=== PATIENT | female | born 1995 | race Caucasian/White ===

== ENCOUNTER 2018-04-13 22:07 | Emergency (ER) | payer BC, SELFPAY ==
[2018-04-13 22:55] LABS: Absolute Monocytes 0.6 K/uL (0.1-1.3); Absolute Neutrophil 7.5 K/uL (1.8-8.0); Basophils % 0.4 % (0-1.3); Eosinophils % 1.2 % (0-4.4); Hematocrit 43.4 % (36.0-45.0); Lymphocytes % 19.2 % (15.3-44.8); MCH 27.1 pg (27.0-35.0); MCV 80.9 fL (80-100); MPV 8.6 fL (7.6-11.3); Monocytes % 6.2 % (3.3-12.3); RBC Red Blood Cell Count 5.36 M/uL (3.86-4.86)
[2018-04-13 23:01] LABS: Urine Blood NEGATIVE (NEG); Urine Glucose NEGATIVE (NEG); Urine Protein TRACE (NEG); Urine Specific Gravity >1.030 (1.005-1.030); Urine pH 5.5 (5.0-7.0)
[2018-04-13 23:02] LABS: Urine Bacteria <20 /HPF (<20); Urine Culture Reflex Order NOT NEEDED; Urine Mucus 1+ /HPF (NONE SEEN); Urine RBC <5 /HPF (NONE SEEN)
[2018-04-13 23:08] LABS: Bicarbonate 26 mEq/L (21-31); Glucose Level 95 mg/dL (65-120); Lipase 20 U/L (22-51); Potassium 3.7 mEq/L (3.6-5.0); Sodium Level 139 mEq/L (135-145)
[2018-04-13 23:15] LABS: ALT/SGPT 19 IU/L (10-60); AST/SGOT 17 IU/L (10-42); Albumin 4.7 g/dL (3.2-5.5); Alkaline Phosphatase 64 IU/L (42-121); Amylase Level 27 U/L (28-100); BUN Blood Urea Nitrogen 16 mg/dL (6-20); Bilirubin Direct < 0.1 mg/dL (0-0.2); Bilirubin Total 0.5 mg/dL (0.3-1.2); Protein, Total 8.2 g/dL (6.0-8.3)
--- NOTE | 2018-04-13 23:59 | EDPHYS ---
Physician Documentation [facility] Name: Sis Arroyo Age: 23 yrs Sex: Female : 1995 Arrival Date: 04/13/2018 Time: 22:11 Bed 30 Private MD: ED Physician David Cummings HPI: 04/14 00:02 This 23 yrs old Female presents to ER via Ambulatory with complaints of tw4 Abdominal Pain, Nausea/Vomiting/Diarrhea. 00:02 The patient presents to the emergency department with nausea, vomiting, diarrhea. tw4 Onset: The symptoms/episode began/occurred 3 day(s) ago. Possible causes: unknown. The symptoms are aggravated by nothing. The symptoms are alleviated by nothing. Associated signs and symptoms: The patient has no apparent associated signs or symptoms. Severity of symptoms: At their worst the symptoms were moderate in the emergency department the symptoms are unchanged. The patient has not experienced similar symptoms in the past. 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 - Social history:: Smoking status: Patient/guardian denies using tobacco, never smoked. ROS: 04/14 00:02 Constitutional: Negative for fever, chills, and weight loss, Cardiovascular: Negative tw4 for chest pain, palpitations, and edema, Respiratory: Negative for shortness of breath, cough, wheezing, and pleuritic chest pain. MS/Extremity: Negative for injury and deformity, Skin: Negative for injury, rash, and discoloration, Neuro: Negative for headache, weakness, numbness, tingling, and seizure. Abdomen/GI: Positive for abdominal pain, nausea, vomiting, diarrhea. Exam: 00:02 Constitutional: This is a well developed, well nourished patient who is awake, alert, tw4 and in no acute distress. Head/Face: Normocephalic, atraumatic. Chest/axilla: Normal chest wall appearance and motion. Nontender with no deformity. No lesions are appreciated. Cardiovascular: Regular rate and rhythm with a normal S1 and S2. No gallops, murmurs, or rubs. Normal PMI, no JVD. No pulse deficits. Respiratory: Lungs have equal breath sounds bilaterally, clear to auscultation and percussion. No rales, rhonchi or wheezes noted. No increased work of breathing, no retractions or nasal flaring. Abdomen/GI: Soft, non-tender, with normal bowel sounds. No distension or tympany. No guarding or rebound. No evidence of tenderness throughout. MS/ Extremity: Pulses equal, no cyanosis. Neurovascular intact. Full, normal range of motion. Neuro: Awake and alert, GCS 15, oriented to person, place, time, and situation. Cranial nerves II-XII grossly intact. Motor strength 5/5 in all extremities. Sensory grossly intact. Cerebellar exam normal. Normal gait. Vital Signs: 04/13 22:26 BP 106 / 57; Pulse 98; Resp 17; Temp 98.7; Pulse Ox 99% ; rk2 22:33 Weight 104.33 kg; rk2 23:00 BP 122 / 82; Pulse 102; Resp 17; Pulse Ox 99% ; rk2 04/14 00:13 BP 144 / 96; Pulse 99; Resp 17; Pulse Ox 99% on R/A; rk2 MDM: 04/13 22:33 Patient medically screened. tw4 04/14 00:02 Differential diagnosis: Nonspecific abd pain, gastritis, cholecystitis, pancreatitis. tw4 Data reviewed: vital signs, nurses notes. Counseling: I had a detailed discussion with the patient and/or guardian regarding: the historical points, exam findings, and any diagnostic results supporting the discharge/admit diagnosis, lab results. Medication response: Medication response: GI Cocktail relieved the patient's pain. The symptoms have resolved. Response to treatment: the patient's symptoms have markedly improved after treatment. Admission orders: after a detailed discussion of the patient's condition and case, the admit orders are written by me. Special discussion: Based on the patient's Hx, exam, and Dx evaluation, there is no indication for emergent surgery or inpatient Tx. It is understood by the patient/guardian that if the Sx's persist or worsen they need to return immediately for re-evaluation. I discussed with the patient/guardian in detail that at this point there is no indication for admission to the hospital. It is understood, however, that if the symptoms persist or worsen the patient needs to return immediately for re-evaluation. 04/13 22:38 Order name: Amylase, Serum; Complete Time: 23:58 04/13 22:38 Order name: Basic Metabolic Panel; Complete Time: 23:58 04/13 22:38 Order name: CBC with Diff; Complete Time: 23:58 04/13 22:38 Order name: Creatinine for Radiology; Complete Time: 23:58 04/13 22:38 Order name: Hepatic Function; Complete Time: 23:58 04/13 22:38 Order name: Lipase; Complete Time: 23:58 04/13 22:38 Order name: Urine Test (obtain specimen); Complete Time: 22:53 04/13 22:38 Order name: Urine Microscopic Only; Complete Time: 23:58 04/13 22:38 Order name: IV Saline Lock; Complete Time: 22:44 04/13 22:38 Order name: Labs collected and sent; Complete Time: 22:44 04/13 22:38 Order name: Urine Dipstick-Ancillary (obtain specimen); Complete Time: 22:52 04/13 22:58 Order name: Urine Dipstick--Ancillary (enter results); Complete Time: 23:58 mt 04/13 22:58 Order name: Urine --Ancillary (enter results); Complete Time: 23:58 mt Administered Medications: 00:10 Drug: GI Cocktail with - (Phenobarbital-Belladonna 10 ml, Maalox Suspension 30 rk2 ml, Lidocaine Liquid 2 % 20 ml) Route: PO; 00:10 Follow up: given \T\ DC rk2 Disposition: 04/13/18 23:58 Discharged to Home. Impression: Gastritis, unspecified, without bleeding. - Condition is Stable. - Discharge Instructions: Gastritis, Adult. - Prescriptions for Protonix 40 mg Oral Tablet - take 1 tablet by ORAL route once daily; 30 tablet. Zofran 4 mg Oral Tablet - take 1 tablet by ORAL route every 12 hours As needed; 6 tablet. - Medication Reconciliation Form, Thank You Letter, Antibiotic Education, Prescription Opioid Use form. - Follow up: Private Physician; When: Upon discharge from the Emergency Department; Reason: Recheck today's complaints, Continuance of care, Re-evaluation by your physician. - Problem is an ongoing problem. - Symptoms have improved. Signatures: Dispatcher [employer] EDMS David Cummings MD MD tw4 Valeria Barrios RN RN rk2 Corrections: (The following items were deleted from the chart) 00:16 04/13 23:58 04/13/2018 23:58 Discharged to Home. Impression: Gastritis, unspecified, rk2 without bleeding. Condition is Stable. Forms are Medication Reconciliation Form, Thank You Letter, Antibiotic Education, Prescription Opioid Use. Follow up: Private Physician; When: Upon discharge from the Emergency Department; Reason: Recheck today's complaints, Continuance of care, Re-evaluation by your physician. Problem is an ongoing problem. Symptoms have improved. tw4
--- NOTE | 2018-04-13 23:59 | ER ---
Nurse's Notes [facility] Name: Sis Arroyo Age: 23 yrs Sex: Female : 1995 Arrival Date: 04/13/2018 Time: 22:11 Bed 30 Private MD: Diagnosis: Gastritis, unspecified, without bleeding Presentation: 04/13 22:21 Presenting complaint: Patient states: Pt. c/o ABD pain, with N/V/D x 2-3 days. Pt. was rk2 seen \T\ GI doctor today, no blood work. Transition of care: patient was not received from another setting of care. Onset of symptoms was April 13, 2018. Initial Sepsis Screen: Does the patient meet any 2 criteria? No. Patient's initial sepsis screen is negative. Does the patient have a suspected source of infection? No. Patient's initial sepsis screen is negative. Care prior to arrival: None. 22:21 Method Of Arrival: Ambulatory [facility] 22:21 Acuity: FABRICIO 3 rk2 Triage Assessment: 22:24 General: Appears in no apparent distress. obese, well developed, well nourished, rk2 Behavior is calm, cooperative. Pain: Complains of pain in abdomen. Neuro: Level of Consciousness is alert, obeys commands, Oriented to person, place, time, situation. Respiratory: Airway is patent Respiratory effort is even, unlabored, Respiratory pattern is regular, symmetrical. GI:. Derm: Skin is pink, warm \T\ dry. 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 - Social history:: Smoking status: Patient/guardian denies using tobacco, never smoked. Screenin:35 Abuse screen: Denies threats or abuse. rk2 22:35 Nutritional screening: No deficits noted. Tuberculosis screening: No symptoms or risk rk2 factors identified. Fall Risk None identified. Assessment: 22:35 GI: Abd is soft X 4 quads Abdomen is tender to palpation X 4 quads. rk2 Vital Signs: 22:26 BP 106 / 57; Pulse 98; Resp 17; Temp 98.7; Pulse Ox 99% ; rk2 22:33 Weight 104.33 kg; rk2 23:00 BP 122 / 82; Pulse 102; Resp 17; Pulse Ox 99% ; rk2 04/14 00:13 BP 144 / 96; Pulse 99; Resp 17; Pulse Ox 99% on R/A; rk2 ED Course: 04/13 22:11 Patient arrived in ED. es 22:13 Valeria Barrios, RN is Primary Nurse. rk2 22:24 Triage completed. rk2 22:33 David Cummings MD is Attending Physician. tw4 22:35 Patient has correct armband on for positive identification. Bed in low position. Call rk2 light in reach. Pulse ox on. 22:35 Arm band placed on. rk2 04/14 00:15 No provider procedures requiring assistance completed. IV discontinued. rk2 Administered Medications: 00:10 Drug: GI Cocktail with - (Phenobarbital-Belladonna 10 ml, Maalox Suspension 30 rk2 ml, Lidocaine Liquid 2 % 20 ml) Route: PO; 00:10 Follow up: given \T\ DC rk2 Intake: Outcome: 04/13 23:58 Discharge ordered by . tw4 04/14 00:15 Discharged to home ambulatory. rk2 Condition: good Discharge instructions given to patient, Prescriptions given X 2. 00:16 Patient left the ED. rk2 Signatures: Carola Duran Terrence, MD MD tw4 Valeria Barrios, RN RN rk2 Corrections: (The following items were deleted from the chart) 00:13 04/13 23:00 BP 144 / 96; Pulse 99bpm; Resp 17bpm; Pulse Ox 99% RA; rk2 rk2
[2018-04-14] MEDS ORDERED: LIDOCAINE VISCOUS 2% SOLN 15 ML UDC ONE (00:04)
[2018-04-14] MEDS ORDERED: MAGNE/ALUM HYDROXD 30 ML UCUP ONE (00:04)
[2018-04-14 00:39] VITALS: TEMP 98.7; O2SAT 99
[2018-04-14 00:42] VITALS: BP 144/96
== END 2018-04-14 00:16 | disposition home or self-care (01) ==
LOC: ER 22:07
DX: K29.70 Gastritis, unspecified, without bleeding (principal)
CPT/HCPCS: 36415; 80048; 80076; 81003; 81015; 81025; 82150; 83690; 85025; 99283

== ENCOUNTER 2018-05-18 01:50 | Emergency (ER) | payer BC ==
--- NOTE | 2018-05-18 02:23 | ER ---
Nurse's Notes [facility] Name: Sis Arroyo Age: 23 yrs Sex: Female : 1995 Arrival Date: 05/18/2018 Time: 01:58 Bed 14 Private MD: Diagnosis: Otitis media, unspecified, left ear;Acute sinusitis, unspecified;Cough Presentation: 05/18 02:08 Presenting complaint: Patient states: "My face is swollen, my left side of my mouth and bs1 teeth hurt, my throat is sore, I cant breathe out of my nose and if I lay down I feel short of breath and my chest feels congested.". Transition of care: patient was not received from another setting of care. Onset of symptoms was May 17, 2018. Risk Assessment: Do you want to hurt yourself or someone else? Patient reports no desire to harm self or others. Initial Sepsis Screen: Does the patient meet any 2 criteria? HR > 90 bpm. Does the patient have a suspected source of infection? No. Patient's initial sepsis screen is negative. Care prior to arrival: None. 02:08 Method Of Arrival: Ambulatory bs1 02:08 Acuity: FABRICIO 4 bs1 Triage Assessment: 02:32 General: Behavior is cooperative, appropriate for age. 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 - Social history:: Smoking status: Patient/guardian denies using tobacco. - Ebola Screening: : Patient negative for fever greater than or equal to 101.5 degrees Fahrenheit, and additional compatible Ebola Virus Disease symptoms Patient denies exposure to infectious person. Screenin:14 Abuse screen: Denies threats or abuse. Denies injuries from another. Nutritional bs1 screening: No deficits noted. Tuberculosis screening: No symptoms or risk factors identified. Fall Risk None identified. Assessment: 02:15 General: Appears in no apparent distress. uncomfortable, obese. Pain: Complains of pain bs1 in throat, face, left ear/teeth. Neuro: Level of Consciousness is awake, alert, obeys commands, Oriented to person, place, time, situation, Appropriate for age. Cardiovascular: Heart tones S1 S2 present Capillary refill < 3 seconds Patient's skin is warm and dry. Respiratory: Reports shortness of breath at rest on exertion cough that is productive, Airway is patent Trachea midline Respiratory effort is even, unlabored, Respiratory pattern is regular, symmetrical, GI: Abdomen is round Bowel sounds present X 4 quads. Reports nausea. : No signs and/or symptoms were reported regarding the genitourinary system. EENT: Throat is reddened Reports nasal congestion patient reports face swelling, left side of teeth hurting, sore throat, and chest congestion. Derm: Skin is intact, Skin is pink, warm \\T\\ dry. normal. Musculoskeletal: Circulation, motion, and sensation intact. Capillary refill < 3 seconds, Range of motion: intact in all extremities. Vital Signs: 02:12 BP 141 / 122; Pulse 105; Resp 17; Temp 98.8(O); Pulse Ox 100% on R/A; Weight 117.93 kg; bs1 Height 5 ft. 3 in. (160.02 cm); Pain 5/10; 02:18 BP 136 / 99; Pulse 98; Resp 16 S; Pulse Ox 100% on R/A; bs1 02:12 Body Mass Index 46.06 (117.93 kg, 160.02 cm) bs1 ED Course: 01:58 Patient arrived in ED. es 02:02 Onelia Harris, MARIMAR is Primary Nurse. bs1 02:03 Mariano Shelton PA is PHCP. cp 02:03 Samuel Field MD is Attending Physician. cp 02:11 Triage completed. bs1 02:19 Patient has correct armband on for positive identification. Bed in low position. Call bs1 light in reach. Side rails up X 1. Pulse ox on. NIBP on. 02:19 Arm band placed on left wrist. bs1 02:31 No provider procedures requiring assistance completed. Patient did not have IV access bs1 during this emergency room visit. Administered Medications: No medications were administered Outcome: 02:23 Discharge ordered by . cp 02:32 Discharged to home ambulatory. bs1 02:32 Condition: stable 02:32 Discharge instructions given to patient, Instructed on discharge instructions, follow up and referral plans. medication usage, Demonstrated understanding of instructions, follow-up care, medications, Prescriptions given X 3. 02:33 Patient left the ED. bs1 Signatures: Carola Duran Corey, PA PA cp Salazar, Brittany, RN RN bs1 Corrections: (The following items were deleted from the chart) :33 02:18 BP 136 / 99; bs1 bs1
--- NOTE | 2018-05-18 02:23 | EDPHYS ---
Physician Documentation [facility] Name: Sis Arroyo Age: 23 yrs Sex: Female : 1995 Arrival Date: 05/18/2018 Time: 01:58 Bed 14 Private MD: ED Physician Samuel Field HPI: 05/18 02:14 This 23 yrs old Female presents to ER via Ambulatory with complaints of cp Cough, Sore Throat. 02:14 The patient or guardian reports cough, that is intermittent, with productive sputum, cp that is yellow. Onset: The symptoms/episode began/occurred 2 day(s) ago. Severity of symptoms: in the emergency department the symptoms are unchanged, despite home interventions. Associated signs and symptoms: Pertinent positives: earache, sore throat, left maxillary sinus pain, Pertinent negatives: chest pain, diarrhea, fever, vomiting. 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 - Social history:: Smoking status: Patient/guardian denies using tobacco. - Ebola Screening: : Patient negative for fever greater than or equal to 101.5 degrees Fahrenheit, and additional compatible Ebola Virus Disease symptoms Patient denies exposure to infectious person. ROS: 02:16 Eyes: Negative for injury, pain, redness, and discharge. cp 02:16 Constitutional: Negative for body aches, chills, fever, poor PO intake. 02:16 ENT: Positive for ear pain, sinus congestion, sinus pain, sore throat, Teeth pain 02:16 Neck: Negative for pain with movement, pain at rest, stiffness, tenderness, bony tenderness. 02:16 Cardiovascular: Negative for chest pain, edema, palpitations. 02:16 Respiratory: Positive for cough, with yellow sputum, Negative for shortness of breath, wheezing. 02:16 Abdomen/GI: Negative for abdominal pain, nausea, vomiting, diarrhea, constipation. 02:16 Back: Negative for pain at rest, pain with movement, radiated pain. 02:16 Skin: Negative for cellulitis, rash. 02:16 Neuro: Positive for headache, Negative for altered mental status, weakness. 02:16 All other systems are negative. Exam: 02:18 Constitutional: The patient appears in no acute distress, alert, awake, non-toxic, well cp developed, well nourished. 02:18 Head/face: Sinus tenderness, that is moderate, is located over the left maxillary sinus. 02:18 Eyes: Periorbital structures: appear normal, Pupils: equal, round, and reactive to light and accomodation, Extraocular movements: intact throughout, Conjunctiva: normal, no exudate, no injection, Sclera: no appreciated abnormality, Lids and lashes: appear normal, bilaterally. 02:18 ENT: External ear(s): are unremarkable, Ear canal(s): are normal, clear, TM's: bulging, is not appreciated, bilaterally, erythema, that is mild, on the left, Examination of the other ear shows no obvious abnormality, Nose: Nasal mucosa: edematous, Turbinates: are swollen bilaterally, nasal drainage, that is minimal, Mouth: Lips: moist, Oral mucosa: pink and intact, moist, Posterior pharynx: is normal, airway is patent, no erythema, no exudate. 02:18 Neck: ROM/movement: is normal, is supple, without pain, no range of motions limitations, no meningismus, no nuchal rigidity, Lymph nodes: no appreciated lymphadenopathy. 02:18 Chest/axilla: Inspection: normal, Palpation: is normal, no crepitus, no tenderness. 02:18 Cardiovascular: Rate: tachycardic, Rhythm: regular. 02:18 Respiratory: the patient does not display signs of respiratory distress, Respirations: normal, no use of accessory muscles, no retractions, no splinting, no tachypnea, labored breathing, is not present, Breath sounds: are clear throughout, no decreased breath sounds, no stridor, no wheezing. 02:18 Abdomen/GI: Exam negative for discomfort, distension, guarding, Inspection: obese 02:18 Back: pain, is absent, ROM is normal. 02:18 Skin: cellulitis, is not appreciated, no rash present. Vital Signs: 02:12 BP 141 / 122; Pulse 105; Resp 17; Temp 98.8(O); Pulse Ox 100% on R/A; Weight 117.93 kg; bs1 Height 5 ft. 3 in. (160.02 cm); Pain 5/10; 02:18 BP 136 / 99; Pulse 98; Resp 16 S; Pulse Ox 100% on R/A; bs1 02:12 Body Mass Index 46.06 (117.93 kg, 160.02 cm) bs1 MDM: 02:04 Patient medically screened. cp 02:21 Differential Diagnosis: Bronchitis Sinusitis Pharyngitis Otitis Media Viral Syndrome cp Pneumonia. Data reviewed: vital signs, nurses notes, and as a result, I will discharge patient. Counseling: I had a detailed discussion with the patient and/or guardian regarding: the presence of at least one elevated blood pressure reading (>120/80) during this emergency department visit, to return to the emergency department if symptoms worsen or persist or if there are any questions or concerns that arise at home. Administered Medications: No medications were administered Disposition: 02:34 Chart complete. cp 02:35 Co-signature as Attending Physician, Samuel Field MD. pkl Disposition: 05/18/18 02:23 Discharged to Home. Impression: Otitis media, unspecified, left ear, Acute sinusitis, unspecified, Cough. - Condition is Stable. - Discharge Instructions: Otitis Media, Adult, Sinusitis, Adult, Cool Mist Vaporizers, Cough, Adult. - Prescriptions for Flonase Allergy Relief 50 mcg/actuation Nasal spray,suspension - inhale 1 spray by INTRANASAL route once daily; 1 unit. Tessalon Perles 100 mg Oral Capsule - take 1 capsule by ORAL route every 8 hours As needed; 15 capsule. Zithromax Z- Klaus 250 mg Oral Tablet - take 1 tablet by ORAL route as directed for 5 days Day 1 - take two (2) tablets one time. Day 2, 3, 4 , 5 take one (1) tablet once daily.; 6 tablet. - Medication Reconciliation Form, Thank You Letter, Antibiotic Education, Prescription Opioid Use form. - Follow up: Private Physician; When: 1 - 2 days; Reason: Recheck today's complaints. - Problem is new. - Symptoms are unchanged. Signatures: Samuel Field MD MD pkl Mariano Shelton PA PA cp Salazar, Brittany, RN RN bs1 Corrections: (The following items were deleted from the chart) 02:33 02:23 05/18/2018 02:23 Discharged to Home. Impression: Otitis media, unspecified, left bs1 ear; Acute sinusitis, unspecified; Cough. Condition is Stable. Forms are Medication Reconciliation Form, Thank You Letter, Antibiotic Education, Prescription Opioid Use. Follow up: Private Physician; When: 1 - 2 days; Reason: Recheck today's complaints. Problem is new. Symptoms are unchanged. cp
[2018-05-18 04:01] VITALS: TEMP 98.8; O2SAT 100
[2018-05-18 04:02] VITALS: BP 136/99
== END 2018-05-18 02:33 | disposition home or self-care (01) ==
LOC: ER 01:50
DX: H66.92 Otitis media, unspecified, left ear (principal); J01.90 Acute sinusitis, unspecified; R05 Cough; Z88.0 Allergy status to penicillin
CPT/HCPCS: 99283

== ENCOUNTER 2019-10-04 09:32 | Emergency (ER) | payer BC, SELFPAY ==
--- NOTE | 2019-10-04 11:31 | ER ---
Nurse's Notes [facility] Name: Sis Arroyo Age: 24 yrs Sex: Female : 1995 Arrival Date: 10/04/2019 Time: 09:36 Bed 12 Private MD: None, None Diagnosis: Bronchitis, not specified as acute or chronic;Acute pharyngitis Presentation: 10/04 09:39 Presenting complaint: Patient states: hoarse voice, sore throat, nasal drainage and ss bilateral ear pain x 2 days. Transition of care: patient was not received from another setting of care. Onset of symptoms was October 02, 2019. Risk Assessment: Do you want to hurt yourself or someone else? Patient reports no desire to harm self or others. Initial Sepsis Screen: Does the patient meet any 2 criteria? No. Patient's initial sepsis screen is negative. Does the patient have a suspected source of infection? No. Patient's initial sepsis screen is negative. Care prior to arrival: None. 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 - Social history:: Smoking status: Patient/guardian denies using tobacco. - Ebola Screening: : Patient denies exposure to infectious person Patient denies travel to an Ebola-affected area in the 21 days before illness onset. - Family history:: not pertinent. Screenin:26 Abuse screen: Denies threats or abuse. Denies injuries from another. Nutritional ss screening: No deficits noted. Tuberculosis screening: Never had TB. Fall Risk None identified. Assessment: 10:26 General: Appears in no apparent distress. Behavior is calm, cooperative, Reports ss feeling ill for 2-3 days. Pain: Complains of pain in sore throat, painful cough Pain currently is 8 out of 10 on a pain scale. Quality of pain is described as aching, Pain began 2-3 days ago. Is continuous. Neuro: Level of Consciousness is awake, alert, obeys commands, Oriented to person, place, time, situation. Cardiovascular: Pulses are palpable in right radial artery and left radial artery. Respiratory: Airway is patent Respiratory effort is even, unlabored, Respiratory pattern is regular, symmetrical, Breath sounds are clear bilaterally. GI: Patient currently denies diarrhea, vomiting. : No signs and/or symptoms were reported regarding the genitourinary system. Denies burning with urination, urinary frequency. EENT: Throat is reddened hoarse voice. EENT: Reports nasal congestion nasal discharge. Derm: Skin is. Musculoskeletal: Range of motion: intact in all extremities. Vital Signs: 09:40 BP 128 / 82; Pulse 80; Resp 16; Temp 97.9(TE); Pulse Ox 96% on R/A; Weight 99.79 kg; ss Height 5 ft. 1 in. (154.94 cm); Pain 8/10; 09:40 Body Mass Index 41.57 (99.79 kg, 154.94 cm) ED Course: 09:36 Patient arrived in ED. mr 09:36 None, None is Private Physician. mr 09:40 Triage completed. ss 09:40 Arm band placed on right wrist. 10:21 Mariano Keane MD is Attending Physician. [facility] 10:26 Patient has correct armband on for positive identification. Bed in low position. Call ss light in reach. 11:50 Eulalia Toure, MARIMAR is Primary Nurse. 11:50 No provider procedures requiring assistance completed. Patient did not have IV access ss during this emergency room visit. Administered Medications: 11:46 Drug: Zithromax 500 mg Route: PO; 11:51 Follow up: Response: Medication administered at discharge. Outcome: 11:30 Discharge ordered by . [facility] 11:50 Discharged to home ambulatory. 11:50 Condition: good 11:50 Discharge instructions given to patient, Instructed on discharge instructions, follow up and referral plans. medication usage, Demonstrated understanding of instructions, follow-up care, medications, Prescriptions given X 3. 11:51 Patient left the ED. Signatures: Mariano Keane MD MD cha Rivera, Mary mr Eulalia Toure, RN RN ss
--- NOTE | 2019-10-04 11:32 | EDPHYS ---
Physician Documentation [facility] Name: Sis Arroyo Age: 24 yrs Sex: Female : 1995 Arrival Date: 10/04/2019 Time: 09:36 Bed 12 Private MD: None, None ED Physician Mariano Keane HPI: 10/04 11:27 This 24 yrs old Female presents to ER via Ambulatory with complaints of kalani Cough, Sore Throat, Congestion. 11:27 The patient or guardian reports cough, that is constant, flu symptoms, arthralgias. kalani Onset: The symptoms/episode began/occurred 3 day(s) ago. Severity of symptoms: At their worst the symptoms were mild, moderate, in the emergency department the symptoms have improved, mildly. Modifying factors: The symptoms are alleviated by nothing, the symptoms are aggravated by nothing. Associated signs and symptoms: The patient has no apparent associated signs or symptoms. The patient has experienced a previous episode, many years ago. 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 - Social history:: Smoking status: Patient/guardian denies using tobacco. - Ebola Screening: : Patient denies exposure to infectious person Patient denies travel to an Ebola-affected area in the 21 days before illness onset. - Family history:: not pertinent. ROS: 11:27 Constitutional: Negative for fever, chills, and weight loss, Eyes: Negative for injury, kalani pain, redness, and discharge, ENT: Negative for injury, pain, and discharge, Neck: Negative for injury, pain, and swelling, Cardiovascular: Negative for chest pain, palpitations, and edema, Abdomen/GI: Negative for abdominal pain, nausea, vomiting, diarrhea, and constipation, Back: Negative for injury and pain, : Negative for injury, bleeding, discharge, and swelling, MS/Extremity: Negative for injury and deformity, Skin: Negative for injury, rash, and discoloration, Neuro: Negative for headache, weakness, numbness, tingling, and seizure, Psych: Negative for depression, anxiety, suicide ideation, homicidal ideation, and hallucinations, Allergy/Immunology: Negative for hives, rash, and allergies, Endocrine: Negative for neck swelling, polydipsia, polyuria, polyphagia, and marked weight changes, Hematologic/Lymphatic: Negative for swollen nodes, abnormal bleeding, and unusual bruising. 11:27 Respiratory: Positive for cough, with green sputum. Exam: 11:27 Constitutional: This is a well developed, well nourished patient who is awake, alert, kalani and in no acute distress. Head/Face: Normocephalic, atraumatic. Eyes: Pupils equal round and reactive to light, extra-ocular motions intact. Lids and lashes normal. Conjunctiva and sclera are non-icteric and not injected. Cornea within normal limits. Periorbital areas with no swelling, redness, or edema. ENT: Nares patent. No nasal discharge, no septal abnormalities noted. Tympanic membranes are normal and external auditory canals are clear. Oropharynx with no redness, swelling, or masses, exudates, or evidence of obstruction, uvula midline. Mucous membranes moist. Neck: Trachea midline, no thyromegaly or masses palpated, and no cervical lymphadenopathy. Supple, full range of motion without nuchal rigidity, or vertebral point tenderness. No Meningismus. Chest/axilla: Normal chest wall appearance and motion. Nontender with no deformity. No lesions are appreciated. Cardiovascular: Regular rate and rhythm with a normal S1 and S2. No gallops, murmurs, or rubs. Normal PMI, no JVD. No pulse deficits. Respiratory: Lungs have equal breath sounds bilaterally, clear to auscultation and percussion. No rales, rhonchi or wheezes noted. No increased work of breathing, no retractions or nasal flaring. Abdomen/GI: Soft, non-tender, with normal bowel sounds. No distension or tympany. No guarding or rebound. No evidence of tenderness throughout. Back: No spinal tenderness. No costovertebral tenderness. Full range of motion. Skin: Warm, dry with normal turgor. Normal color with no rashes, no lesions, and no evidence of cellulitis. MS/ Extremity: Pulses equal, no cyanosis. Neurovascular intact. Full, normal range of motion. Neuro: Awake and alert, GCS 15, oriented to person, place, time, and situation. Cranial nerves II-XII grossly intact. Motor strength 5/5 in all extremities. Sensory grossly intact. Cerebellar exam normal. Normal gait. Psych: Awake, alert, with orientation to person, place and time. Behavior, mood, and affect are within normal limits. 11:27 Musculoskeletal/extremity: DVT Exam: No signs of deep vein thrombosis. no pain, no swelling, no tenderness, negative Homans' sign noted on exam, no appreciated bluish discoloration, no erythema, no increased warmth. Vital Signs: 09:40 BP 128 / 82; Pulse 80; Resp 16; Temp 97.9(TE); Pulse Ox 96% on R/A; Weight 99.79 kg; ss Height 5 ft. 1 in. (154.94 cm); Pain 8/10; 09:40 Body Mass Index 41.57 (99.79 kg, 154.94 cm) MDM: 10:21 Patient medically screened. [facility] 11:29 Data reviewed: vital signs, nurses notes, lab test result(s), Flu: negative. [facility] 10/04 10:41 Order name: Strep 10/04 10:41 Order name: Flu 10/04 11:23 Order name: Throat Culture EDMS Administered Medications: 11:46 Drug: Zithromax 500 mg Route: PO; 11:51 Follow up: Response: Medication administered at discharge. Disposition: 10/04/19 11:30 Discharged to Home. Impression: Bronchitis, not specified as acute or chronic, Acute pharyngitis. - Condition is Stable. - Discharge Instructions: Acute Bronchitis, Adult, Pharyngitis, Upper Respiratory Infection, Adult, Mhlz-em-Efhr, Pharyngitis, Rubc-uk-Ltcl. - Prescriptions for Bromfed DM 2- 30-10 mg/5 mL Oral syrup - take 10 milliliter by ORAL route every 4 hours; 150 milliliter. Mandi- D 12 Hour 60-120 mg Oral Tablet Sustained Release 12 hr - take 1 tablet by ORAL route every 12 hours As needed; 20 tablet. Zithromax Z- Klaus 250 mg Oral Tablet - take 1 tablet by ORAL route as directed for 5 days Day 1 - take two (2) tablets one time. Day 2, 3, 4 , 5 take one (1) tablet once daily.; 6 tablet. - Medication Reconciliation Form, Thank You Letter, Antibiotic Education, Prescription Opioid Use, Work release form form. - Follow up: Private Physician; When: 2 - 3 days; Reason: Recheck today's complaints, Continuance of care, Re-evaluation by your physician. - Problem is new. - Symptoms have improved. Signatures: Dispatcher [employer] EDMariano Germain MD MD cha Smirch, Shelby, RN RN ss Corrections: (The following items were deleted from the chart) 11:51 11:30 10/04/2019 11:30 Discharged to Home. Impression: Bronchitis, not specified as ss acute or chronic; Acute pharyngitis. Condition is Stable. Forms are Medication Reconciliation Form, Thank You Letter, Antibiotic Education, Prescription Opioid Use. Follow up: Private Physician; When: 2 - 3 days; Reason: Recheck today's complaints, Continuance of care, Re-evaluation by your physician. Problem is new. Symptoms have improved. kalani
[2019-10-04] MEDS ORDERED: AZITHROMYCIN 250 MG TAB ONE (11:45)
[2019-10-04 12:08] VITALS: BP 128/82; TEMP 97.9; O2SAT 96
--- OUTSIDE RECORDS SUMMARY | 2019-10-10 20:57 | XMS REPORT ---
:1995 [facility] [address] [place] [address] Care Team Providers Name Role Phone Unavailable Unavailable Unavailable Problems This patient has no known problems. Allergies, Adverse Reactions, Alerts This patient has no known allergies or adverse reactions. Medications This patient has no known medications.
== END 2019-10-04 11:51 | disposition home or self-care (01) ==
LOC: ER 09:32
DX: J40 Bronchitis, not specified as acute or chronic (principal); J02.9 Acute pharyngitis, unspecified; Z88.0 Allergy status to penicillin
CPT/HCPCS: 87070; 87081; 87804; 99283

== ENCOUNTER 2020-03-22 21:42 | Emergency (ER) | payer SELFPAY ==
--- OUTSIDE RECORDS SUMMARY | 2020-03-22 21:44 | XMS REPORT ---
:1995 Author Organization [facility] t Address [address] [place] [address] Care Team Providers Name Role Phone Unavailable Unavailable Unavailable Problems This patient has no known problems. Allergies, Adverse Reactions, Alerts This patient has no known allergies or adverse reactions. Medications This patient has no known medications.
--- OUTSIDE RECORDS SUMMARY | 2020-03-22 21:44 | XMS REPORT | Summary of Care ---
:1995 Author Organization [facility] Address [address] [place] [id number] Care Team Providers Name Role Phone Zackery Field MD Primary Care Provider Reason for Visit Reason Comments Appointment Encounter Details Date Type Department Care Team Description 02/28/[address] [facility] [address] [place] [address] [phone] [facility] [place], [place] [address] [phone] Allergies Active Allergy Reactions Severity Noted Date Comments Adhesive Hives Medium 10/22/2016 Pertussin Am Swelling 02/15/2019 documented as of this encounter (statuses as of 02/28/2020) Medications Medication Sig Dispensed Refills Start Date End Date Status PNV no.95/ferrous Take by mouth. 0 Active fum/folic ac ( ORAL) calcium carbonate Take by mouth. 0 Active (TUMS ORAL) docusate calcium 240 Take 1 capsule by 30 capsule 1 02/19/2019 Active mg mouth once daily capsuleIndications: as needed for Previous Constipation. section, 39 weeks gestation of , BMI 45.0-49.9, adult, Rh negative state in antepartum period ferrous sulfate 325 Take 1 tablet by 60 tablet 2 02/19/2019 Active mg (65 mg iron) mouth 2 (two) tabletIndications: times daily. Previous section, 39 weeks gestation of , BMI 45.0-49.9, adult, Rh negative state in antepartum period ibuprofen 600 mg Take 1 tablet by 30 tablet 1 02/19/2019 Active tabletIndications: mouth every 6 Previous (six) hours as section, 39 weeks needed for Pain gestation of (scale 1-3) or , BMI Pain (scale 4-6) 45.0-49.9, adult, Rh (Pain). Take with negative state in food or milk. antepartum period HYDROcodone-acetamino Take 1 tablet by 25 tablet 0 02/19/2019 Active phen 5-325 mg mouth every 6 tabletIndications: (six) hours as Previous needed for Pain section, 39 weeks (scale 4-6) or gestation of Pain (scale 7-10). , BMI 45.0-49.9, adult, Rh negative state in antepartum period documented as of this encounter (statuses as of 02/28/2020) Active Problems Problem Noted Date Pre-eclampsia, 02/22/2019 care and examination immediately after deli very 02/20/2019 Previous section complicating , ante condition or 02/20/2019 complication Single liveborn, born in hospital, delivered by maryanne an delivery 02/20/2019 39 weeks gestation of 02/19/2019 Breech presentation, single or unspecified fetus 02/08 Rh negative state in antepartum period 09/02/2018 Well woman exam with routine gynecological exam 2016 Screen for STD (sexually transmitted disease) 10/31/20 17 Morbid obesity 10/31/2017 BMI 45.0-49.9, adult 10/31/2017 Need for HPV vaccination 10/31/2017 History of PCOS 06/07/2016 documented as of this encounter (statuses as of 02/28/2020) Resolved Problems Problem Noted Date Resolved Date GBS (group B Streptococcus carrier), +RV culture, currently 02/21/2019 02/21/2019 Bacterial vaginal infection 11/05/2017 02/19/2019 Encounter for contraceptive management, unspecified type 12/201602/19/2019 Family planning counseling 10/31/2017 02/19/2019 Oral contraceptive use 11/29/2016 10/31/2017 Status post repeat low transverse section 6 11/05/2016 Previous delivery affecting 10/22/2016 10/31/2017 Liveborn , of jin , born in hospital by 10/22/2016 11/05/2016 delivery 39 weeks gestation of 10/21/2016 11/05/20 16 Nausea and vomiting during 09/18/2016 Supervision of high risk in third trimester 201510/31/2017 Rh negative state in antepartum period, third trimester 05/201610/31/2017 Elevated blood pressure reading without diagnosis of 016 10/31/2017 hypertension Heartburn during in third trimester 08/07/2016 11/29/2016 Abnormal maternal glucose tolerance, antepartum 08/07/2016 10/31/2017 Rh negative state in antepartum period, second trimester, 08/07/2016 fetus 1 Rubella immune 07/28/2016 10/31/2017 Immune to varicella 07/28/2016 10/31/2017 Previous delivery affecting , antepartum 0 06/07/2016 11/29/2016 UTI in , antepartum, second trimester 06/07/2016 10/31/2017 High-risk , second trimester 06/07/2016 Hyperemesis gravidarum, antepartum 06/07/201611/29 Acute urinary tract infection 06/06/2016 11/05/2016 documented as of this encounter (statuses as of 02/28/2020) Immunizations Name Administration Dates Next Due HPV9 10/31/2017 Influenza Virus Vaccine Quad .5 mL IM 6+ 09/02/2018 MO Influenza Virus Vaccine Quad IM 3+ YRS 09/18/2016 Rho (d) Immune Globulin 02/20/2019, 12/07/2018, 10/23/2016 Tdap 12/22/2018, 08/07/2016 documented as of this encounter Social History Tobacco Use Types Packs/Day Years Used Date Never Smoker Smokeless Tobacco: Never Used Alcohol Use Drinks/Week oz/Week Comments No 0 Standard drinks or equivalent 0.0 occasionally Sex Assigned at Date Recorded Not on file Job Start Date Occupation Industry Not on file Not on file Not on file Travel History Travel Start Travel End No recent travel history available. documented as of this encounter Last Filed Vital Signs Not on filedocumented in this encounter Plan of Treatment Date Type Specialty Care Team Description 03/07/2020 Initial Visit [facility] [address], [place] [address] [phone] Health Maintenance Due Date Last Done Comments VARICELLA VACCINES (1 of 2 - 1995 2-dose childhood series) HPV VACCINES (2 - Female 11/28/2017 10/31/2017 3-dose series) INFLUENZA VACCINE (#1) 2019 09/02/2018, 09/18/2016 PAP SMEAR 10/31/2020 10/31/2017, 06/07/2016 DTaP,Tdap,and Td Vaccines (3 12/22/2028 12/22/2018, - Td) 08/07/2016 PNEUMOCOCCAL 0-64 YEARS Aged Out No longe r eligible based COMBINED SERIES on patient's age to complete this to pic documented as of this encounter Results Not on filedocumented in this encounter Insurance Payer Benefit Plan / Subscriber ID Effective Phone Address [employer] [facility] xxxxxxxxx 2018-[address] Medic aid HEALTH CHOICE - [place] [id number] 1 MANAGED MEDICAID [place], [place] [id number] documented as of this encounter
--- OUTSIDE RECORDS SUMMARY | 2020-03-22 21:44 | XMS REPORT | Summary of Care ---
:1994 Author Organization [facility] Address [address] [place] [address] Care Team Providers Name Role Phone Zackery Field MD Primary Care Provider Reason for Visit Reason Comments Initial Visit Encounter Details Date Type Department Care Team Description 03/02/2020 Telemedicine Visit [facility] Women's Georgie Field Cramping [facility]- complicating [address] , [address], HOSPITAL DRMily antepartum (Primary [address]) [place] [address] 253165 Allergies Active Allergy Reactions Severity Noted Date Comments Adhesive Hives Medium 10/22/2016 Pertussin Am Swelling 02/15/2019 documented as of this encounter (statuses as of 03/02/2020) Medications Medication Sig Dispensed Refills Start Date End Date Status acetaminophen Take by 0 Active (TYLENOL ORAL) mouth. PNV Take 1 30 capsule 8 03/02/2020 Active 586-iias-fgzfir TAB-CAP/M2 1-dss-dha (VITAFOL by mouth FE+, WITH daily. DOCUSATE,) 90 mg iron-1 mg -50 mg-200 mg CapIndications: Cramping complicating , antepartum PNV no.95/ferrous Take by 0 Di scontinued fum/folic ac mouth. 0 (Therap y ( ORAL) comp leted) calcium carbonate Take by 0 Di scontinued (TUMS ORAL) mouth. 0 (Patient Reported) docusate calcium Take 1 30 capsule 1 02/19/2019 D iscontinued 240 mg capsule by 0 (Therapy capsuleIndications mouth once completed) : Previous daily as section, needed for 39 weeks gestation Constipation of , BMI . 45.0-49.9, adult, Rh negative state in antepartum period ferrous sulfate Take 1 60 tablet 2 02/19/2019 Dis continued 325 mg (65 mg tablet by 0 (Thera py iron) mouth 2 completed) tabletIndications: (two) times Previous daily. section, 39 weeks gestation of , BMI 45.0-49.9, adult, Rh negative state in antepartum period ibuprofen 600 mg Take 1 30 tablet 1 02/19/2019 Di scontinued tabletIndications: tablet by 0 ( Therapy Previous mouth every completed) section, 39 weeks 6 (six) gestation of hours as , BMI needed for 45.0-49.9, adult, Pain (scale Rh negative state 1-3) or Pain in antepartum (scale 4-6) period (Pain). Take with food or milk. HYDROcodone-acetam Take 1 25 tablet 0 02/19/2019 Discontinued inophen 5-325 mg tablet by 0 (Th erapy tabletIndications: mouth every completed) Previous 6 (six) section, 39 weeks hours as gestation of needed for , BMI Pain (scale 45.0-49.9, adult, 4-6) or Pain Rh negative state (scale in antepartum 7-10). period documented as of this encounter (statuses as of 03/02/2020) Active Problems Problem Noted Date Previous section complicating , ante condition or 02/20/2019 complication Rh negative state in antepartum period 09/02/2018 Morbid obesity 10/31/2017 BMI 45.0-49.9, adult 10/31/2017 Need for HPV vaccination 10/31/2017 History of PCOS 06/07/2016 Comments Yes documented as of this encounter (statuses as of 03/02/2020) Resolved Problems Problem Noted Date Resolved Date Pre-eclampsia, 02/22/2019 03/02/2020 GBS (group B Streptococcus carrier), +RV culture, currently 02/21/2019 02/21/2019 care and examination immediately after delivery 0 02/20/2019 03/02/2020 Single liveborn, born in hospital, delivered by 03/02/2020 delivery 39 weeks gestation of 02/19/2019 03/02/20 20 Breech presentation, single or unspecified fetus 02/08/2019 03/02/2020 Bacterial vaginal infection 11/05/2017 02/19/2019 Well woman exam with routine gynecological exam 10/31/2017 03/02/2020 Encounter for contraceptive management, unspecified type 12/201602/19/2019 Family planning counseling 10/31/2017 02/19/2019 Screen for STD (sexually transmitted disease) 10/31/2017 03/02/2020 Oral contraceptive use 11/29/2016 10/31/2017 Status post repeat low transverse section 6 11/05/2016 Previous delivery affecting 10/22/2016 10/31/2017 Liveborn infant, of jin , born in hospital by [...] as of this encounter (statuses as of 03/02/2020) Immunizations Name Administration Dates Next Due HPV9 10/31/2017 Influenza Virus Vaccine Quad .5 mL IM 6+ 09/02/2018 MO Influenza Virus Vaccine Quad IM 3+ YRS 09/18/2016 Rho (d) Immune Globulin 02/20/2019, 12/07/2018, 10/23/2016 Tdap 12/22/2018, 08/07/2016 documented as of this encounter Social History Tobacco Use Types Packs/Day Years Used Date Never Smoker Smokeless Tobacco: Never Used Alcohol Use Drinks/Week oz/Week Comments Not Currently 0 Standard drinks or equivalent 0.0 Comments Yes Sex Assigned at Date Recorded Not on file Job Start Date Occupation Industry Not on file Not on file Not on file Travel History Travel Start Travel End No recent travel history available. documented as of this encounter Last Filed Vital Signs Vital Sign Reading Time Taken Comments Blood Pressure - - Pulse - - Temperature - - Respiratory Rate - - Oxygen Saturation - - Inhaled Oxygen Concentration - - Weight - - Height 154.9 cm (5' 1") 03/02/2020 8:57 AM CDT Body Mass Index - - documented in this encounter Progress Notes Georgie Field MD - 03/02/2020 9:00 AM CDT TELEHEALTH NOTE Verbal consent obtained from Patient: Sis Arroyo for telehealth services provided belowdue to COVID-19 crises. Communication with patient was conducted via Telephone. Location of Patient: Home Location of Provider: Office Date of Service: 03/02/2020 Chief Complaint: routine visit HPI: Sis Arroyo is a 24 year old female @ Unknown by Patient's last menstrual period was 11/09/2019 (approximate). here for NOB. Had a positive UPT about 6 days ago. + irregularperiod (skip a period every 1-2 months). Denies vaginal bleeding or spotting. + random lower abdominal cramping, 1/10 in severity. Needs PNV Rx. Will get flu vaccines at next visit. Past Medical History: Diagnosis Date Bacterial vaginal infection 11/05/2017 Esophageal reflux fairly well controlled Morbid obesity PCOS (polycystic ovarian syndrome) 2014 Pre-eclampsia, 02/22/2019 Rh negative state in antepartum period, second trimester, fetus 1 07/28/2016 STD (sexually transmitted disease) gc/ct age 17 MEDICATIONS: Outpatient Medications Marked as Taking for the 03/02/20 encounter (Telemedicine Visit) with Manish Field MD Medication Sig Dispense Refill acetaminophen (TYLENOL ORAL) Take by mouth. PNV 376-jqez-kzmeso 1-dss-dha (VITAFOL FE+, WITH DOCUSATE,) 90 mg iron-1 mg -50 mg-200 mg Cap Take 1 TAB-CAP/M2 by mouth daily. 30 capsule 8 ROS Denies fever, chills, chest pain, SOB, coughing, constipation, diarrhea, vomiting. + nausea. Pain score: 0 TELEHEALTH EXAM Alert and answering/asking questions appropriately ASSESSMENT/ PLAN Sis Arroyo is a 24 year old female with PMH as above presenting with: 1. Cramping complicating , antepartum - HCG, QUANTITATIVE, ; Standing - URINALYSIS; Future - PNV 428-zxer-ffnait 1-dss-dha (VITAFOL FE+, WITH DOCUSATE,) 90 mg iron-1 mg - 50 mg-200 mg Cap; Take 1 TAB-CAP/M2 by mouth daily. Dispense: 30 capsule; Refill: 8 - CBC WITH DIFF; Future - WORKUP, BLOOD BANK; Future - follow-up pending results Discussed about COVID-19/flu precautions. Social distancing, frequent hand washings, and to follow CDC recommendations discussed. Indications for testing discussed. After visit summary (AVS ) documentation will be available through [employer] for this encounter. Georgie Field MD 03/02/2020 9:24 AM documented in this encounter Plan of Treatment Date Type Specialty Care Team Description 03/03/2020 Tar Chaser Visit Phlebotomy 2, Adc Lab 03/07/2020 Initial Visit OB Satellites Ryan Bob, CNP [address] [place], [place] [address] [phone] Name Type Priority Associated Diagnoses Order S chedule HCG, QUANTITATIVE, LAB Routine Cramping complicating 48-72 hrs for 3 , antepartum Occurr ences starting 03/02/2020 unti l 04/01/2020 URINALYSIS LAB Routine Cramping complicating Expect ed: 03/02/2020, , antepartum s: 03/02/2021 CBC WITH DIFF LAB Routine Cramping complicating Expec shannan: 03/02/2020, , antepartum s: 03/02/2021 WORKUP, BLOOD LAB Routine Cramping complicat ing Expected: 03/02/2020, BANK , antepartum s: 03/02/2021 Health Maintenance Due Date Last Done Comments [...] Results Not on filedocumented in this encounter Visit Diagnoses Diagnosis Cramping complicating , antepar mei - Primary documented in this encounter Insurance Payer Benefit Plan / Subscriber ID Effective Dates Phone Addre ss Type Group TMHP MEDICAID OF xxxxxxxxx 2020-Present [phone] [place] [id number] [place] [phone] documented as of this encounter
--- OUTSIDE RECORDS SUMMARY | 2020-03-22 21:45 | XMS REPORT | Summary of Care ---
:1994 Author Organization [facility] Address [address] [place] [address] Care Team Providers Name Role Phone Zackery Field MD Primary Care Provider Reason for Visit Reason Comments Assessment Encounter Details Date Type Department Care Team Description 03/02/2020 Telephone [facility] Women's Georgie Field MD Assessment Healthcare- [address], [address] [place] [address] [place] [address] [phone] Allergies Active Allergy Reactions Severity Noted Date Comments Adhesive Hives Medium 10/22/2016 Pertussin Am Swelling 02/15/2019 documented as of this encounter (statuses as of 03/02/2020) Medications Medication Sig Dispensed Refills Start Date End Date Status acetaminophen (TYLENOL Take by mouth. 0 Active ORAL) PNV 759-zzzk-ivsuyd Take 1 30 capsule 8 03/02/2020 Active 1-dss-dha (VITAFOL FE+, TAB-CAP/M2 by WITH DOCUSATE,) 90 mg mouth daily. iron-1 mg -50 mg-200 mg CapIndications: Cramping complicating , antepartum documented as of this encounter (statuses as [...] Treatment Date Type Specialty Care Team Description 03/02/2020 Gas Dispenser Visit Phlebotomy Georgie Field MD [address] [place] [address] [address] [place], [place] [address] 2, Adc Lab Name Type Priority Associated Diagnoses Order S chedule URINE CULTURE LAB Routine Dysuria Expected: 01/2020, Expires: 03/02/2021 Health Maintenance Due Date Last Done [...] filedocumented in this encounter Visit Diagnoses Diagnosis Dysuria - Primary documented in this encounter Insurance Payer Benefit Plan Subscriber ID Effective Phone Address Typ e / Group Dates TMHP MEDICAID OF xxxxxxxxx 2020-Prese [phone] dicaid [place] [address] [place] [address] [facility] x[facility] 2020-Prese [phone] [address] Medicaid [place]OMEN [place] [address] [place] [address] documented as of this encounter
--- OUTSIDE RECORDS SUMMARY | 2020-03-22 21:45 | XMS REPORT | Summary of Care ---
:1994 Author Organization [facility] Address [address] [place] [address] Care Team Providers Name Role Phone Zackery Field MD Primary Care Provider Reason for Visit Reason Comments Assessment Encounter Details Date Type Department Care Team Description 03/02/2020 Telephone [facility] Women's Georgie Field MD Assessment Healthcare- [address], [address] [place] [address] [place] [address] [phone] Allergies Active Allergy Reactions Severity Noted Date Comments Adhesive Hives Medium 10/22/2016 Pertussin Am Swelling 02/15/2019 documented as of this encounter (statuses as of 03/02/2020) Medications Medication Sig Dispensed Refills Start Date End Date Status acetaminophen (TYLENOL Take by mouth. 0 Active ORAL) PNV 440-sroh-vcnvrq Take 1 30 capsule 8 03/02/2020 Active [...] Date Type Specialty Care Team Description 03/02/2020 Glazier Helper Visit Phlebotomy Georgie Field MD [address] [place] [address] [place] [address] [phone] 2, Adc Lab Health Maintenance Due Date Last Done Comments [...] on patient's age to complete this to [facility] documented as of this encounter Results Not on filedocumented in this encounter Insurance Payer Benefit Plan Subscriber ID Effective Phone Address Typ e / Group Dates TMHP MEDICAID OF xxxxxxxxx 2020-Prese [phone] [address] dicaid [place] [address] [place] [address] [facility] xxxxxxxxx 2020-Prese [phone] [address] Medicaid WOMEN [address] [place] [address] documented as of this encounter
--- OUTSIDE RECORDS SUMMARY | 2020-03-22 21:45 | XMS REPORT | Summary of Care ---
:1994 Author Organization [facility] Address [address] [place] [address] Care Team Providers Name Role Phone Zackery Field MD Primary Care Provider Reason for Visit Reason Comments Initial Visit Encounter Details Date Type Department Care Team Description 03/02/2020 Telemedicine Visit [facility] Women's Georgie Field Cramping [facility]- complicating [address] , [address], HOSPITAL DRMily antepartum (Primary [address]) [place] [phone] Allergies Active Allergy Reactions Severity Noted Date Comments Adhesive Hives Medium 10/22/2016 Pertussin Am Swelling 02/15/2019 documented as of this encounter (statuses as of 03/02/2020) Medications Medication Sig Dispensed Refills Start Date End Date Status acetaminophen Take by 0 Active (TYLENOL ORAL) mouth. PNV Take 1 30 capsule 8 03/02/2020 Active 353-miwl-agznfa TAB-CAP/M2 1-dss-dha (VITAFOL by mouth FE+, WITH [...] acetaminophen (TYLENOL ORAL) Take by mouth. PNV 567-qspo-ldcaps 1-dss-dha (VITAFOL FE+, WITH DOCUSATE,) 90 mg [...] ; Standing - URINALYSIS; Future - PNV 149-mijk-bmuxaf 1-dss-dha (VITAFOL FE+, WITH DOCUSATE,) 90 mg [...] (AVS ) documentation will be available through [employer] for this encounter. Georgie Field MD 03/02/2020 9:24 AM documented in this encounter Plan of Treatment Date Type Specialty Care Team Description 03/03/2020 Quill Layer Visit Phlebotomy 2, Adc Lab 03/07/2020 Initial Visit [facility]ell[facility] Ryan Bob, CNP [address] [place], [place] [address] [phone] Name Type Priority Associated Diagnoses Order S [...] Type Group TMHP MEDICAID OF xxxxxxxxx 2020-Present [phone] [address] Medicaid [place] [id number] [place] [address] documented as of this encounter
--- OUTSIDE RECORDS SUMMARY | 2020-03-22 21:46 | XMS REPORT | Summary of Care ---
:1994 Author Organization [facility] Address [address] [place] [address] Care Team Providers Name Role Phone Zackery Field MD Primary Care Provider Reason for Visit Reason Comments LAB Encounter Details Date Type Department Care Team Description 03/06/2020 Head Of Geography Visit [facility] Georgie Field MD [address] [place] [address] [address] [place] [address] Cramping Professional Office 2, [facility] Lab complicating Building Phlebotomy pregnanc y, Lab antepartum Professional Office Building [address] [facility] , [address] [place] [address] Allergies Active Allergy Reactions Severity Noted Date Comments Adhesive Hives Medium 10/22/2016 Pertussin Am Swelling 02/15/2019 documented as of this encounter (statuses as of 03/06/2020) Medications Medication Sig Dispensed Refills Start Date End Date Status acetaminophen (TYLENOL Take by mouth. 0 Active ORAL) PNV 983-wapw-yjlhjr Take 1 30 capsule 8 03/02/2020 Active 1-dss-dha (VITAFOL FE+, TAB-CAP/M2 by WITH DOCUSATE,) 90 mg mouth daily. iron-1 mg -50 mg-200 mg CapIndications: Cramping complicating , antepartum documented as of this encounter (statuses as of 03/06/2020) Active Problems Problem Noted Date Previous section complicating , ante condition or 02/20/2019 complication Rh negative state in antepartum period 09/02/2018 Morbid obesity 10/31/2017 BMI 45.0-49.9, adult 10/31/2017 Need for HPV vaccination 10/31/2017 History of PCOS 06/07/2016 Comments Yes documented as of this encounter (statuses as of 03/06/2020) Resolved Problems Problem Noted Date Resolved Date [...] as of this encounter (statuses as of 03/06/2020) Immunizations Name Administration Dates Next Due HPV9 [...] filedocumented in this encounter Plan of Treatment Health Maintenance Due Date Last Done Comments [...] on patient's age to complete this to [facility] documented as of this encounter Results Not on filedocumented in this encounter Visit Diagnoses Diagnosis Cramping complicating , antepar mei documented in this encounter Insurance Payer Benefit Plan / Subscriber ID Effective Dates Phone Addre ss Type Group [facility] MEDICAID OF xxxxxxxxx 2020-Present [phone] [address] Medicaid [place] [id number] [place] [phone] documented as of this encounter
--- OUTSIDE RECORDS SUMMARY | 2020-03-22 21:46 | XMS REPORT | Summary of Care ---
:1994 Author Organization [facility] Address [address] [place] [address] Care Team Providers Name Role Phone Zackery Field MD Primary Care Provider Reason for Visit Reason Comments Erroneous encounter-disregard Encounter Details Date Type Department Care Team Description 03/03/2020 Telephone [facility] Women's Georgie Field MD Erroneous Healthcare- [address] encounter-disregard [address] [place] [address], [facility] [address] [place], [place] [phone] Allergies Active Allergy Reactions Severity Noted Date Comments Adhesive Hives Medium 10/22/2016 Pertussin Am Swelling 02/15/2019 documented as of this encounter (statuses as of 03/03/2020) Medications Medication Sig Dispensed Refills Start Date End Date Status acetaminophen (TYLENOL Take by mouth. 0 Active ORAL) PNV 921-jrxy-slqzqk Take 1 30 capsule 8 03/02/2020 Active 1-dss-dha (VITAFOL FE+, TAB-CAP/M2 by WITH DOCUSATE,) 90 mg mouth daily. iron-1 mg -50 mg-200 mg CapIndications: Cramping complicating , antepartum documented as of this encounter (statuses as of 03/03/2020) Active Problems Problem Noted Date Previous section complicating , ante condition or 02/20/2019 complication Rh negative state in antepartum period 09/02/2018 Morbid obesity 10/31/2017 BMI 45.0-49.9, adult 10/31/2017 Need for HPV vaccination 10/31/2017 History of PCOS 06/07/2016 Comments Yes documented as of this encounter (statuses as of 03/03/2020) Resolved Problems Problem Noted Date Resolved Date [...] as of this encounter (statuses as of 03/03/2020) Immunizations Name Administration Dates Next Due HPV9 [...] Treatment Date Type Specialty Care Team Description 03/06/2020 Software Product Manager Visit Phlebotomy Georgie Field MD [address] [place] [address] [place] [address] [phone] 2, Adc Lab Health Maintenance Due Date [...] on patient's age to complete this to [facility] documented as of this encounter Results Not on filedocumented in this encounter Insurance Payer Benefit Plan Subscriber ID Effective Phone Address Typ e / Group Dates TMHP MEDICAID OF xxxxxxxxx 2020-Prese [phone] [address] dicaid [place] nt [address] [place] [address] [facility] HTW-RMCHP xxxxxxxxx 2020-Prese [phone] [address] Medicaid WOMEN [address] [place] [address] documented as of this encounter
--- OUTSIDE RECORDS SUMMARY | 2020-03-22 21:46 | XMS REPORT | Summary of Care ---
:1994 Author Organization [facility] Address [address] [place] [address] Care Team Providers Name Role Phone Zackery Field MD Primary Care Provider Reason for Visit Reason Comments LAB Encounter Details Date Type Department Care Team Description 03/02/2020 Human Resources Professional Visit [facility] Georgie Field MD [address] [place] [address] [address] [place] [address] Cramping complicating , antepar mei; Professional Office 2, [employer] Lab Dysuria Building Phlebotomy Lab Professional Office Building [address] [place] [address] , [address] [place] [address] Allergies Active Allergy Reactions Severity Noted Date Comments Adhesive Hives Medium 10/22/2016 Pertussin Am Swelling 02/15/2019 documented as of this encounter (statuses as of 03/02/2020) Medications Medication Sig Dispensed Refills Start Date End Date Status acetaminophen (TYLENOL Take by mouth. 0 Active ORAL) PNV 594-ztqm-whjfpf Take 1 30 capsule 8 03/02/2020 Active [...] Date Type Specialty Care Team Description 03/06/2020 Human Resources Professional Visit Phlebotomy Georgie Field MD [address] [place] [address] [place] [address] 2, Adc Lab Name Type Priority Associated Diagnoses Order S chedule CBC WITH DIFFERENTIAL LAB Routine Cramping complicati ng Ordered: 03/02/2020 , antepartum Health Maintenance Due Date Last Done Comments [...] on patient's age to complete this to [facility] documented as of this encounter Results Not on filedocumented in this encounter Visit Diagnoses Diagnosis Cramping complicating , antepar mei Dysuria documented in this encounter Insurance Payer Benefit Plan / Subscriber ID Effective Dates Phone Addre ss Type Group TMHP MEDICAID OF xxxxxxxxx 2020-Present [phone] [address] [place] [id number] [place] [phone] documented as of this encounter
--- OUTSIDE RECORDS SUMMARY | 2020-03-22 21:47 | XMS REPORT | Summary of Care ---
:1994 Author Organization [facility] Address [address] [place] [address] Care Team Providers Name Role Phone Zackery Field MD Primary Care Provider Encounter Details Date Type Department Care Team Description 03/06/2020 Orders Only [facility] Doctor Unassigned, No [address] [facility] [place] [address] [address] [place] [id number] Allergies Active Allergy Reactions Severity Noted Date Comments Adhesive Hives Medium 10/22/2016 Pertussin Am Swelling 02/15/2019 documented as of this encounter (statuses as of 03/08/2020) Medications Medication Sig Dispensed Refills Start Date End Date Status acetaminophen (TYLENOL Take by mouth. 0 Active ORAL) PNV 131-wdft-yqptee Take 1 30 capsule 8 03/02/2020 Active 1-dss-dha (VITAFOL FE+, TAB-CAP/M2 by WITH DOCUSATE,) 90 mg mouth daily. iron-1 mg -50 mg-200 mg CapIndications: Cramping complicating , antepartum documented as of this encounter (statuses as of 03/08/2020) Active Problems Problem Noted Date Previous section complicating , ante condition or 02/20/2019 complication Rh negative state in antepartum period 09/02/2018 Morbid obesity 10/31/2017 BMI 45.0-49.9, adult 10/31/2017 Need for HPV vaccination 10/31/2017 History of PCOS 06/07/2016 Comments Yes documented as of this encounter (statuses as of 03/08/2020) Resolved Problems Problem Noted Date Resolved Date [...] as of this encounter (statuses as of 03/08/2020) Immunizations Name Administration Dates Next Due HPV9 [...] Treatment Date Type Specialty Care Team Description 04/18/2020 Routine Obstetrics & Field, Georgie Vizcarra MD Visit Gynecology [address] [place] [address] [address] [place] [address] [phone] Health Maintenance Due Date Last Done Comments [...] on patient's age to complete this to [facility] documented as of this encounter Procedures Procedure Name Priority Date/Time Associated Diagnosis Comme nts AGREEMENTS AUTHORIZATIONS Routine 03/06/2020 12:01 AM AND IRREVOCABLE CDT ASSIGNMENTS (FORM 2000) documented in this encounter Results Not on filedocumented in this encounter Insurance Payer Benefit Plan Subscriber ID Effective Phone Address Typ e / Group Dates TMHP MEDICAID OF xxxxxxxxx 2020-Prese [phone] [address] Me dicaid [place] [address] [place] [address] [facility] 2020-Prese [phone] [address] Medicaid WOMEN [address] [place] [address] documented as of this encounter
--- OUTSIDE RECORDS SUMMARY | 2020-03-22 21:47 | XMS REPORT | Summary of Care ---
:[address] [facility] - [facility] Address [address] [place] [address] Care Team Providers Name Role Phone Zackery Field MD Primary Care Provider Reason for Visit Reason Comments Rx Concern/Question Encounter Details Date Type Department Care Team Description 03/14/2020 Telephone [facility] Women's Georgie Field MD Rx Concern/Question Healthcare- [address] [place] [address] [facility], [facility] [address] [place] [id number] [place] [address] [phone] Allergies Active Allergy Reactions Severity Noted Date Comments Adhesive Hives Medium 10/22/2016 Pertussin Am Swelling 02/15/2019 documented as of this encounter (statuses as of 03/14/2020) Medications Medication Sig Dispensed Refills Start Date End Date Status acetaminophen Take by mouth. 0 Active (TYLENOL ORAL) PNV 848-vags-wdsbag Take 1 30 capsule 8 03/02/2020 Active 1-dss-dha (VITAFOL TAB-CAP/M2 by FE+, WITH DOCUSATE,) mouth daily. 90 mg iron-1 mg -50 mg-200 mg CapIndications: Cramping complicating , antepartum promethazine 6.25 Take 20 mL by 2400 mL 0 03/14/2020 020 Active mg/5 mL solution mouth every 6 (six) hours as needed for Nausea and Vomiting (N/V) for up to 30 days. documented as of this encounter (statuses as of 03/14/2020) Active Problems Problem Noted Date Previous section complicating , ante condition or 02/20/2019 complication Rh negative state in antepartum period 09/02/2018 Morbid obesity 10/31/2017 BMI 45.0-49.9, adult 10/31/2017 Need for HPV vaccination 10/31/2017 History of PCOS 06/07/2016 Comments Yes documented as of this encounter (statuses as of 03/14/2020) Resolved Problems Problem Noted Date Resolved Date [...] as of this encounter (statuses as of 03/14/2020) Immunizations Name Administration Dates Next Due HPV9 [...] & Field, Georgie Vizcarra MD Visit Gynecology [address] [place] [address] [address]. [address] [place], [place] [address] [phone] Health Maintenance Due Date Last Done Comments [...] OF xxxxxxxxx 2020-Prese [phone] [address] dicaid [place] [address] [place] [address] [facility] 2020-Prese [phone] [address] Medicaid WOMEN [address] [place] [address] documented as of this encounter
--- OUTSIDE RECORDS SUMMARY | 2020-03-22 21:47 | XMS REPORT | Summary of Care ---
:1995 Author Organization [facility] Address [address] [place] [address] Care Team Providers Name Role Phone Zackery Field MD Primary Care Provider Reason for Visit Reason Comments Results Encounter Details Date Type Department Care Team Description 03/06/[address] [facility] Women's Georgie Field MD Results Healthcare- [address], [address] [place] [address] [place] [address] [phone] Allergies Active Allergy Reactions Severity Noted Date Comments Adhesive Hives Medium 10/22/2016 Pertussin Am Swelling 02/15/2019 documented as of this encounter (statuses as of 03/06/2020) Medications Medication Sig Dispensed Refills Start Date End Date Status acetaminophen (TYLENOL Take by mouth. 0 Active ORAL) PNV 729-xccg-efjjid Take 1 30 capsule 8 03/02/2020 Active [...] on patient's age to complete this to [facility] documented as of this encounter Results Not on filedocumented in this encounter Insurance Payer Benefit Plan Subscriber ID Effective Phone Address Typ e / Group Dates [facility] MEDICAID OF xxxxxxxxx 2020-Prese [phone] [address] [facility] [address] [place] [address] PENDING SALE TO [facility] xxxxxxxxx 2020-Prese [phone] [address] Medicaid WOMEN [place] [address] [place] [address] documented as of this encounter
--- OUTSIDE RECORDS SUMMARY | 2020-03-22 21:47 | XMS REPORT | Summary of Care ---
:1995 Author Organization [facility] Address [address] [place] [address] Care Team Providers Name Role Phone Zackery Field MD Primary Care Provider Reason for Visit Reason Comments Results Appointment Encounter Details Date Type Department Care Team Description 03/06/2020 Telephone [facility] Women's Georgie Field MD Results; Appointment Healthcare- [address] [place] [address] [place] [address] [phone] Allergies Active Allergy Reactions Severity Noted Date Comments Adhesive Hives Medium 10/22/2016 Pertussin Am Swelling 02/15/2019 documented as of this encounter (statuses as of 03/07/2020) Medications Medication Sig Dispensed Refills Start Date End Date Status acetaminophen (TYLENOL Take by mouth. 0 Active ORAL) PNV 145-hogl-aryydo Take 1 30 capsule 8 03/02/2020 Active 1-dss-dha (VITAFOL FE+, TAB-CAP/M2 by WITH DOCUSATE,) 90 mg mouth daily. iron-1 mg -50 mg-200 mg CapIndications: Cramping complicating , antepartum documented as of this encounter (statuses as of 03/07/2020) Active Problems Problem Noted Date Previous section complicating , ante condition or 02/20/2019 complication Rh negative state in antepartum period 09/02/2018 Morbid obesity 10/31/2017 BMI 45.0-49.9, adult 10/31/2017 Need for HPV vaccination 10/31/2017 History of PCOS 06/07/2016 Comments Yes documented as of this encounter (statuses as of 03/07/2020) Resolved Problems Problem Noted Date Resolved Date [...] as of this encounter (statuses as of 03/07/2020) Immunizations Name Administration Dates Next Due HPV9 [...] & Field, Georgie Vizcarra MD Visit Gynecology [address] [place] [address] [address] [place], [place] [address] [phone] Health Maintenance Due Date Last Done Comments [...] 2020-Prese [phone] [address] [place] dicaid [place] [address] [place] [address] [facility] xxxxxxxxx 2020-Prese [phone] [address] Medicaid WOMEN [address] [place] [address] documented as of this encounter
--- OUTSIDE RECORDS SUMMARY | 2020-03-22 21:48 | XMS REPORT | Summary of Care ---
:1995 Author Organization [facility] Address [address] [place] [address] Care Team Providers Name Role Phone Zackery Field MD Primary Care Provider Reason for Visit Reason Comments Assessment Encounter Details Date Type Department Care Team Description 03/21/2020 Telephone [facility] Women's Georgie Field MD Assessment Healthcare- [address], [address] [place] [address] [place] [address] [phone] Allergies Active Allergy Reactions Severity Noted Date Comments Adhesive Hives Medium 10/22/2016 Pertussin Am Swelling 02/15/2019 documented as of this encounter (statuses as of 03/21/2020) Medications Medication Sig Dispensed Refills Start Date End Date Status acetaminophen Take by mouth. 0 Active (TYLENOL ORAL) PNV 362-qquo-glfwwo Take 1 30 capsule 8 03/02/2020 Active [...] as of this encounter (statuses as of 03/21/2020) Active Problems Problem Noted Date Previous section complicating , ante condition or 02/20/2019 complication Rh negative state in antepartum period 09/02/2018 Morbid obesity 10/31/2017 BMI 45.0-49.9, adult 10/31/2017 Need for HPV vaccination 10/31/2017 History of PCOS 06/07/2016 Comments Yes documented as of this encounter (statuses as of 03/21/2020) Resolved Problems Problem Noted Date Resolved Date [...] as of this encounter (statuses as of 03/21/2020) Immunizations Name Administration Dates Next Due HPV9 [...] & Field, Georgie Vizcarra MD Visit Gynecology [address] [place] [address] [address] [place] [address] [phone] Health Maintenance Due Date Last Done Comments [...] on patient's age to complete this to [facility] documented as of this encounter Results Not on filedocumented in this encounter Insurance Payer Benefit Plan Subscriber ID Effective Phone Address Typ e / Group Dates [facility] MEDICAID OF xxxxxxxxx 2020-Prese [phone] [address] Me dicaid [place] nt [address] [place] [address] [facility] 2020-Prese [phone] [address] Medicaid WOMEN [address] [place] [address] documented as of this encounter
[2020-03-23 00:08] LABS: Absolute Lymphocytes (CBC) 3.4 K/uL (0.7-4.9); Basophils % 0.5 % (0-1.3); Hematocrit 43.7 % (36.0-45.0); Lymphocytes % 31.2 % (15.3-44.8); MPV 8.8 fL (7.6-11.3); RBC Red Blood Cell Count 5.06 M/uL (3.86-4.86)
[2020-03-23 00:43] LABS: Potassium 3.5 mmol/L (3.5-5.1)
[2020-03-23 01:01] LABS: Blood Morphology Comment NOT SEEN (NOT SEEN); Platelet Estimate ADEQ; Urine White Blood Cell Casts OK
--- NOTE | 2020-03-23 02:01 | ER ---
Nurse's Notes [facility] Name: Sis Arroyo Age: 25 yrs Sex: Female : 1995 Arrival Date: 03/22/2020 Time: 21:45 Bed 6 Private MD: Diagnosis: Threatened Presentation: 03/22 22:10 Chief complaint: Patient states: I am between 6-8 weeks . I saw my OB 2 weeks bb ago and he confirmed it with a blood test. I am RH- and I need to get a Rhogam shot. Coronavirus screen: Proceed with normal triage. Ebola Screen: Patient negative for fever greater than or equal to 101.5 degrees Fahrenheit, and additional compatible Ebola Virus Disease symptoms Patient denies exposure to infectious person. Patient denies travel to an Ebola-affected area in the 21 days before illness onset. 22:10 Method Of Arrival: Ambulatory bb 22:12 Chief complaint: Patient states: I started having abdominal cramping and noticed blood bb when I went to the bathroom. It was on the toilet paper when I wiped. It is usually about this time I get the Rhogam shot since I am RH-. Initial Sepsis Screen: Does the patient meet any 2 criteria? No. Patient's initial sepsis screen is negative. Does the patient have a suspected source of infection? No. Patient's initial sepsis screen is negative. Risk Assessment: Do you want to hurt yourself or someone else? Patient reports no desire to harm self or others. Onset of symptoms was March 22, 2020. 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 - Social history:: Smoking status: Patient denies any tobacco usage or history of. Patient/guardian denies using alcohol, street drugs. Screenin/23 00:30 Abuse screen: Denies threats or abuse. Denies injuries from another. Nutritional rr5 screening: No deficits noted. Tuberculosis screening: No symptoms or risk factors identified. Fall Risk None identified. Total Starks Fall Scale indicates No Risk (0-24 pts). Assessment: 03/22 23:00 General: Appears in no apparent distress. comfortable, Behavior is calm, cooperative, rr5 appropriate for age. 23:00 Pain: Complains of pain in abdomen Pain currently is 3 out of 10 on a pain scale. rr5 Quality of pain is described as aching, Pain began gradually, Is intermittent. Neuro: Level of Consciousness is awake, alert, obeys commands, Oriented to person, place, time, situation, Appropriate for age. Cardiovascular: Capillary refill < 3 seconds Patient's skin is warm and dry. Respiratory: Airway is patent Respiratory effort is even, unlabored, Respiratory pattern is regular, symmetrical. GI: Abdomen is round non-distended, obese, Reports lower abdominal pain. : Reports vaginal bleeding that is I am and RH (-). EENT: No signs and/or symptoms were reported regarding the EENT system. Derm: Skin is intact, is healthy with good turgor, Skin temperature is warm. Musculoskeletal: Circulation, motion, and sensation intact. Capillary refill < 3 seconds. 03/23 00:20 Reassessment: Patient appears in no apparent distress at this time. No changes from rr5 previously documented assessment. Patient is alert, oriented x 3, equal unlabored respirations, skin warm/dry/pink. awaiting for results. 01:38 Reassessment: Patient appears in no apparent distress at this time. Patient is alert, rr5 oriented x 3, equal unlabored respirations, skin warm/dry/pink. OB ultrasound at bedside. 01:42 Reassessment: Ultrasound at bedside. lp1 02:20 Reassessment: Patient appears in no apparent distress at this time. Patient is alert, rr5 oriented x 3, equal unlabored respirations, skin warm/dry/pink. discharge instruction given and explained without complaints made. Vital Signs: 03/22 22:08 BP 123 / 91; Pulse 84; Resp 16; Temp 98.9(O); Pulse Ox 99% on R/A; Weight 108.86 kg; bb Height 5 ft. 1 in. (154.94 cm); Pain 3/; 03/23 00:30 BP 121 / 85; Pulse 80; Resp 17; Pulse Ox 99% ; rr5 01:30 BP 133 / 70; Pulse 85; Resp 19; Pulse Ox 100% ; rr5 02:15 BP 119 / 80; Pulse 70; Resp 16; Temp 97.8; Pulse Ox 98% ; rr5 03/22 22:08 Body Mass Index 45.35 (108.86 kg, 154.94 cm) ED Course: 03/22 21:45 Patient arrived in ED. ag3 22:10 Mariano Shelton PA is PHCP. cp 22:10 David Cummings MD is Attending Physician. cp 22:13 Triage completed. bb 22:15 Arm band placed on right wrist. bb 23:19 Víctor Hicks RN is Primary Nurse. rr5 23:40 Missed attempt(s): 24 gauge in right forearm. Bleeding controlled, band aid applied, rr5 catheter tip intact. 03/23 00:30 Patient has correct armband on for positive identification. Placed in gown. Bed in low rr5 position. Call light in reach. Pulse ox on. NIBP on. 01:50 US Transvaginal Ob In Process Unspecified. EDMS 02:20 No provider procedures requiring assistance completed. Patient did not have IV access rr5 during this emergency room visit. Administered Medications: 02:00 Drug: RhoGAM (Human) 300 mcg Route: IM; Site: right deltoid; rr5 02:22 Follow up: Response: No adverse reaction rr5 Point of Care Testing: Urine : 03/22 22:30 hCG Reading: Positive; Control Reading: Positive; rr5 Outcome: 03/23 02:01 Discharge ordered by MD. cp 02:20 Discharged to home ambulatory. rr5 02:20 Condition: stable 02:20 Discharge instructions given to patient, Instructed on discharge instructions, follow up and referral plans. medication usage, Demonstrated understanding of instructions, follow-up care, medications, Prescriptions given X 1. 02:22 Patient left the ED. rr5 Signatures: Dispatcher [employer] EDMS Amina Owen RN RN bb Deneen Wakefield RN RN lp1 Mariano Shelton PA PA Shruthi Gramajo [facility] Víctor Hicks, MARIMAR RN rr5
--- NOTE | 2020-03-23 02:01 | EDPHYS ---
Physician Documentation [facility] Name: Sis Arroyo Age: 25 yrs Sex: Female : 1995 Arrival Date: 03/22/2020 Time: 21:45 Bed 6 Private MD: ED Physician David Cummings HPI: 03/22 23:30 This 25 yrs old Female presents to ER via Ambulatory with complaints of cp Vaginal Bleeding, + Preg <12wks. 23:30 The patient presents to the emergency department with vaginal bleeding, described as cp spotting. Associated signs and symptoms: Pertinent negatives: dysuria, fever. 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 - Social history:: Smoking status: Patient denies any tobacco usage or history of. Patient/guardian denies using alcohol, street drugs. ROS: 23:45 Constitutional: Negative for body aches, chills, fever. cp 23:45 Cardiovascular: Negative for chest pain. cp 23:45 Respiratory: Negative for cough, shortness of breath. 23:45 Abdomen/GI: Positive for abdominal cramps, Negative for nausea, vomiting, and diarrhea. 23:45 Back: Negative for pain at rest, pain with movement. 23:45 : Positive for vaginal bleeding, Negative for urinary symptoms. 23:45 Neuro: Negative for headache, weakness. 23:45 All other systems are negative. Exam: 23:50 Constitutional: The patient appears in no acute distress, alert, awake, comfortable, cp non-toxic, well developed, well nourished. 23:50 Head/Face: Normocephalic, atraumatic. cp 23:50 Eyes: Periorbital structures: appear normal, Conjunctiva: normal, no exudate, no injection, Lids and lashes: appear normal, bilaterally. 23:50 ENT: External ear(s): are unremarkable, Nose: is normal, Mouth: Lips: moist, Oral mucosa: moist, Posterior pharynx: Airway: no evidence of obstruction, patent. 23:50 Chest/axilla: Inspection: normal. 23:50 Cardiovascular: Rate: normal. 23:50 Respiratory: the patient does not display signs of respiratory distress, Respirations: normal, no use of accessory muscles, labored breathing, is not present. 23:50 Abdomen/GI: Inspection: abdomen appears normal, Bowel sounds: active, all quadrants, Palpation: soft, in all quadrants, nontender, in all quadrants, voluntary guarding, is not appreciated, involuntary guarding, is not appreciated. 23:50 Back: pain, is absent. Vital Signs: 22:08 BP 123 / 91; Pulse 84; Resp 16; Temp 98.9(O); Pulse Ox 99% on R/A; Weight 108.86 kg; bb Height 5 ft. 1 in. (154.94 cm); Pain 3/10; 03/23 00:30 BP 121 / 85; Pulse 80; Resp 17; Pulse Ox 99% ; rr5 01:30 BP 133 / 70; Pulse 85; Resp 19; Pulse Ox 100% ; rr5 02:15 BP 119 / 80; Pulse 70; Resp 16; Temp 97.8; Pulse Ox 98% ; rr5 03/22 22:08 Body Mass Index 45.35 (108.86 kg, 154.94 cm) bb MDM: 03/22 23:19 Patient medically screened. cp 03/23 02:00 Data reviewed: vital signs, nurses notes, lab test result(s), radiologic studies, cp ultrasound. 02:00 Counseling: I had a detailed discussion with the patient and/or guardian regarding: the cp historical points, exam findings, and any diagnostic results supporting the discharge/admit diagnosis, lab results, radiology results, the need for outpatient follow up, an OB/Gyne specialist, to return to the emergency department if symptoms worsen or persist or if there are any questions or concerns that arise at home. ED course: phone report from tech: 7 week and 1 day IUP with heart rate of 130. Will discharge patient to home with pelvic rest instructions and to f/u with primary OB. 03/22 23:31 Order name: Quantitative Hcg; Complete Time: 00:46 cp 03/23 00:46 Interpretation: HCGQ [id number]; Reviewed. 03/22 23:31 Order name: Abo/rh Typing 03/22 23:31 Order name: Basic Metabolic Panel; Complete Time: 00:46 cp 03/22 23:31 Order name: CBC with Diff 03/23 00:43 Interpretation: Normal except: WBC 11.0; RBC 5.06; MCV 86.3. 03/22 23:59 Order name: Rh Typing [facility] 03/22 23:59 Order name: Antibody Screen [facility] 03/22 23:59 Order name: Fetalscreen [facility] 03/22 23:59 Order name: Cord Rh type [facility] 03/22 23:59 Order name: Rhogam [facility] 03/23 00:11 Order name: CBC Smear Scan [facility] 03/23 00:46 Order name: US Transvaginal Ob 03/23 02:09 Order name: Urine Dipstick--Ancillary (enter results) [facility] 03/23 02:09 Order name: Urine --Ancillary (enter results) [facility] 03/22 23:31 Order name: Urine Test (obtain specimen); Complete Time: 23:56 03/22 23:31 Order name: Labs collected and sent; Complete Time: 23:56 03/22 23:31 Order name: NPO; Complete Time: 23:56 03/22 23:31 Order name: Urine Dipstick-Ancillary (obtain specimen); Complete Time: 23:56 cp Administered Medications: 02:00 Drug: RhoGAM (Human) 300 mcg Route: IM; Site: right deltoid; rr5 02:22 Follow up: Response: No adverse reaction rr5 Point of Care Testing: Urine : 03/22 22:30 hCG Reading: Positive; Control Reading: Positive; rr5 Disposition: 03/23 02:25 Chart complete. cp 11:20 Co-signature as Attending Physician, David Cummings MD I agree with the assessment and tw4 plan of care. Disposition: 03/23/20 02:01 Discharged to Home. Impression: Threatened . - Condition is Stable. - Discharge Instructions: Threatened Miscarriage, Vaginal Bleeding During , First Trimester, Pelvic Rest. - Prescriptions for Vitamin 27- 0.8 mg Oral Tablet - take 1 tablet by ORAL route once daily; 60 tablet. - Medication Reconciliation Form, Thank You Letter, Antibiotic Education, Prescription Opioid Use form. - Follow up: Private Physician; When: 2 - 3 days; Reason: Recheck today's complaints. - Problem is new. - Symptoms have improved. Signatures: Dispatcher [employer] Amina Olivera, RN RN Mariano Andrews PA PA cp Wadley, Terrence, MD MD tw4 Víctor Hicks RN RN rr5 Corrections: (The following items were deleted from the chart) 02:16 03/22 23:31 IV Saline Lock ordered. cp rr5 03/23 02:22 02:01 03/23/2020 02:01 Discharged to Home. Impression: Threatened . Condition rr5 is Stable. Forms are Medication Reconciliation Form, Thank You Letter, Antibiotic Education, Prescription Opioid Use. Follow up: Private Physician; When: 2 - 3 days; Reason: Recheck today's complaints. Problem is new. Symptoms have improved. cp
[2020-03-23 02:37] VITALS: BP 119/80; TEMP 97.8; O2SAT 98
[2020-03-23 02:49] LABS: Urine Blood NEGATIVE (NEG); Urine Glucose NEGATIVE (NEG); Urine Protein NEGATIVE (NEG); Urine Specific Gravity >1.030 (1.005-1.030)
--- NOTE | 2020-03-23 10:57 | RAD REPORT ---
EXAM DESCRIPTION: US - Transvaginal OB - 03/23/2020 1:49 am CLINICAL HISTORY: vaginal bleeding;Abd cramping, COMPARISON: Transvaginal OB dated 03/18/2016 FINDINGS: A single gestational sac is seen within the uterus. The shape of the sac is within normal limits for gestational age. Within the sac is a single pole with crown-rump length of 10 mm, co rrelating to estimated gestational age of 7 weeks 1 day. Estimated date of delivery is 11/08/2020. Heart rate is 127 BPM. The placenta is not yet developed due to early gestational age. The maternal adnexa and left ovary are within normal limits. Normal Doppler blood flow was demonstrat ed to the left ovary. The right ovary was obscured by bowel gas. IMPRESSION: Single live early intrauterine gestation with estimated gestational age of 7 weeks 1 day , MIGUEL 11/08/2020.
== END 2020-03-23 02:22 | disposition home or self-care (01) ==
LOC: ER 21:42
DX: O20.0 Threatened abortion (principal); Z3A.01 Less than 8 weeks gestation of pregnancy; Z88.0 Allergy status to penicillin; Z88.7 Allergy status to serum and vaccine
CPT/HCPCS: 36415; 76817; 80048; 81003; 81025; 84702; 85025; 85461; 86850; 86900; 86901; 96372; 99284; J2790

== ENCOUNTER 2021-06-09 01:03 | Emergency (ER) | payer OTHER ==
--- OUTSIDE RECORDS SUMMARY | 2021-06-09 01:12 | XMS REPORT | Continuity of Care Document ---
:1995 Author Organization [facility] t Address [address] [place] [address] Care Team Providers Name Role Phone Zackery Field MD Attending Clinician Doctor Unassigned, Name Attending Clinician Unavailable Ultrasound Attending Clinician Unavailable Lisa KRUSE Attending Clinician 2, Lab Attending Clinician Unavailable Payers Payer Name Policy Type Policy Number Effective Date Expiration Date S ource Problems This patient has no known problems. Allergies, Adverse Reactions, Alerts Allergy Allergy Status Severity Reaction(s) Onset Inactive Treating Comm ents Source Name Type Date Date Clinician No Known DA Active U 2019-12 [facility] [place] No Known DA Active U 2019-12 [facility] -[facility] Medications This patient has no known medications. Procedures This patient has no known procedures. Encounters Start End Encounter Admission Attending Care Care Encounter Source Date/Time Date/Time Type Type Clinicians Facility Department ID 2020-10-11 2020-10-11 Case Emir Georgie [facility] [id number] 00:00:00 00:00:00 Management [place] 350.1.13.10 [place] 4.2.7.2.686 Professio [phone] [address] 2020-10-11 2020-10-11 Orders Doctor PJ 1.2.840.114 [id number] 00:00:00 00:00:00 Only Unassigned, YASH 350.1.13.10 [facility] 4.2.7.2.686 [id number] 009 2020-09-13 2020-09-13 Orders Doctor PJ 1.2.840.114 [id number] 00:00:00 00:00:00 Only Unassigned, YASH 350.1.13.10 [facility] 4.2.7.2.686 [id number] 009 2020-08-24 2020-08-24 Routine Emir Georgie [facility] [id number] 12:35:45 13:50:15 [place] 350.1.13.10 Visit [place] 4.2.7.2.686 Professio [phone] [address] 2020-07-14 2020-07-14 Direct Support Specialist Ultrasound, [facility] 1.2.840.114 [id number] 09:06:31 10:21:31 Visit [facility] 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 MAINTENANCE 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 350.1.13.10 [facility] 4.2.7.2.686 MATERNAL [phone] & CHILD [address] [place] [address] 2020-06-30 2020-06-30 Routine Georgie Field [facility] 1.2.095.098 [id number] 13:10:39 14:01:12 [place] 350.1.13.10 Visit [place] 4.2.7.2.686 Professio [phone] [address] 2020-06-29 2020-06-29 Telephone Georgie Field [facility] 1.2.840.114 [id number] 00:00:00 00:00:00 [place] 350.1.13.10 [place] 4.2.7.2.686 Professio [phone] [address] 2020-06-27 2020-06-27 Orders Doctor OLIVA 1.2.840.114 [id number] 00:00:00 00:00:00 Only Unassigned, YASH 350.1.13.10 [facility] 4.2.7.2.686 [id number] 009 2020-06-15 2020-06-15 Case Georgie Field [facility] 1.2.461.180 [id number] 00:00:00 00:00:00 Management [place] 350.1.13.10 [place] 4.2.7.2.686 Professio [phone] [address] 2020-06-13 2020-06-13 Orders Doctor PJ 1.2.840.114 [id number] 00:00:00 00:00:00 Only Unassigned, YASH 350.1.13.10 [facility] 4.2.7.2.686 [id number] 009 2020-05-31 2020-05-31 Case Georgie Field [facility] 1.2.938.229 [id number] 00:00:00 00:00:00 Management [place] 350.1.13.10 [place] 4.2.7.2.686 Professio [id number] [address] 2020-05-31 2020-05-31 Case Georgie Field [facility] 1.2.789.620 [id number] 00:00:00 00:00:00 Management [place] 350.1.13.10 [place] 4.2.7.2.686 Professio [id number] [address] 2020-05-31 2020-05-31 Orders Doctor PJ 1.2.840.114 [id number] 00:00:00 00:00:00 Only Unassigned, YASH 350.1.13.10 [facility] 4.2.7.2.686 [id number] 009 2020-05-25 2020-05-25 Case Lisa [facility] 1.2.038.581 [id number] 00:00:00 00:00:00 Management Angelica [place] 350.1.13.10 [place] 4.2.7.2.686 Professio [phone] [address] 2020-05-23 2020-05-23 Case Lisa [facility] 1.2.049.266 [id number] 00:00:00 00:00:00 Management Angelica Santillan 350.1.13.10 [place] 4.2.7.2.686 Professio [phone] [address] 2020-05-22 2020-05-22 Routine Lisa [facility] [id number] 10:37:27 11:13:02 Angelica Santillan 350.1.13.10 Visit [place] 4.2.7.2.686 Professio [phone] [address] 2020-05-22 2020-05-22 Orders Doctor PJ 1.2.840.114 [id number] 00:00:00 00:00:00 Only Unassigned, YASH 350.1.13.10 [facility] 4.2.7.2.686 [id number] 009 2020-05-08 2020-05-08 Telephone Georgie Field [facility] 1.2.840.114 [id number] 00:00:00 00:00:00 [place] 350.1.13.10 [place] 4.2.7.2.686 Professio [id number] [address] 2020-05-05 2020-05-05 Telephone Emir [facility] 1.2.840.114 [id number] 00:00:00 00:00:00 [place] 350.1.13.10 [place] 4.2.7.2.686 Professio [phone] [address] 2020-05-05 2020-05-05 Orders Doctor PJ 1.2.840.114 [id number] 00:00:00 00:00:00 Only Unassigned, YASH 350.1.13.10 [facility] 4.2.7.2.686 [id number] 009 2020-05-03 2020-05-03 Telephone Georgie Field [facility] 1.2.840.114 [id number] 00:00:00 00:00:00 [place] 350.1.13.10 [place] 4.2.7.2.686 Professio [phone] [address] 2020-04-27 2020-04-27 Direct Support Specialist 2, Autumn Cortez [facility] 1.2.840.114 [id number] 13:29:16 13:44:16 [place] 350.1.13.10 [place] 4.2.7.2.686 Professio [phone] [address] 2020-04-27 2020-04-27 Routine Georgie Field [facility] 1.2.268.410 [id number] 12:31:12 13:22:57 [place] 350.1.13.10 Visit [place] 4.2.7.2.686 Professio [phone] [address] 2020-04-18 2020-04-18 Telemedici Georgie Field [facility] 1.2.840.114 [id number] 08:10:01 08:25:01 ne Visit [place] 350.1.13.10 [place] 4.2.7.2.686 Professio [phone] [address] 2020-03-23 2020-03-23 Telemedici Georgie Field [facility] 1.2.840.114 [id number] 14:03:38 15:16:55 ne Visit [place] 350.1.13.10 [place] 4.2.7.2.686 Professio [phone] [address] 2020-03-21 2020-03-21 Telephone Georgie Field [facility] 1.2.840.114 [id number] 00:00:00 00:00:00 [place] 350.1.13.10 [place] 4.2.7.2.686 Professio [phone] [address] 2020-03-14 2020-03-14 Telephone Georgie Field [facility] 1.2.840.114 [id number] 00:00:00 00:00:00 [place] 350.1.13.10 [place] 4.2.7.2.686 Professio [phone] [address] 2020-03-06 2020-03-06 Direct Support Specialist 2, [facility] Diego [facility] 1.2.840.114 [id number] 11:40:07 11:55:07 [place] 350.1.13.10 [place] 4.2.7.2.686 Professio [phone] [address] 2020-03-06 2020-03-06 Telephone Georgie Field [facility] 1.2.840.114 [id number] 00:00:00 00:00:00 [place] 350.1.13.10 [place] 4.2.7.2.686 Professio [phone] [facility] [address] [facility] [address] 2020-03-06 2020-03-06 Telephone Georgie Field KYJAN[facility] 1.2.840.114 [id number] 00:00:00 00:00:00 [place] 350.1.13.10 [place] 4.2.7.2.686 Professio [phone] [address] 2020-03-06 2020-03-06 Orders Doctor PJ 1.2.840.114 [id number] 00:00:00 00:00:00 Only Unassigned, YASH 350.1.13.10 [place] [facility] 4.2.7.2.686 [id number] 009 2020-03-03 2020-03-03 Telephone Georgie Field [facility] 1.2.840.114 [id number] 00:00:00 00:00:00 [place] 350.1.13.10 [place] 4.2.7.2.686 Professio [phone] [facility] 134 [facility] [address] 2020-03-02 2020-03-02 Direct Support Specialist 2, [facility] 1.2.840.114 [id number] 15:37:16 15:52:16 [place] 350.1.13.10 [place] 4.2.7.2.686 Professio [phone] [address] 2020-03-02 2020-03-02 Telephone Georgie Field [facility] 1.2.840.114 [id number] 00:00:00 00:00:00 [place] 350.1.13.10 [place] 4.2.7.2.686 Professio [phone] [address] Results Test Description Test Time Test Comments Results Result Comments Source HGB HCT 2020-11-04 07:16:00 Test Item Value Reference Range Interpretation Comme nts HEMOGLOBIN (test code = HGB) 9.5 g/dL 10.7-13.9 L HEMATOCRIT (test code = HCT) 29.1 % 32.1-42.1 L [id number] 12:03:00 Test Item Value Reference Range Interpretation Comments GLUCOSE (test code = GLUCBG) 50 mg/dl 60-110 L COVID 19 Asymptomatic IH [id number] 15:24:00 Test Item Value Reference Range Interpretation Comments COVID 19 NEGATIVE NEGATIVE This test has b een Asymptomatic IH AG authorize d only for the (test code = detection ofpro teins from COVNONPUIAG) SARS-CoV-2, not for any other viruses orpathogens. N egative results should be treated as presumptive andconfirmed wi th a molecular assay , if necessary for patientmanageme nt. Negative result s do not rule out COVID- 19 andshould not b e used as the sole basis for treatment orpat ient management deci sions, including infec tion controldecision s. Negative result s should be considered i n thecontext of a patient's recent exposure s, history and thepresence of clinical signs and symptoms consis tent withCOVID-19. T his test has not been FD A cleared or approved; th e test hasbeen authori ketty by FDA under an Emerge ncy Use Authorization(E UA) for use by laborato sanchez certified under the CLIA thatmeet the re quirements to perform mode rate, high or waivedcomple xity tests. This jono t is authorized for use at thePoint of Car e (POC), i.e., in patien t care settingsoperati under a CLIA Certificat e of Waiver, Certifi wendy ofCompliance, o r Certificate of Accreditation. This test is only authori ketty for the duration of thedeclaration that circumstances e xist justifying theauthorizatio n of emergency use o f in vitro diagnostic test sfor detection and/o r diagnosis of CO VID-19 under Iwopevv02 4(b)(1) of the Act, 21 U.S .C. 360bbb-3(b)(1), unless theauthorizatio n is terminated or r evoked sooner. AG HEPATITIS B [id number] 14:56:00 Test Item Value Reference Range Interpretation Comments AG HEPATITIS B SURFACE (test code NONREACTIVE NONREACTIVE = HBSAG) IS CONSENT FORM SIGNED FOR HIV TESTING? NAB HEPATITIS C [id number] 14:56:00 Test Item Value Reference Range Interpretation Comments AB HEPATITIS C (test code = NONREACTIVE NONREACTIVE HCVAB) SIGNAL TO CUTOFF (test code = 0.08 <0.80 N CUTOFF) IS CONSENT FORM SIGNED FOR HIV TESTING? NAB [id number] 14:56:00 Test Item Value Reference Range Interpretation Comments AB TREPONEMA (test code = TREPAB) NONREACTIVE NONREACTIVE IS CONSENT FORM SIGNED FOR HIV TESTING? NAB HIV 1 14:56:00 Test Item Value Reference Range Interpretation Comments AB HIV 1 2 (test NONREACTIVE NONREACTIVE Done by [facility] code = FCB22XL) 4th Gen HIV Ag/Ab Combo Screen IS CONSENT FORM SIGNED FOR HIV TESTING? NAG HEPATITIS B [id number] 14:23:00 Test Item Value Reference Range Interpretation Comments AG HEPATITIS B SURFACE (test code NONREACTIVE NONREACTIVE = HBSAG) IS CONSENT FORM SIGNED FOR HIV TESTING? NAB HEPATITIS C [id number] 14:23:00 Test Item Value Reference Range Interpretation Comments AB HEPATITIS C (test code = HCVAB) NONREACTIVE SIGNAL TO CUTOFF (test code = CUTOFF) <0.80 IS CONSENT FORM SIGNED FOR HIV TESTING? NAB [id number] 14:23:00 Test Item Value Reference Range Interpretation Comments AB TREPONEMA (test code = TREPAB) NONREACTIVE NONREACTIVE IS CONSENT FORM SIGNED FOR HIV TESTING? NAB HIV 1 14:23:00 Test Item Value Reference Range Interpretation Comments AB HIV 1 2 (test code = YJP61IF) NONREACTIVE IS CONSENT FORM SIGNED FOR HIV TESTING? NPROTHROMBIN [id number] 14:17:00 Test Item Value Reference Range Interpretation Comments PROTHROMBIN TIME PATIENT (test code 10.4 secs 10.4-12.4 N = PTP) THROMBOPLASTIN TIME [id number] 14:17:00 Test Item Value Reference Range Interpretation Comments THROMBOPLASTIN TIME PARTIAL (test 26.1 secs 22-38 N code = PTT) [id number] 14:17:00 Test Item Value Reference Range Interpretation Comments FIBRINOGEN (test code = FIB) 641 mg/dL 309-518 H URINALYSIS W/O [id number] 13:49:00 Test Item Value Reference Range Interpretation Comments UA GLUCOSE DIPSTICK (test code = NEGATIVE NEGATIVE DGLUU) UA KETONE DIPSTICK (test code = 1+ NEGATIVE KETU) UA PROTEIN DIPSTICK (test code = NEGATIVE NEGATIVE PROU) IS NURSE PERFORMING TEST? NCBC W/AUTO [id number] 13:42:00 Test Item Value Reference Range Interpretation Comments WHITE BLOOD CELL (test code = WBC) 9.7 K/mm3 6.6-12.1 N RED BLOOD CELL (test code = RBC) 3.71 M/mm3 3.45-5.01 N HEMOGLOBIN (test code = HGB) 11.0 g/dL 10.7-13.9 N HEMATOCRIT (test code = HCT) 33.0 % 32.1-42.1 N MEAN CELL VOLUME (test code = MCV) 89 fL 84.1-94.8 N MEAN CELL HGB (test code = MCH) 29.6 pg 27-35 N MEAN CELL HGB CONCETRATION (test 33.3 gm/dL 32.2-34.1 N code = MCHC) RED CELL DISTRIBUTION WIDTH (test 12.7 % 12.4-16.5 N code = RDW) PLATELET COUNT (test code = PLT) 226 K/mm3 133-385 N MEAN PLATELET VOLUME (test code = 11.1 fl 9.1-12.7 N MPV) NEUTROPHIL % (test code = NT%) 66.6 % 56.5-79.4 N LYMPHOCYTE % (test code = LY%) 26.6 % 14.3-34.3 N MONOCYTE % (test code = MO%) 5.3 % 5.1-10.4 N EOSINOPHIL % (test code = EO%) 0.8 % 0.1-3.0 N BASOPHIL % (test code = BA%) 0.3 % 0.1-1.0 N NEUTROPHIL # (test code = NT#) 6.5 K/mm3 LYMPHOCYTE # (test code = LY#) 2.6 K/mm3 MONOCYTE # (test code = MO#) 0.5 K/mm3 EOSINOPHIL # (test code = EO#) 0.08 K/mm3 BASOPHIL # (test code = BA#) 0.0 K/mm3 RBC MORPHOLOGY REQUIRED (test code NORMAL NORMAL = RBCM) PLATELET MORPHOLOGY REQUIRED (test NORMAL NORMAL code = PLTMR) URINALYSIS [id number] 18:12:00 Test Item Value Reference Range Interpretation Comments UA COLOR (test code = COLU) YELLOW YELLOW UA APPEARANCE (test code = CLEAR CLEAR APPU) UA GLUCOSE DIPSTICK (test NEGATIVE NEG code = DGLUU) UA BILIRUBIN DIPSTICK (test NEGATIVE NEG code = BILU) UA KETONE DIPSTICK (test code 1+ NEG A = KETU) UA SPECIFIC GRAVITY (test 1.016 1.001-1.035 N code = SGU) UA BLOOD DIPSTICK (test code NEG NEG = BRODIE) UA PH DIPSTICK (test code = 6.0 5-9 NANDINI) UA PROTEIN DIPSTICK (test NEGATIVE NEG code = PROU) UA UROBILINIOGEN DIPSTICK NEGATIVE mg/dL NEG (test code = URO) UA NITRITE DIPSTICK (test NEG NEG code = REBEL) UA LEUKOCYTE ESTERASE NEG NEG DIPSTICK (test code = LEUU) UA WBC (test code = WBCU) 0-2 #/hpf NONE SEEN UA RBC (test code = RBCU) NONE SEEN #/hpf NONE SEEN UA EPITHELIAL CELLS (test RARE #/HPF RARE-FEW code = EPIU) UA BACTERIA (test code = NEGATIVE /HPF RARE-FEW BACU) UA MUCUS (test code = MUCU) 1+ NONE SEEN URINE SAMPLE: CLEAN CATCH- US [facility] [id number] 10:58:00 [facility] : 1995 Sex: F Patient Name: JENNA DUNLAP Unit No: [id number] EXAMS: CPT CODE: [id number] [place] [facility] [place] [address] [facility] [address] [place] [id number] OBSTETRICAL ULTRASOUND REPORT Pat. Name: JENNA DUNLAP Pat. No: [id number] Study Date: 09/15/2020 10:08am , Age: 04 1995, 25 Pregnancies: 4, Para 2 LMP: Unknown GA by US: 32w4d GA Selected: 32w2d (From Known E) MIGUEL:11/08/2020 Referring MD: ALEXANDRA RASCON Windows Systems Architect: Dorothy Mariscal RDMS CPT4: USPREGFU Admitting MD: ALEXANDRA RASCON Hist/Ind: GROWTH SCAN 1 MEASUREMENTS AGE GROWTH EVALUATION Measurement GA Range Srce %for GA Ratios ----- ---- ------- BPD 8.0 cm 32w3d (45e5u-11f8e) Hadl BPD 53% FL/BPD 0.78 (0.71- 0.87) HC 30.8 cm 33w6d (14s5u-24h5b) Hadl HC 74% FL/AC 0.22 (0.20 - 0.24) APD 8.6 cm APD HC/AC 1.07 (0.95 - 1.14) TAD 9.7 cm TAD CI 0.75 (0.70 - 0.86) AC 28.8 cm 32w6d (08t1j-88b9o) Hadl AC 59% FL 6.2 cm 31w6d (19s3t-57c5w)Hadl FL 43% HL 5.6 cm 32w4d (95d7y-40s1s) Alfredito HL 54% GA for sonogram 32w4d (30w0d- 35w0d) Weight Estimate: based on (BPD,HC,AC,FL) Hadlock Weight: 2031 gm (1303-2289) Hadlo : 4lbs, 7oz Normal: 1867 gm (0970-9750) Brenn Wt% 60% for 32.3 wks Cervical Length: 3.5 cm Heart Rate: 144 bpm Amniotic Fluid Index: 20.3cm (08.5-24.3) Q1: 4.8cm Q2: 6.9cm Q3:3.6cm Q4: 5.0cm CLINICAL SUMMARY Type of Gestation: Marion Intrauterine in vertex presentation. Fetalsize is appropriate for gestational age. growth: Consistent with normal growth motion and organs seen: heart motion seen body and limb movements observed tone noted Placental location: Anterior Placental maturity : Grade 2 There is no evidence of placenta previa. [facility] NAME: FABIJENNA Radiology Department PHYS: Alexandra Bazzi DO [address] : 1995 AGE: 25 SEX: F [place], [place] [address] LOC: [facility] PHONE #: [phone] EXAM DATE: 09/15/2020 STATUS: REG CLI FAX #: [phone] RAD NO: Page 1 Signed Report (CONTINUED) Patient Name: JENNA DUNLAP Unit No: [id number] EXAMS: CPT CODE: [id number] [place] [address] <Continued> Amniotic fluid v olume is normal. Uterus and adnexa: No significant abnormality is seen. Thank you for allowing us to participate in the care of this patient. Enzo Carlson M.D. Electronic Signature 09/15/2020 10:58am at 1058 Reported and signed by: Enzo Carlson MD CC: Alexandra Rascon DO Technologist: Dorothy Mariscal RDMS Probe: Trnscrbd D/ (1058) t.[email or web address] Orig Print D/T:S: 09/15/2020 (1737) [facility] NAME: MICKI DUNLAPLLE Radiology Department PHYS: Alexandra Bazzi DO [address] : 1995 AGE: 25 SEX: F [place] [address] LOC: [facility] PHONE #: [phone] EXAM DATE: 09/15/2020 STATUS: REG CLI FAX #: [phone] RAD NO: Page 2 Signed Report Patient Name: JENNA DUNLAP Unit No: [id number]: CPT CODE: [id number] [place] [address] <Continued> [facility] NAME: FABIJENNA Radiology Department PHYS: Alexandra Bazzi DO [address] [place] : 1995 AGE: 25 SEX: F [place] [address] LOC: [facility] PHONE #: [phone] EXAM DATE: 09/15/2020 STATUS: REG CLI FAX #: [phone] RAD NO: Page 3 Signed Report
[2021-06-09 02:20] LABS: Urine Blood Negative (Negative); Urine Glucose Negative (Negative); Urine Protein Negative (Negative); Urine Specific Gravity 1.025 (1.005-1.030)
[2021-06-09 02:38] LABS: Urine Specific Gravity/Preg 1.025 (1.005-1.030)
[2021-06-09 02:40] LABS: Absolute Lymphocytes (CBC) 3.5 K/uL (0.7-4.9); Basophils % 0.6 % (0-1.3); Hematocrit 41.4 % (36.0-45.0); MPV 8.9 fL (7.6-11.3); RBC Red Blood Cell Count 4.96 M/uL (3.86-4.86)
[2021-06-09 02:53] LABS: BUN Blood Urea Nitrogen 14 mg/dL (7-18); Bicarbonate 29 mmol/L (21-32); Glucose Level 80 mg/dL (74-106); Potassium 3.5 mmol/L (3.5-5.1); Sodium Level 139 mmol/L (136-145)
--- NOTE | 2021-06-09 05:09 | ER ---
Nurse's Notes [facility] Name: Sis Arroyo Age: 26 yrs Sex: Female : 1995 Arrival Date: 06/09/2021 Time: 01:08 Bed 16 Private MD: Diagnosis: Presentation: 06/09 02:02 Chief complaint: Patient states: tested positive 3 weeks ago, spotting started a few em days ago, denies burning with urination or discharge, also reports cramping. Coronavirus screen: Client denies travel out of the [place] in the last 14 days. Ebola Screen: Patient negative for fever greater than or equal to 101.5 degrees Fahrenheit, and additional compatible Ebola Virus Disease symptoms Patient denies exposure to infectious person. Patient denies travel to an Ebola-affected area in the 21 days before illness onset. No symptoms or risks identified at this time. Initial Sepsis Screen: Does the patient meet any 2 criteria? No. Patient's initial sepsis screen is negative. Does the patient have a suspected source of infection? No. Patient's initial sepsis screen is negative. Risk Assessment: Do you want to hurt yourself or someone else? Patient reports no desire to harm self or others. Onset of symptoms was June 09, 2021. 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 - Social history:: Smoking status: Patient denies any tobacco usage or history of. Screenin:30 Abuse screen: Denies threats or abuse. Nutritional screening: No deficits noted. rr5 Tuberculosis screening: No symptoms or risk factors identified. Fall Risk None identified. Assessment: 02:30 General: Appears in no apparent distress. Behavior is calm, cooperative, appropriate rr5 for age. Pain: Denies pain. Neuro: Level of Consciousness is awake, alert, obeys commands, Oriented to person, place, time. Cardiovascular: Patient's skin is warm and dry. Respiratory: Airway is patent Respiratory effort is even, unlabored, Respiratory pattern is regular, symmetrical. : Reports vaginal bleeding that is. Derm: Skin is pink, warm \T\ dry. 04:06 Reassessment: Ultrasound at bedside. rr5 05:07 Reassessment: patient states she wants to leave A at this time. informed. jm8 Vital Signs: 02:02 BP 128 / 90; Pulse 76; Resp 16; Pulse Ox 99% on R/A; Weight 113.4 kg; Height 5 ft. 2 em in. (157.48 cm); 05:06 BP 120 / 78; Pulse 74; Resp 16; Pulse Ox 99% on R/A; jm8 02:02 Body Mass Index 45.73 (113.40 kg, 157.48 cm) em Vitals: 04:34 Heart Tones unable to find. jm8 ED Course: 01:08 Patient arrived in ED. am4 02:04 Triage completed. em 02:04 Arm band placed on. em 02:30 Patient has correct armband on for positive identification. Bed in low position. Call rr5 light in reach. 02:34 Marcio Wise MD is Attending Physician. [facility] 04:17 Transvaginal Ob In Process Unspecified. EDMS 04:34 No provider procedures requiring assistance completed. jm8 Administered Medications: 05:06 Not Given (Patient Refused): RhoGAM (Human) 300 mcg IM once jm8 Point of Care Testing: Urine : 03:00 hCG Reading: Positive; rr5 Outcome: 05:07 AMA AMA form signed [facility] 05:07 Condition: good 05:07 Instructed on follow up and referral plans. 05:08 Patient left the ED. jm8 Signatures: Dispatcher [employer] Gerry Ferguson, RN RN Víctor Hicks RN RN rr5 Marcio Wise MD MD 7 Karin Alicea 4 Carl Khan RN RN jm8
--- NOTE | 2021-06-09 05:09 | EDPHYS ---
Physician Documentation [facility] Name: Sis Arroyo Age: 26 yrs Sex: Female : 1995 Arrival Date: 06/09/2021 Time: 01:08 Bed 16 Private MD: ED Physician Marcio Wise HPI: 06/09 03:59 This 26 yrs old Female presents to ER via Ambulatory with complaints of mh7 Vaginal Bleeding, + Preg <12wks. 03:59 The patient presents to the emergency department with vaginal bleeding, described as mh7 spotting. course: care: none, Leakage of Fluid: none appreciated, Ultrasound: the patient has not had an ultrasound, Risk/complications: no obvious risks or complications are appreciated. Previous pregnancies: in previous pregnancies patient has had . 04:00 Associated signs and symptoms: Pertinent positives: abdominal pain, Pertinent mh7 negatives: chest pain, diarrhea, dysuria, fever, frequency, nausea, ruptured membranes, seizure, shortness of breath, vaginal discharge, vomiting. 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 - Social history:: Smoking status: Patient denies any tobacco usage or history of. ROS: 04:00 Constitutional: Negative for fever, chills, and weight loss, Eyes: Negative for injury, mh7 pain, redness, and discharge, ENT: Negative for injury, pain, and discharge, Neck: Negative for injury, pain, and swelling, Cardiovascular: Negative for chest pain, palpitations, and edema, Respiratory: Negative for shortness of breath, cough, wheezing, and pleuritic chest pain, Back: Negative for injury and pain, MS/Extremity: Negative for injury and deformity, Skin: Negative for injury, rash, and discoloration, Neuro: Negative for headache, weakness, numbness, tingling, and seizure, Psych: Negative for depression, anxiety, suicide ideation, homicidal ideation, and hallucinations, Allergy/Immunology: Negative for hives, rash, and allergies, Endocrine: Negative for neck swelling, polydipsia, polyuria, polyphagia, and marked weight changes, Hematologic/Lymphatic: Negative for swollen nodes, abnormal bleeding, and unusual bruising. Exam: 04:00 Constitutional: This is a well developed, well nourished patient who is awake, alert, mh7 and in no acute distress. Head/Face: Normocephalic, atraumatic. Eyes: Pupils equal round and reactive to light, extra-ocular motions intact. Lids and lashes normal. Conjunctiva and sclera are non-icteric and not injected. Cornea within normal limits. Periorbital areas with no swelling, redness, or edema. Neck: Trachea midline, no thyromegaly or masses palpated, and no cervical lymphadenopathy. Supple, full range of motion without nuchal rigidity, or vertebral point tenderness. No Meningismus. Chest/axilla: Normal chest wall appearance and motion. Nontender with no deformity. No lesions are appreciated. Cardiovascular: Regular rate and rhythm with a normal S1 and S2. No gallops, murmurs, or rubs. Normal PMI, no JVD. No pulse deficits. Respiratory: Lungs have equal breath sounds bilaterally, clear to auscultation and percussion. No rales, rhonchi or wheezes noted. No increased work of breathing, no retractions or nasal flaring. Abdomen/GI: Soft, non-tender, with normal bowel sounds. No distension or tympany. No guarding or rebound. No evidence of tenderness throughout. Back: No spinal tenderness. No costovertebral tenderness. Full range of motion. Skin: Warm, dry with normal turgor. Normal color with no rashes, no lesions, and no evidence of cellulitis. MS/ Extremity: Pulses equal, no cyanosis. Neurovascular intact. Full, normal range of motion. Neuro: Awake and alert, GCS 15, oriented to person, place, time, and situation. Cranial nerves II-XII grossly intact. Motor strength 5/5 in all extremities. Sensory grossly intact. Cerebellar exam normal. Normal gait. Psych: Awake, alert, with orientation to person, place and time. Behavior, mood, and affect are within normal limits. Vital Signs: 02:02 BP 128 / 90; Pulse 76; Resp 16; Pulse Ox 99% on R/A; Weight 113.4 kg; Height 5 ft. 2 em in. (157.48 cm); 05:06 BP 120 / 78; Pulse 74; Resp 16; Pulse Ox 99% on R/A; [facility] 02:02 Body Mass Index 45.73 (113.40 kg, 157.48 cm) em MDM: 06/10 00:00 ED course: Left AMA prior to receiving results and would not wait for Rhogam shot.. [facility] 00:01 Patient medically screened. [facility] 06/09 02:15 Order name: Abo/rh Typing [facility] 06/09 02:15 Order name: Basic Metabolic Panel; Complete Time: 03:08 [facility] 06/09 02:15 Order name: CBC with Diff; Complete Time: 03:08 [facility] 06/09 02:15 Order name: ABO/RH typing; Complete Time: 03:08 [facility] 06/09 02:19 Order name: Urine Dipstick-Ancillary; Complete Time: 02:38 [facility] 06/09 02:21 Order name: Urine --Ancillary (enter results) [facility] 06/09 02:15 Order name: IV Saline Lock; Complete Time: 02:39 [facility] 06/09 02:15 Order name: Labs collected and sent; Complete Time: 02:39 [facility] 06/09 02:15 Order name: NPO; Complete Time: 02:15 [facility] 06/09 02:15 Order name: Urine Dipstick-Ancillary (obtain specimen); Complete Time: 02:39 [facility] 06/09 02:22 Order name: Urine --Ancillary; Complete Time: 03:08 [facility] 06/09 03:08 Order name: HCG-Quantitative; Complete Time: 04:48 [facility] 06/09 03:08 Order name: US Transvaginal Ob [facility] 06/09 02:16 Order name: Urine Test (obtain specimen); Complete Time: 02:44 [facility] 06/09 02:39 Order name: FHT's; Complete Time: 02:42 [facility] Administered Medications: 06/09 05:06 Not Given (Patient Refused): RhoGAM (Human) 300 mcg IM once [facility] Point of Care Testing: Urine : 03:00 hCG Reading: Positive; rr5 Disposition Summary: 06/09/21 05:08 Left Against Medical Advice Location: Home [facility] Condition: Stable [facility] Discharge Instructions: - Discharge Summary Sheet 7 - Threatened Miscarriage, Jxkg-eb-Acqm [facility] Signatures: Dispatcher [employer] Gerry Ferguson, RN RN Marcio Garcia MD MD mh7 Carl Khan RN RN [email or web address]
[2021-06-09 05:31] VITALS: O2SAT 99
[2021-06-09 05:34] VITALS: BP 120/78
--- NOTE | 2021-06-09 09:43 | RAD REPORT ---
EXAM DESCRIPTION: US - Transvaginal OB - 06/09/2021 4:17 am CLINICAL HISTORY: Abd cramping, ;Vaginal bleeding Preliminary findings were provided at the time of the study. COMPARISON: Transvaginal OB dated 03/23/2020 FINDINGS: A normal shaped intrauterine gestational sac is identifiable. Yolk sac and pole are identifiable. heart rate is 121 BPM. A 3 x 3 x 1 cm subchorionic hemorrhages present inferiorly . The small size is not yet clinically significant. Yolk sac and pole measurements yield a 6 week 3 day age. Calculated MIGUEL is 01/30/2022. Both ovaries were obscured by bowel. No adnexal abnormalities identifiable. IMPRESSION: Single 6 week 3 day IUP with normal heart rate. Small subchorionic hemorrhages present inferiorly. This is not currently of a clinically significant size.
== END 2021-06-09 05:08 | disposition left against medical advice (07) ==
LOC: ER 01:03
DX: O20.0 Threatened abortion (principal)
CPT/HCPCS: 36415; 76817; 80048; 81003; 81025; 84702; 85025; 86900; 86901; 99283

== ENCOUNTER 2021-07-14 05:12 | Emergency (ER) | payer OTHER ==
--- OUTSIDE RECORDS SUMMARY | 2021-07-14 05:15 | XMS REPORT | Continuity of Care Document ---
:1995 Author Organization [facility] t Address [address] [place] [address] Care Team Providers Name Role Phone Doctor Unassigned, Name Attending Clinician Unavailable Emir EATON, Cam Attending Clinician Ultrasound Attending Clinician Unavailable Lisa KRUSE Attending [...] [facility] [place] No Known DA Active U 2019-12 [facility] Allergie -19 [facility] Medications This patient has no known medications. Procedures This patient has no known procedures. Encounters Start End Encounter Admission Attending Care Care Encounter Source Date/Time Date/Time Type Type Clinicians Facility Department ID 2021-06-12 2021-06-12 Orders Doctor OLIVA 1.2.840.114 [id number] 00:00:00 00:00:00 Only Unassigned, YASH 350.1.13.10 [facility] 4.2.7.2.686 [id number] 009 2020-10-11 2020-10-11 Case Georgie Field [facility] 1.2.674.057 [id number] 00:00:00 00:00:00 Management Cam [place] [id number] [place] 4.2.7.2.686 Professio [phone] [address] 2020-10-11 2020-10-11 Orders Doctor PJ 1.2.840.114 [id number] 00:00:00 00:00:00 Only Unassigned, YASH 350.1.13.10 [place] [facility] 4.2.7.2.686 [id number] [id number] 2020-09-13 2020-09-13 Orders Doctor PJ 1.2.840.114 [id number] 00:00:00 00:00:00 Only Unassigned, YASH 350.1.13.10 [place] [address].2.7.2.686 [id number] 009 2020-08-24 2020-08-24 Routine Georgie Field [facility] 1.2.080.556 [id number] 12:35:45 13:50:15 Cam [place] 350.1.13.10 Visit [place] 4.2.7.2.686 Professio [phone] [address] 2020-07-14 2020-07-14 Health Care Facilities Inspector Ultrasound, [facility] 1.2.840.114 [id number] 09:06:31 10:21:31 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 [facility] 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 350.1.13.10 [facility] 4.2.7.2.686 MATERNAL [phone] & CHILD [address] [place] [address] 2020-06-30 2020-06-30 Routine Georgie Field [facility] 1.2.870.610 [id number] 13:10:39 14:01:12 Cam [place] 350.1.13.10 Visit [place] 4.2.7.2.686 Professio [phone] [address] 2020-06-29 2020-06-29 Telephone Georgie Filed [facility] 1.2.840.114 [id number] 00:00:00 00:00:00 Cam [place] 350.1.13.10 [place] 4.2.7.2.686 Professio [phone] [address] 2020-06-27 2020-06-27 Orders Doctor JP 1.2.840.114 [id number] 00:00:00 00:00:00 Only Unassigned, YASH 350.1.13.10 [facility] 4.2.7.2.686 [id number] [id number] 2020-06-15 2020-06-15 Case Georgie Field [facility] 1.2.309.979 [id number] 00:00:00 00:00:00 Management Cam [place] 350.1.13.10 [place] 4.2.7.2.686 Professio [phone] [address] 2020-06-13 2020-06-13 Orders Doctor OLIVA 1.2.840.114 [id number] 00:00:00 00:00:00 Only Unassigned, YASH 350.1.13.10 [facility] 4.2.7.2.686 [id number] [id number] 2020-05-31 2020-05-31 Case Georgie Field [facility] 1.2.875.642 [id number] 00:00:00 00:00:00 Management Cam [place] 350.1.13.10 [place] 4.2.7.2.686 Professio [phone] [address] 2020-05-31 2020-05-31 Case Georgie Field [facility] 1.2.607.044 [id number] 00:00:00 00:00:00 Management Cam [place] 350.1.13.10 [place] 4.2.7.2.686 Professio [phone] [address] 2020-05-31 2020-05-31 Orders Doctor OLIVA 1.2.840.114 [id number] 00:00:00 00:00:00 Only Unassigned, YASH 350.1.13.10 [facility] 4.2.7.2.686 [id number] [id number] 2020-05-25 2020-05-25 Case Lisa [facility] 1.2.220.854 [id number] 00:00:00 00:00:00 Management Angelica [place] 350.1.13.10 [place] 4.2.7.2.686 Professio [phone] [address] 2020-05-23 2020-05-23 [facility] 1.2.770.439 [id number] 00:00:00 00:00:00 Management Angelica [place] 350.1.13.10 [place] 4.2.7.2.686 Professio [phone] [address] 2020-05-22 2020-05-22 [facility] 1.2.729.031 [id number] 10:37:27 11:13:02 Angelica [place] 350.1.13.10 Visit [place] 4.2.7.2.686 Professio [phone] [address] 2020-05-22 2020-05-22 Orders Doctor PJ 1.2.840.114 [id number] 00:00:00 00:00:00 Only Unassigned, YASH 350.1.13.10 [facility] 4.2.7.2.686 [id number] 009 2020-05-08 2020-05-08 [facility] 1.2.840.114 [id number] 00:00:00 00:00:00 Cam [place] 350.1.13.10 [place] 4.2.7.2.686 Professio [phone] [address] 2020-05-05 2020-05-05 Telephone Georgie Field [facility] 1.2.840.114 [id number] 00:00:00 00:00:00 Cam [place] 350.1.13.10 [place] 4.2.7.2.686 Professio [phone] [address] 2020-05-05 2020-05-05 Orders Doctor PJ 1.2.840.114 [id number] 00:00:00 00:00:00 Only Unassigned, YASH 350.1.13.10 [place] [facility] 4.2.7.2.686 [id number] 009 2020-05-03 2020-05-03 Telephone Georgie Field [facility] 1.2.840.114 [id number] 00:00:00 00:00:00 Cam [place] 350.1.13.10 [place] 4.2.7.2.686 Professio [phone] [address] 2020-04-27 2020-04-27 Health Care Facilities Inspector 2, [facility] 1.2.840.114 [id number] 13:29:16 13:44:16 Visit [place] 350.1.13.10 [place] 4.2.7.2.686 Professio [phone] [address] 2020-04-27 2020-04-27 Routine Georgie Field [facility] 1.2.585.560 [id number] 12:31:12 13:22:57 Cam [place] 350.1.13.10 Visit [place] 4.2.7.2.686 Professio [phone] [address] 2020-04-18 2020-04-18 Telemedici Georgie Field [facility] 1.2.840.114 [id number] 08:10:01 08:25:01 ne Visit Cam [place] 350.1.13.10 [place] 4.2.7.2.686 Professio [phone] [address] 2020-03-23 2020-03-23 Telemedici Georgie Field [facility] 1.2.840.114 [id number] 14:03:38 15:16:55 ne Visit Cam [place] 350.1.13.10 [place] 4.2.7.2.686 Professio [phone] [address] 2020-03-21 2020-03-21 Telephone Georgie Field [facility] 1.2.840.114 [id number] 00:00:00 00:00:00 Cam [place] 350.1.13.10 [place] 4.2.7.2.686 Professio [phone] [address] 2020-03-14 2020-03-14 Telephone Georgie Field [facility] 1.2.840.114 [id number] 00:00:00 00:00:00 Cam [place] 350.1.13.10 [place] 4.2.7.2.686 Professio [phone] [address] 2020-03-06 2020-03-06 Health Care Facilities Inspector 2, Adc Lab [facility] 1.2.840.114 [id number] 11:40:07 11:55:07 Visit [place] 350.1.13.10 [place] 4.2.7.2.686 Professio [phone] [facility] [address] [facility] 2020-03-06 2020-03-06 Telephone Georgie Field [facility] 1.2.840.114 [id number] 00:00:00 00:00:00 Cam [place] 350.1.13.10 [place] 4.2.7.2.686 Professio [phone] [address] 2020-03-06 2020-03-06 Telephone Georgie Field [facility] 1.2.840.114 [id number] 00:00:00 00:00:00 Cam [place] 350.1.13.10 [place] 4.2.7.2.686 Professio [phone] [address] 2020-03-06 2020-03-06 Orders Doctor PJ 1.2.840.114 [id number] 00:00:00 00:00:00 Only Unassigned, YASH 350.1.13.10 [place] [facility] 4.2.7.2.686 [phone] [facility] 2020-03-03 2020-03-03 Telephone Georgie Field [facility] 1.2.840.114 [id number] 00:00:00 00:00:00 Cam [place] 350.1.13.10 [place] 4.2.7.2.686 Professio [phone] [address] 2020-03-02 2020-03-02 Health Care Facilities Inspector 2, [facility] Lab [facility] 1.2.840.114 [id number] 15:37:16 15:52:16 Visit [place] 350.1.13.10 [place] 4.2.7.2.686 Professio [phone] [address] 2020-03-02 2020-03-02 Telephone Georgie Field [facility] 1.2.840.114 [id number] 00:00:00 00:00:00 Cam [place] 350.1.13.10 [place] 4.2.7.2.686 Professio [phone] [address] Results Test Description Test Time Test Comments Results Result Comments Source [facility] 2020-11-04 07:16:00 Test Item Value Reference Range Interpretation Comme nts HEMOGLOBIN (test code = HGB) 9.5 g/dL 10.7-13.9 L HEMATOCRIT (test code = HCT) 29.1 % 32.1-42.1 L [id number] 12:03:00 Test Item Value Reference Range Interpretation Comments GLUCOSE (test code = GLUCBG) 50 mg/dl 60-110 L COVID 19 Asymptomatic IH [id number] 15:24:00 Test Item Value Reference Range Interpretation [...] (POC), i.e., in patien t care settingsoperati ng under a CLIA Certificat e of Waiver, Certifi wendy ofCompliance, o r Certificate of Accreditation. This test is only authori zezenaida for the duration of thedeclaration that circumstances e xist justifying theauthorizatio n of emergency use o f in vitro diagnostic test sfor detection and/o r diagnosis of CO VID-19 under Kyntdao64 4(b)(1) of the Act, 21 U.S .C. 360bbb-3(b)(1), unless theauthorizatio n is terminated or r evoked sooner. AG HEPATITIS B [id number] 14:56:00 Test Item Value Reference Range Interpretation Comments AG HEPATITIS B SURFACE (test code NONREACTIVE NONREACTIVE = HBSAG) IS CONSENT FORM SIGNED FOR HIV TESTING? NAB HEPATITIS C [id number] 14:56:00 Test Item Value Reference Range Interpretation Comments AB HEPATITIS C (test code = NONREACTIVE NONREACTIVE HCVAB) SIGNAL TO CUTOFF (test code = 0.08 <0.80 N CUTOFF) IS CONSENT FORM SIGNED FOR HIV TESTING? NAB [id number] 14:56:00 Test Item Value Reference Range Interpretation Comments AB TREPONEMA (test code = TREPAB) NONREACTIVE NONREACTIVE IS CONSENT FORM SIGNED FOR HIV TESTING? NAB HIV 1 14:56:00 Test Item Value Reference Range Interpretation Comments AB HIV 1 2 (test NONREACTIVE NONREACTIVE Done by Nikki [facility] code = [id number]) 4th Gen HIV Ag/Ab Combo Screen IS CONSENT FORM SIGNED FOR HIV TESTING? NAG HEPATITIS B [id number] 14:23:00 Test Item Value Reference Range Interpretation Comments AG HEPATITIS B SURFACE (test code NONREACTIVE NONREACTIVE = HBSAG) IS CONSENT FORM SIGNED FOR HIV TESTING? NAB HEPATITIS C [id number] 14:23:00 Test Item Value Reference Range Interpretation Comments AB HEPATITIS C (test code = HCVAB) NONREACTIVE SIGNAL TO CUTOFF (test code = CUTOFF) <0.80 IS CONSENT FORM SIGNED FOR HIV TESTING? NAB [id number] 14:23:00 Test Item Value Reference Range Interpretation Comments AB TREPONEMA (test code = TREPAB) NONREACTIVE NONREACTIVE IS CONSENT FORM SIGNED FOR HIV TESTING? NAB HIV 1 14:23:00 Test Item Value Reference Range Interpretation Comments AB HIV 1 2 (test code = [id number]) NONREACTIVE IS CONSENT FORM SIGNED FOR HIV TESTING? NPROTHROMBIN [id number] 14:17:00 Test Item Value Reference Range Interpretation Comments PROTHROMBIN TIME PATIENT (test code 10.4 secs 10.4-12.4 N = PTP) THROMBOPLASTIN TIME [id number] 14:17:00 Test Item Value Reference Range Interpretation Comments THROMBOPLASTIN TIME PARTIAL (test 26.1 secs 22-38 N code = PTT) [id number] 14:17:00 Test Item Value Reference Range Interpretation Comments FIBRINOGEN (test code = FIB) 641 mg/dL 309-518 H URINALYSIS W/O [id number] 13:49:00 Test Item Value Reference Range Interpretation Comments UA GLUCOSE DIPSTICK (test code = NEGATIVE NEGATIVE DGLUU) UA KETONE DIPSTICK (test code = 1+ NEGATIVE KETU) UA PROTEIN DIPSTICK (test code = NEGATIVE NEGATIVE PROU) IS NURSE PERFORMING TEST? NCBC W/AUTO [id number] 13:42:00 Test Item Value Reference Range Interpretation [...] (test NORMAL NORMAL code = PLTMR) URINALYSIS [id number] 18:12:00 Test Item Value Reference Range Interpretation [...] NONE SEEN URINE SAMPLE: CLEAN CATCH- US [facility] [id number] 10:58:00 [facility] : 1995 Sex: F Patient Name: JENNA DUNLAP Unit No: [id number] EXAMS: [place]: [id number] [address] [facility] [address], [place] [address] OBSTETRICAL ULTRASOUND REPORT Pat. Name: JENNA DUNLAP Pat. No: [id number] Study Date: 09/15/2020 10:08am , Age: 04 1995, 25 Pregnancies: 4, Para 2 LMP: Unknown GA by US: 32w4d GA Selected: 32w2d (From Known E) MIGUEL:11/08/2020 Referring MD: ALEXANDRA RASCON Banquet Attendant: Dorothy Mariscal RDMS CPT4: USPREGFU Admitting MD: ALEXANDRA RASCON Hist/Ind: GROWTH SCAN 1 MEASUREMENTS AGE GROWTH EVALUATION Measurement GA Range Srce %for GA Ratios ----- ---- ------- BPD 8.0 cm 32w3d (75r5g-46x5h) Hadl BPD 53% FL/BPD 0.78 (0.71- 0.87) HC 30.8 cm 33w6d (44d7z-56a0p) Hadl HC 74% FL/AC 0.22 (0.20 - 0.24) APD 8.6 cm APD HC/AC 1.07 (0.95 - 1.14) TAD 9.7 cm TAD CI 0.75 (0.70 - 0.86) AC 28.8 cm 32w6d (64d7j-16q0e) Hadl AC 59% FL 6.2 cm 31w6d (56i2i-30i7q)Hadl FL 43% HL 5.6 cm 32w4d (72v1e-91p3v) Alfredito HL 54% GA for sonogram 32w4d (30w0d- 35w0d) Weight Estimate: based on (BPD,HC,AC,FL) [place] Weight: 2031 gm (8022-3522) Hadlo : 4lbs, 7oz Normal: 1867 gm (2262-8647) Brenn Wt% 60% for 32.3 wks Cervical [...] is no evidence of placenta previa. [facility] NAME: JENNA DUNLAP Radiology Department PHYS: Alexandra Bazzi DO [address] : 1995 AGE: 25 SEX: [place] [address] LOC: FrantzRAD PHONE #: [phone] EXAM DATE: 09/15/2020 STATUS: REG CLI FAX #: [phone] RAD NO: Page 1 Signed Report (CONTINUED) Patient Name: JENNA DUNLAP Unit No: [id number] EXAMS: CPT CODE: [id number] [place] [address] <Continued> Amniotic fluid v olume is normal. Uterus and adnexa: No significant abnormality is seen. Thank you for allowing us to participate in the care of this patient. Enzo Carlson M.D. Electronic Signature 09/15/2020 10:58am at 1058 Reported and signed by: Enzo Carlson MD CC: Alexandra Rascon DO Technologist: Dorothy Mariscal RDMS Probe: Trnscrbd D/ (8908) t.HOLLYRMilyYOS Orig Print D/T:S: 09/15/2020 (2925) [facility] Rad[facility] Department PHYS: BRENNEN AlexandermanAlexandra DO [address] : 1995 AGE: 25 SEX: F [place] [address] LOC: F.RAD PHONE #: [phone] EXAM DATE: 09/15/2020 STATUS: REG CLI FAX #: [phone] RAD NO: Page 2 Signed Report Patient Name: JENNA DUNLAP Unit No: [id number]: CPT CODE: [id number] [place] [address] <Continued> [facility] NAME: [facility] Radiology Department PHYS: JESSIEDEJUAN Greco Abiodun,Alexandra CHAVEZ [address] : 1995 AGE: 25 SEX: F [place] [address] LOC: F.RAD PHONE #: [phone] EXAM DATE: 09/15/2020 STATUS: REG CLI FAX #: [phone] RAD NO: Page 3 Signed Report
[2021-07-14 06:46] LABS: Urine Blood Negative (Negative); Urine Glucose Negative (Negative); Urine Protein Trace (Negative); Urine Specific Gravity >=1.030 (1.005-1.030); Urine pH 5.5 (5.0-7.0)
[2021-07-14 07:06] LABS: Absolute Lymphocytes (CBC) 2.1 K/uL (0.7-4.9); Basophils % 0.5 % (0-1.3); Lymphocytes % 33.8 % (15.3-44.8); MPV 8.7 fL (7.6-11.3); RBC Red Blood Cell Count 4.64 M/uL (3.86-4.86)
[2021-07-14 07:24] LABS: BUN Blood Urea Nitrogen 9 mg/dL (7-18); Bicarbonate 25 mmol/L (21-32); Glucose Level 77 mg/dL (74-106); Potassium 3.5 mmol/L (3.5-5.1); Sodium Level 139 mmol/L (136-145)
[2021-07-14 08:25] LABS: Urine Bacteria 20-50 /HPF (<20); Urine Mucus 3+ /HPF (NONE SEEN); Urine RBC <5 /HPF (NONE SEEN)
[2021-07-14] MEDS ORDERED: CEFTRIAXONE/SWI 1gm 1 GM/10 ML SYR ONE (09:01)
--- NOTE | 2021-07-14 10:04 | RAD REPORT ---
EXAM DESCRIPTION: US - Transvaginal OB - 07/14/2021 9:36 am CLINICAL HISTORY: Abd cramping, ;Vaginal bleeding COMPARISON: Transvaginal OB dated 06/09/2021 FINDINGS: Left ovary is identified, normal size and shows normal blood flow within the ovarian rod a. No left adnexal mass or abnormal fluid collections seen. Right ovary is obscured by bowel. No righ t adnexal mass identifiable. Normal shaped, normally positioned intrauterine gestational sac identified. [place]-rump length measure ments correspond to 11 weeks 6 day gestational age. Calculated MIGUEL is 01/27/2022. This is only a 3 da y differential from the May study which is a normal variable range. Uterine size is normal with no m yometrial mass. No new or enlarging subchorionic hemorrhage. Cervix appears to be closed. The subchor ionic hemorrhage seen in May is not identifiable on this study. Heart rate is 159 BPM. IMPRESSION: Single 11 weight 6 day IUP with heart rate 159 BPM. Calculated MIGUEL is 01/27/2022. Growth since the May study is normal range. No new or enlarging intrauterine hemorrhage. Cervix appears closed. Nonvisualization of the right ovary. Left ovary is unremarkable. No adnexal mass.
--- NOTE | 2021-07-14 10:27 | ER ---
Nurse's Notes [facility] Name: Sis Arroyo Age: 26 yrs Sex: Female : 1995 Arrival Date: 07/14/2021 Time: 05:17 Bed DX1 Private MD: Diagnosis: Threatened ;UTI/ Urinary tract infection, site not specified Presentation: 07/14 06:18 Chief complaint: Patient states: 12 weeks and started spotting this morning, em reports lower abd cramping, also would like a covid negative test so she can go to the OB, tested positive 9 days at [place], denies any covid symptoms. Coronavirus screen: Client denies travel out of the [place] in the last 14 days. Ebola Screen: Patient negative for fever greater than or equal to 101.5 degrees Fahrenheit, and additional compatible Ebola Virus Disease symptoms Patient denies exposure to infectious person. Patient denies travel to an Ebola-affected area in the 21 days before illness onset. No symptoms or risks identified at this time. Initial Sepsis Screen: Does the patient meet any 2 criteria? No. Patient's initial sepsis screen is negative. Does the patient have a suspected source of infection? No. Patient's initial sepsis screen is negative. Risk Assessment: Do you want to hurt yourself or someone else? Patient reports no desire to harm self or others. Onset of symptoms was July 14, 2021. 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 - Social history:: Smoking status: Patient denies any tobacco usage or history of. Screenin:30 Abuse screen: Denies threats or abuse. Denies injuries from another. Nutritional ss screening: No deficits noted. Tuberculosis screening: Never had TB. Fall Risk None identified. Assessment: 08:30 General: Appears in no apparent distress. comfortable, Behavior is calm, cooperative. ss Pain: Denies pain. Neuro: Level of Consciousness is awake, alert, obeys commands, Oriented to person, place, time, situation. Respiratory: Airway is patent Respiratory effort is even, unlabored, Respiratory pattern is regular, symmetrical. : Reports vaginal bleeding that is spotty. Derm: Skin is intact, is healthy with good turgor, Skin is dry, Skin is pink, warm \T\ dry. normal. Musculoskeletal: Circulation, motion, and sensation intact. Range of motion: intact in all extremities, Swelling absent. 09:30 Reassessment: No changes from previously documented assessment. ss 11:40 Reassessment: Patient appears in no apparent distress at this time. No changes from ss previously documented assessment. Patient and/or family updated on plan of care and expected duration. Pain level reassessed. Patient is alert, oriented x 3, equal unlabored respirations, skin warm/dry/pink. Vital Signs: 06:18 Pulse 90; Resp 18; Temp 97.8; Pulse Ox 100% on R/A; Weight 108.86 kg; Height 5 ft. 2 em in. (157.48 cm); 06:26 BP 132 / 98; em 06:18 Body Mass Index 43.90 (108.86 kg, 157.48 cm) em ED Course: 05:17 Patient arrived in ED. bp1 06:25 Triage completed. em 06:25 Arm band placed on. em 06:38 Initial lab(s) drawn, by tn, sent to lab. Inserted saline lock: 20 gauge in right em antecubital area, using aseptic technique. Blood collected. 06:46 Jonathan Cage NP is PHCP. pm1 06:46 Marcio Wise MD is Attending Physician. pm1 08:35 Eulalia Toure RN is Primary Nurse. ss 09:30 Patient has correct armband on for positive identification. ss 09:35 US Transvaginal Ob In Process Unspecified. EDMS 11:36 No provider procedures requiring assistance completed. ss 11:42 IV discontinued, intact, bleeding controlled, No redness/swelling at site. Pressure ss dressing applied. Administered Medications: 08:42 Drug: Rocephin (cefTRIAXone) 1 grams Route: IV; Rate: calculated rate; Site: right ss antecubital; 10:24 Drug: RhoGAM (Human) 300 mcg Route: IM; Site: left deltoid; ss 11:42 Follow up: Response: No adverse reaction Outcome: 10:27 Discharge ordered by MD. pm1 11:42 Discharged to home ambulatory. 11:42 Condition: good 11:42 Discharge instructions given to patient, Instructed on discharge instructions, follow up and referral plans. Demonstrated understanding of instructions, follow-up care, Prescriptions given X 1. 11:43 Patient left the ED. Signatures: Dispatcher [employer] EDGerry Celestin RN RN em Smirch, Shelby, RN RN ss Marinas, Patrick, COMPONENT ENGINEER COMPONENT ENGINEER pm1 Onelia Mcbride
--- NOTE | 2021-07-14 10:27 | EDPHYS ---
Physician Documentation [facility] Name: Sis Arroyo Age: 26 yrs Sex: Female : 1995 Arrival Date: 07/14/2021 Time: 05:17 Bed DX1 Private MD: ED Physician Marcio Wise HPI: 07/14 08:36 This 26 yrs old Female presents to ER via Ambulatory with complaints of pm1 Vaginal Bleeding, +12 WEEKS . 08:36 The patient presents with vaginal bleeding that is spotting. Onset: The pm1 symptoms/episode began/occurred this morning. Modifying factors: The symptoms are alleviated by nothing, the symptoms are aggravated by Cough. Associated signs and symptoms: Pertinent positives: Abdominal cramping, Pertinent negatives: dysuria, fever, nausea, vomiting. Severity of symptoms: in the emergency department the symptoms have improved. The patient is sexually active. The patient has not recently seen a physician, Patient tested positive for Covid 8 days ago. Patient presents to the ER with complaints of vaginal bleeding, spotting. Patient with an episode of coughing that resulted in abdominal cramping and she reports resulting vaginal spotting. Patient denies any dysuria. Patient is concerned about the bleeding because she is Rh- and she is requesting to get RhoGam. Additionally she tested positive for Covid 8 days ago and is denying any Covid symptoms currently. She would like to get a Covid swab if possible because she needs two negative Covid tests to start seeing her OB again. 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 - Social history:: Smoking status: Patient denies any tobacco usage or history of. ROS: 08:36 Positive for vaginal bleeding, Negative for urinary symptoms, flank pain. pm1 08:36 Constitutional: Negative for fever, chills, and weight loss, Cardiovascular: Negative for chest pain, palpitations, and edema, Respiratory: Negative for shortness of breath, cough, wheezing, and pleuritic chest pain. 08:36 MS/Extremity: Negative for injury and deformity, Skin: Negative for injury, rash, and discoloration, Neuro: Negative for headache, weakness, numbness, tingling, and seizure. 08:36 Abdomen/GI: Positive for abdominal cramps, of the suprapubic area, Pain and cramp have resolved. 08:36 All other systems are negative. Exam: 08:36 Constitutional: This is a well developed, well nourished patient who is awake, alert, pm1 and in no acute distress. Head/Face: Normocephalic, atraumatic. 08:36 Back: No spinal tenderness. No costovertebral tenderness. Full range of motion. Skin: Warm, dry with normal turgor. Normal color with no rashes, no lesions, and no evidence of cellulitis. MS/ Extremity: Pulses equal, no cyanosis. Neurovascular intact. Full, normal range of motion. 08:36 Eyes: Exam is negative for acute changes, Extraocular movements: no acute changes. 08:36 ENT: Exam is negative for acute changes, Mouth: Lips: normal, Oral mucosa: normal, pink and intact, moist. 08:36 Cardiovascular: Exam negative for acute changes, Rate: normal, Rhythm: regular, Pulses: no pulse deficits are appreciated. 08:36 Respiratory: Exam negative for acute changes, respiratory distress, shortness of breath. 08:36 Abdomen/GI: Inspection: obese Palpation: abdomen is soft and non-tender, in all quadrants. 08:36 Neuro: Exam negative for acute changes, Orientation: is normal, Mentation: is normal, Motor: moves all fours. Vital Signs: 06:18 Pulse 90; Resp 18; Temp 97.8; Pulse Ox 100% on R/A; Weight 108.86 kg; Height 5 ft. 2 em in. (157.48 cm); 06:26 BP 132 / 98; em 06:18 Body Mass Index 43.90 (108.86 kg, 157.48 cm) em MDM: 08:27 Patient medically screened. pm1 08:36 ED course: Patient tested positive for Covid 8 days ago. In addition to complaint of pm1 abdominal cramping and vaginal bleeding, and need for RhoGam, patient requested Covid testing. Patient denies any current symptoms of Covid. 09:39 Data reviewed: vital signs. Data interpreted: Pulse oximetry: on room air is 100 %. pm1 Interpretation: normal. 11:41 ED course: Patient called back to find her Covid result. Informed her that lab called pm1 the presumptive positive Covid result. 07/14 06:33 Order name: Abo/rh Typing em 07/14 06:33 Order name: Basic Metabolic Panel; Complete Time: 08:16 em 07/14 06:33 Order name: CBC with Diff; Complete Time: 08:16 em 07/14 06:45 Order name: Urine Dipstick-Ancillary; Complete Time: 07:02 EDCO 07/14 06:53 Order name: Urine Microscopic Only; Complete Time: 08:27 eb 07/14 06:53 Order name: Urine --Ancillary (enter results); Complete Time: 08:16 eb 07/14 08:26 Order name: Urine Culture EDCO 07/14 08:42 Order name: Rh Typing EDCO 07/14 08:42 Order name: Antibody Screen EDCO 07/14 08:42 Order name: Fetalscreen EDCO 07/14 08:42 Order name: Cord Rh type EDCO 07/14 08:42 Order name: Rhogam EDCO 07/14 09:29 Order name: ABO/RH no charge; Complete Time: 09:33 EDCO 07/14 06:33 Order name: IV Saline Lock; Complete Time: 06:33 em 07/14 06:33 Order name: Labs collected and sent; Complete Time: 06:33 em 07/14 06:33 Order name: NPO; Complete Time: 06:33 em 07/14 06:33 Order name: Urine Dipstick-Ancillary (obtain specimen); Complete Time: 08:20 em 07/14 08:35 Order name: US Transvaginal Ob; Complete Time: 10:25 pm1 Administered Medications: 08:42 Drug: Rocephin (cefTRIAXone) 1 grams Route: IV; Rate: calculated rate; Site: right ss antecubital; 10:24 Drug: RhoGAM (Human) 300 mcg Route: IM; Site: left deltoid; ss 11:42 Follow up: Response: No adverse reaction ss Disposition: 07/15 06:46 Co-signature as Attending Physician, Marcio Wise MD. [email or web address] Disposition Summary: 07/14/21 10:27 Discharge Ordered Location: Home pm1 Problem: new pm1 Symptoms: have improved pm1 Condition: Stable pm1 Diagnosis - Threatened pm1 - UTI/ Urinary tract infection, site not specified pm1 Followup: pm1 - With: Emergency Department - When: As needed - Reason: Worsening of condition Followup: pm1 - With: Private Physician - When: 2 - 3 days - Reason: Recheck today's complaints, Continuance of care, Re-evaluation by your physician Discharge Instructions: - Discharge Summary Sheet pm1 - Threatened Miscarriage pm1 - and Urinary Tract Infection pm1 Forms: - Medication Reconciliation Form pm1 - Thank You Letter pm1 - Antibiotic Education pm1 - Prescription Opioid Use pm1 Prescriptions: - Macrobid 100 mg Oral Capsule - take 1 capsule by ORAL route every 12 hours for 10 days; 20 capsule; Refills: pm1 0, Product Selection Permitted Signatures: Dispatcher [employer] Gerry Ferguson RN Eulalia Dominguez RN RN ss Jonathan Cage, ACCURACY EXPERT ACCURACY EXPERT pm1 Marcio Wise MD MD [email or web address] Corrections: (The following items were deleted from the chart) 07/14 09:42 08:35 CORONAVIRUS+BRZ ordered. EDMS EDMS
[2021-07-14 11:57] VITALS: TEMP 97.8; O2SAT 100
[2021-07-14 12:03] VITALS: BP 132/98
== END 2021-07-14 11:43 | disposition home or self-care (01) ==
LOC: ER 05:12
DX: O20.0 Threatened abortion (principal); O98.511 Other viral diseases complicating pregnancy, first trimester; U07.1 COVID-19; O23.41 Unspecified infection of urinary tract in pregnancy, first trimester; Z3A.11 11 weeks gestation of pregnancy; Z88.0 Allergy status to penicillin; Z88.7 Allergy status to serum and vaccine
CPT/HCPCS: 87088; 85025; 87086; 80048; 36415; 86900; 86850; 81025; 85461; 86901 ×2; 76817; 96372; 96374; 99284; J2790; U0003; J0696; 81003; 81015

== ENCOUNTER 2024-06-04 21:33 | Emergency (ER) | payer OTHER, SELFPAY ==
--- OUTSIDE RECORDS SUMMARY | 2024-06-04 21:38 | XMS REPORT | Continuity of Care Document ---
Author Name Unknown Address [address] [facility] [address]. [address] [place] [address] [facility] thconnect Address [address] [facility]. 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 Automatic Name Role Phone Pcp, Patient Does Not Have A Primary Care Physic annemarie Rafael Long Attending Clinician Unavailab le [facility]_Ethan_Jahaira Attending Clinician Unavail able Rafael Long Attending Clinician [phone] Doctor Unassigned, [place] Attending Clinician U FABI Serrano Attending Clinician Unavailable Fabi Suggs MD Attending Clinician [phone] Pob, [facility] Main Attending Clinician UnavailAlexandra Manrique Attending Clinician Unavailable Saida Oliveira MD Attending Clinician [phone] SAIDA OLIVEIRA Attending Clinician Unavailable Ultrasound, Ang-Mfm Attending Clinician Unavaila Balbina Jhaveri MD Attending Clinician [phone] Karolina Burroughs PA-C Attending Clinician [phone] VANAPHAN, KAROLINA Attending Clinician Unavailable 2, [facility] Attending Clinician Unavailable AJIT BOB Attending Clinician Unavail able Ajit Ivy Attending Clinician + Rafael Long Admitting Clinician Unavailab mariah [facility]_Ethan_Jahaira Admitting Clinician Unavail able Alexandra Garcia Admitting Clinician Unavailable Payers Payer Name Policy Type Policy Number Effective Date Expirati on Date Source [facility] (MEDICAID REPLACEMENT - HMO) [id number] MEDICAID OF [place] [id number] 2020 00:00:00 Problems Condition Name Condition Details Condition Category Status Onset Date Resolution Date Last Treatment Date Treating Clinician Comments Source Deliveries by Deliveries by Problem Active 1-24 00:00: 00 [facility] Lab test positive for detection of COVID-19 virus Lab test positive for detection of COVID-19 virus Disease Active 8- 00:00: 00 [facility] Problem Active 06-20 00:00: 00 [facility] Polycystic ovary syndrome Polycystic Ovary Syndrome Problem Active 7 00:00: 00 [facility] Short interval between pregnancie s affecting in first trimester, antepartum Short interval between pregnancie s affecting in first trimester, antepartum Disease Active 06-12 00:00: 00 [facility] History of pre-eclamp sanaz in prior , currently History of pre-eclamp sanaz in prior , currently Disease Active 06-12 00:00: 00 [facility] Gastroesop hageal reflux disease without esophagiti s Gastroesop hageal reflux disease without esophagiti s Disease Active 06-12 00:00: 00 [facility] Encounter for test, result positive Encounter for test, result positive Disease Active 06-12 00:00: 00 [facility] Pre-eclamp sanaz, Pre-eclamp sanaz, Disease Active 02-22 00:00: 00 [facility] care and examinatio n immediatel y after delivery care and examinatio n immediatel y after delivery Disease Active 02-20 00:00: 00 [facility] Single liveborn, born in hospital, delivered by delivery Single liveborn, born in hospital, delivered by delivery Disease Active 3 00:00: 00 [facility] Previous section complicati ng , antepartum condition or complicati on Previous section complicati ng , antepartum condition or complicati on Disease Active 02-20 00:00: 00 [facility] 39 weeks gestation of 39 weeks gestation of Disease Active 02-19 00:00: 00 [facility] Breech presentati on, single or unspecifie d fetus Breech presentati on, single or unspecifie d fetus Disease Active 02-08 00:00: 00 [facility] Rh negative state in antepartum period Rh negative state in antepartum period Disease Active 2017-12 003 00:00: 00 [facility] Screen for STD (sexually transmitte d disease) Screen for STD (sexually transmitte d disease) Disease Active 2016-12 00:00: 00 [facility] Morbid obesity Morbid obesity Disease Active 2016-12 00:00: 00 [facility] Need for HPV vaccinatio n Need for HPV vaccinatio n Disease Active 2016-12 00:00: 00 [facility] Obesity in Obesity in Disease Active 2016-12 00:00: 00 [facility] BMI 45.0-49.9, adult BMI 45.0-49.9, adult Disease Active 2016-12 00:00: 00 [facility] Supervisio n of high risk in first trimester Supervisio n of high risk in first trimester Disease Active 2015-12 0 00:00: 00 [facility] History of PCOS History of PCOS Disease Active 06-07 00:00: 00 [facility] Allergies, Adverse Reactions, Alerts Allergy Name Allergy Type Status Severity Reaction(s) Onset Date Inactive Date Treating Clinician Comments Source adhesive tape DA Active CO RASH 01-25 00:00: [address] [facility] No Known Allergie s DA Active U 12-24 00:00: 00 [facility] No Known Allergie s DA Active U 2019-12 00:00: 00 [facility] No Known Allergie s DA Active U 2019-12 00:00: 00 [facility] No Known Allergie s DA Active U 2019-12 00:00: 00 [facility] No Known Allergie s DA Active U 2019-12 00:00: 00 [facility] PERTUSSI N AM DRUG Active Swelling 02-15 00:00: 00 [facility] Pertussi n Am Propensi ty to adverse reaction s Active Swelling 02-15 00:00: 00 [facility] ADHESIVE Drug Class Active Med Hives 2015-12 00:00: 00 [facility] Adhesive Propensi ty to adverse reaction s Active Hives 2015-12 00:00: 00 [facility] Social History Social Habit Start Date Stop Date Quantity Comments Source ASSERTION 2021-05-11 00:00:00 [facility] Exposure to SARS-CoV-2 (event) Not sure [facility] Alcohol intake 2021-07-31 00:00:00 2021-07-31 00:00:00 0 /d [facility] Alcohol Comment 2016-02-26 00:00:00 2016-02-26 00:00:[address] [facility] Tobacco use and exposure 2016-02-26 00:00:00 2016-02-26 00:00:[address] [facility] Sex Assigned At 1995 00:00:00 1995 00:00:00 [facility] Smoking Status Start Date Stop Date Source Never smoker [facility] Medications Ordered Medication Name Filled Medication Name Start Date Stop Date Current Medication? Ordering Clinician Indication Dosage Frequency Signature (SIG) Comments Components Source acetaminoph en (TYLENOL ORAL) 07-31 16:39: 50 Yes Take by mouth. [facility] cyanocobala min, vitamin B-12, (VITAMIN B-12 ORAL) 07-31 16:39: 50 Yes Take by mouth. [facility] acetaminoph en (TYLENOL ORAL) 07-31 11:39: 50 Yes Take by mouth. [facility] aspirin 81 mg EC tablet 07-31 00:00: 00 Yes [id number] 81mg Take 1 tablet by mouth daily. [facility] vit w/iron fumarate and FA ( VITAMIN WITH MINERALS) tablet 07-31 00:00: 00 Yes [id number] 1{tbl} Take 1 tablet by mouth daily. [facility] omeprazole 20 mg TbLD 07-31 00:00: 00 Yes [id number] 1{tbl} Take 1 tablet by mouth daily. [facility] proMETHazin e 12.5 mg tablet 06-30 19:46: 04 06-30 00:00 :00 No 12.5mg Take 12.5 mg by mouth every 4 (four) hours as needed. [facility] proMETHazin e 12.5 mg tablet 04-27 17:47: 42 Yes 12.5mg Take 12.5 mg by mouth every 4 (four) hours as needed. [facility] acetaminoph en (TYLENOL ORAL) 04-27 17:46: 18 Yes Take by mouth. [facility] ketoconazol e 2 % cream 04-27 00:00: 00 06-30 00:00 :00 No [id number] Apply to area(s) 2 (two) times daily. [facility] triamcinolo ne acetonide 0.1 % cream 04-27 00:00: 00 06-30 00:00 :00 No [id number] Apply to area(s) 2 (two) times daily. [facility] famotidine 20 mg tablet 423 00:00: 00 Yes [id number] 20mg Take 1 tablet by mouth 2 (two) times daily. [facility] promethazin e 6.25 mg/5 mL solution 14 00:00: 00 04-14 04:59 :00 No 25mg Take 20 mL by mouth every 6 (six) hours as needed for Nausea and Vomiting (N/V) for up to 30 days. [facility] PNV no.95/mily us fum/folic ac ( ORAL) 03-02 14:22: 38 03-02 00:00 :00 No Take by mouth. [facility] calcium carbonate (TUMS ORAL) 03-02 14:22: 12 03-02 00:00 :00 No Take by mouth. [facility] acetaminoph en (TYLENOL ORAL) 03-02 14:00: 10 Yes Take by mouth. [facility] PNV 102-iron-fo late 1-dss-dha (VITAFOL FE+, WITH DOCUSATE,) 90 mg iron-1 mg -50 mg-200 mg Cap 03-02 00:00: 00 07-31 00:00 :00 No [id number] Take 1 TAB-CAP/M2 by mouth daily. [facility] PNV no.95/mily us fum/folic ac ( ORAL) 03-02 18:22: 13 Yes Take by mouth. [facility] calcium carbonate (TUMS ORAL) 03-02 18:22: 13 Yes Take by mouth. [facility] docusate calcium 240 mg capsule 02-19 00:00: 00 03-02 00:00 :00 No [id number] 240mg Take 1 capsule by mouth once daily as needed for Constipati on. [facility] ferrous sulfate 325 mg (65 mg iron) tablet 02-19 00:00: 00 03-02 00:00 :00 No [id number] 325mg Take 1 tablet by mouth 2 (two) times daily. [facility] ibuprofen 600 mg tablet 02-19 00:00: 00 03-02 00:00 :00 No [id number] 600mg Take 1 tablet by mouth every 6 (six) hours as needed for Pain (scale 1-3) or Pain (scale 4-6) (Pain). Take with food or milk. [facility] HYDROcodone -acetaminop hen 5-325 mg tablet 02-19 00:00: 00 03-02 00:00 :00 No [id number] 1{tbl} Take 1 tablet by mouth every 6 (six) hours as needed for Pain (scale 4-6) or Pain (scale 7-10). [facility] Macrobid 100 mg capsule Take 1 capsule every 12 hours by oral route. Macrobid 100 mg capsule Take 1 capsule every 12 hours by oral route. No 1capsul e(s) Q12H Macrobid 100 mg capsule Take 1 capsule every 12 hours by oral route. [facility] pantoprazol e 40 mg tablet,maris yed release Take 1 tablet every day by oral route. pantoprazol e 40 mg tablet,maris yed release Take 1 tablet every day by oral route. No 1 Q1D pantoprazo le 40 mg tablet,del ayed release Take 1 tablet every day by oral route. [facility] Vitafol-One 29 mg iron-1 mg-200 mg capsule Take 1 capsule every day by oral route. Vitafol-One 29 mg iron-1 mg-200 mg capsule Take 1 capsule every day by oral route. No 1capsul e(s) Q1D Vitafol-On e 29 mg iron-1 mg-200 mg capsule Take 1 capsule every day by oral route. [facility] amoxicillin 500 mg capsule amoxicillin 500 mg capsule No amoxicilli n 500 mg capsule [facility] Macrobid 100 mg capsule Take 1 capsule every 12 hours by oral route. Macrobid 100 mg capsule Take 1 capsule every 12 hours by oral route. No 1capsul e(s) Q12H Macrobid 100 mg capsule Take 1 capsule every 12 hours by oral route. [facility] pantoprazol e 40 mg tablet,maris yed release Take 1 tablet every day by oral route. pantoprazol e 40 mg tablet,maris yed release Take 1 tablet every day by oral route. No 1 Q1D pantoprazo le 40 mg tablet,del ayed release Take 1 tablet every day by oral route. [facility] Vitafol-One 29 mg iron-1 mg-200 mg capsule Take 1 capsule every day by oral route. Vitafol-One 29 mg iron-1 mg-200 mg capsule Take 1 capsule every day by oral route. No 1capsul e(s) Q1D Vitafol-On e 29 mg iron-1 mg-200 mg capsule Take 1 capsule every day by oral route. [facility] Vital Signs Vital Name Observation Time Observation Value Comments S ource BP Diastolic 2022-01-23 00:00:00 82 mm[Hg] [facility] Height 2022-01-23 00:00:00 61 [in_i] [facility] BMI (Body Mass Index) 2022-01-23 00:00:00 49.1 kg/m2 [facility] BP Systolic 2022-01-23 00:00:00 132 mm[Hg] [facility] Body Weight 2022-01-23 00:00:00 260 [lb_av] [facility] BP Diastolic 2022-01-09 00:00:00 80 mm[Hg] [facility] Height 2022-01-09 00:00:00 61 [in_i] [facility] BMI (Body Mass Index) 2022-01-09 00:00:00 48.1 kg/m2 [facility] BP Systolic 2022-01-09 00:00:00 112 mm[Hg] [facility] Body Weight 2022-01-09 00:00:00 254.6 [lb_av] [facility] BMI (Body Mass Index) 2022-01-02 00:00:00 48.3 kg/m2 [facility] BP Systolic 2022-01-02 00:00:00 126 mm[Hg] [facility] Body Weight 2022-01-02 00:00:00 255.6 [lb_av] [facility] BP Diastolic 2022-01-02 00:00:00 84 mm[Hg] [facility] Height 2022-01-02 00:00:00 61 [in_i] [facility] BP Diastolic 2021-12-19 00:00:00 70 mm[Hg] [facility] Height 2021-12-19 00:00:00 61 [in_i] [facility] BMI (Body Mass Index) 2021-12-19 00:00:00 48 kg/m2 [facility] BP Systolic 2021-12-19 00:00:00 114 mm[Hg] [facility] Body Weight 2021-12-19 00:00:00 254 [lb_av] [facility] Systolic blood pressure 2021-07-31 16:38:00 108 mm[Hg] [facility] Diastolic blood pressure 2021-07-31 16:38:00 80 mm[Hg] [facility] Heart rate 2021-07-31 16:38:00 89 /min [facility] Body temperature 2021-07-31 16:38:[address] [facility] Respiratory rate 2021-07-31 16:38:00 20 /min [facility] Body height 2021-07-31 16:38:00 157.5 cm [facility] Body weight 2021-07-31 16:38:00 116.83 kg [facility] BMI 2021-07-31 16:38:00 47.11 kg/m2 [facility] Systolic blood pressure 2020-08-24 17:56:00 122 mm[Hg] [facility] Diastolic blood pressure 2020-08-24 17:56:00 75 mm[Hg] [facility] Heart rate 2020-08-24 17:56:00 109 /min [facility] Body temperature 2020-08-24 17:56:[address] [facility] Respiratory rate 2020-08-24 17:56:00 18 /min [facility] Body height 2020-08-24 17:56:00 157.5 cm [facility] Body weight 2020-08-24 17:56:00 124.467 kg [facility] BMI 2020-08-24 17:56:00 50.19 kg/m2 [facility] Systolic blood pressure 2020-08-24 17:56:00 122 mm[Hg] [facility] Diastolic blood pressure 2020-08-24 17:56:00 75 mm[Hg] [facility] Heart rate 2020-08-24 17:56:00 109 /min [facility] Body temperature 2020-08-24 17:56:[address] [facility] Respiratory rate 2020-08-24 17:56:00 18 /min [facility] Body height 2020-08-24 17:56:00 157.5 cm [facility] Body weight 2020-08-24 17:56:00 124.467 kg [facility] BMI 2020-08-24 17:56:00 50.19 kg/m2 [facility] Systolic blood pressure 2020-06-30 18:26:00 126 mm[Hg] [facility] Diastolic blood pressure 2020-06-30 18:26:00 81 mm[Hg] [facility] Heart rate 2020-06-30 18:26:00 89 /min [facility] Body temperature 2020-06-30 18:26:[address] [facility] Respiratory rate 2020-06-30 18:26:00 18 /min [facility] Body height 2020-06-30 18:26:00 154.9 cm [facility] Body weight 2020-06-30 18:26:00 124.739 kg [facility] BMI 2020-06-30 18:26:00 51.96 kg/m2 [facility] Systolic blood pressure 2020-06-30 18:26:00 126 mm[Hg] [facility] Diastolic blood pressure 2020-06-30 18:26:00 81 mm[Hg] [facility] Heart rate 2020-06-30 18:26:00 89 /min [facility] Body temperature 2020-06-30 18:26:[address] [facility] Respiratory rate 2020-06-30 18:26:00 18 /min [facility] Body height 2020-06-30 18:26:00 154.9 cm [facility] weight 2020-06-30 18:26:00 124.739 kg [facility] BMI 2020-06-30 18:26:00 51.96 kg/m2 [facility] Systolic blood pressure 2020-05-22 15:53:00 132 mm[Hg] [facility] Diastolic blood pressure 2020-05-22 15:53:00 82 mm[Hg] [facility] Heart rate 2020-05-22 15:53:00 84 /min [facility] Body temperature 2020-05-22 15:53:[address] [facility] Respiratory rate 2020-05-22 15:53:00 18 /min [facility] Body height 2020-05-22 15:53:00 154.9 cm [facility] Body weight 2020-05-22 15:53:00 127.642 kg [facility] BMI 2020-05-22 15:53:00 53.17 kg/m2 [facility] Systolic blood pressure 2020-05-22 15:53:00 132 mm[Hg] [facility] Diastolic blood pressure 2020-05-22 15:53:00 82 mm[Hg] [facility] Heart rate 2020-05-22 15:53:00 84 /min [facility] Body temperature 2020-05-22 15:53:[address] [facility] Respiratory rate 2020-05-22 15:53:00 18 /min [facility] Body height 2020-05-22 15:53:00 154.9 cm [facility] Body weight 2020-05-22 15:53:00 127.642 kg [facility] BMI 2020-05-22 15:53:00 53.17 kg/m2 [facility] Systolic blood pressure 2020-04-27 17:45:00 138 mm[Hg] [facility] Diastolic blood pressure 2020-04-27 17:45:00 86 mm[Hg] [facility] Heart rate 2020-04-27 17:45:00 113 /min [facility] Body temperature 2020-04-27 17:45:[address] [facility] Respiratory rate 2020-04-27 17:45:00 18 /min [facility] Body height 2020-04-27 17:45:00 154.9 cm [facility] Body weight 2020-04-27 17:45:00 130.455 kg [facility] BMI 2020-04-27 17:45:00 54.34 kg/m2 [facility] Systolic blood pressure 2020-04-27 17:45:00 138 mm[Hg] [facility] Diastolic blood pressure 2020-04-27 17:45:00 86 mm[Hg] [facility] Heart rate 2020-04-27 17:45:00 113 /min [facility] Body temperature 2020-04-27 17:45:[address] [facility] Respiratory rate 2020-04-27 17:45:00 18 /min [facility] Body height 2020-04-27 17:45:00 154.9 cm [facility] Body weight 2020-04-27 17:45:00 130.455 kg [facility] BMI 2020-04-27 17:45:00 54.34 kg/m2 [facility] Body height 2020-03-02 13:57:00 154.9 cm [facility] Procedures Procedure Date / Time Performed Performing Clinician Source [id number] 2022-01-25 00:00:00 [facility] [id number] 2022-01-25 00:00:00 [facility] [id number] 2022-01-25 00:00:00 [facility] EXTERNAL PROVIDER RECORDS 2021-12-20 06:01:00 Do ctor Unassigned, [place] [facility] EXTERNAL PROVIDER RECORDS 2021-10-18 06:01:00 Do ctor Unassigned, [place] [facility] SCANNED LAB RESULTS 2021-07-31 05:01:00 Doctor Abram brenner, [place] [facility] POCT URINALYSIS W/O SPECIFIC GRAVITY 2021-07-31 00:00:[address] [facility] ASSIGNMENT OF BENEFITS 2021-06-12 19:26:47 Docto r Unassigned, [place] [facility] [id number] 2020-11-03 00:00:00 [facility] DME/SUPPLY JUSTIFICATION 2020-10-11 06:01:00 Doc tor Unassigned, [place] [facility] AUTHORIZATION FOR RELEASE OF PHI 2020-09-13 05:01:00 Doctor Unassigned, [place] [facility] TDAP VACCINE, >11 YRS, IM 2020-08-24 18:00:[address] [facility] FLU VACC ([id number]), 6+ MONTHS, IM, QUAD 2020-08-24 18:00:[address] [facility] POCT URINALYSIS W/O SPECIFIC GRAVITY 2020-08-24 00:00:[address] [facility] EXTERNAL PROVIDER RECORDS 2020-06-27 05:01:00 Do ctor Unassigned, [place] [facility] AUTHORIZATION FOR RELEASE OF PHI 2020-06-13 05:01:00 Doctor Unassigned, [place] [facility] DME/SUPPLY JUSTIFICATION 2020-05-31 05:01:00 Doc tor Unassigned, [place] [facility] POCT URINALYSIS W/O SPECIFIC GRAVITY 2020-05-22 15:55:[address] [facility] AUTHORIZATION TO RELEASE PHI TO [facility] 2020-05-22 05:01:00 Doctor Unassigned, [place] [facility] REFERRAL- REQUEST/RESPONSE 2020-05-05 05:01:00 Doctor Unassigned, [place] [facility] <14 WEEKS US LIMITED 2020-04-27 19:53:[address] [facility] POCT URINALYSIS W/O SPECIFIC GRAVITY 2020-04-27 00:00:[address] [facility] AGREEMENTS AUTHORIZATIONS AND IRREVOCABLE ASSIGNMENTS (FORM 2001) 2020-03-06 05:01:00 Doctor Unassigned, [place] [facility] Delivery [facility] Plan of Care Planned Activity Planned Date Details Comments Source Diagnostic Test Pending 2022-01-23 00:00:00 urinalysis, dipstick [code = urinalysis, dipstick] [facility] Encounters Start Date/Time End Date/Time Encounter Type Admission Type Attending [facility] Care Facility Care Department Encounter ID Source 2022-01-25 08:16:00 2022-01-27 11:35:00 Inpatient KAVEH Ethan Rafael [facility] [id number] [address] [facility] 2022-01-24 02:59:00 2022-01-24 02:59:00 Outpatient [facility]_ [place]_G PRIV PRIV [id number] [facility] 2022-01-23 10:42:00 2022-01-23 10:42:00 Outpatient [facility]_ [place]_G PRIV PRIV [id number] [facility] 2022-01-23 00:00:00 2022-01-23 00:00:00 Rafael Long MD: [address], [address], [place] [address] , Ph. [facility] - [facility]_ [place] Office* [id number] [facility] 2022-01-23 00:00:00 2022-01-23 00:00:00 Outpatient EthanRafael [facility] PRIV [id number] 2022-01-17 10:53:00 2022-01-17 10:53:00 Outpatient [facility]_ [place]_G PRIV PRIV [id number] [facility] 2022-01-10 04:28:00 2022-01-10 04:28:00 Outpatient [facility]_ [place]_G PRIV PRIV [id number] [facility] 2022-01-09 04:14:00 2022-01-09 04:14:00 Outpatient [facility]_ Shelaicha_G PRIV PRIV [id number] [facility] 2022-01-09 00:00:00 2022-01-09 00:00:00 Outpatient Long Rafaeldonell King [facility] PRIV [id number] 2022-01-09 00:00:00 2022-01-09 00:00:00 Rafael Long MD: [address], [address], [place] [address] , Ph. [facility] - [facility]_ [facility] Office* [id number] [facility] 2022-01-04 06:28:00 2022-01-04 06:28:00 Outpatient [facility]_ Ethan_G PRIV PRIV [id number] [facility] 2022-01-03 04:23:00 2022-01-03 04:23:00 Outpatient [facility]_ Ethan_G PRIV PRIV [id number] [facility] 2022-01-02 10:54:00 2022-01-02 10:54:00 Outpatient [facility]_ Ethan_G PRIV PRIV [id number] [facility] 2022-01-02 00:00:00 2022-01-02 00:00:00 Outpatient Rafael Long [facility] [id number] 2022-01-02 00:00:00 2022-01-02 00:00:00 Rafael Long MD: [address] [place] [address], [facility] [address], [place] [address] , Ph. [facility] - GC_SWHAOMC_ Wing Office* [id number] [facility] 2022-01-01 06:28:00 2022-01-01 06:28:00 Outpatient GC_SWHAOMC_ Ethan_G PRIV PRIV [id number] [facility] 2021-12-26 02:55:00 2021-12-26 02:55:00 Outpatient GC_SWHAOMC_ Ethan_G PRIV PRIV [id number] [facility] 2021-12-26 00:00:00 2021-12-26 00:00:00 Rafael Long MD: [address] [place] [address], [facility] [address], [place] [address] , Ph. [facility] GC_S[facility]AOM[facility]_ Wing Office* [id number] [facility] 2021-12-24 16:20:00 2021-12-24 19:37:00 Emergency EM [facility] [id number] [facility] 2021-12-20 04:48:00 2021-12-20 04:48:00 Outpatient GC_ABELC_ Ethan_G PRIV PRIV [id number] [facility] 2021-12-20 00:00:00 2021-12-20 00:00:00 Orders Only Doctor Unassigned, [place] [facility] 1.2.840.114 350.1.13.10 4.2.7.2.686 [id number] [id number] [facility] 2021-12-19 10:09:00 2021-12-19 10:09:00 Outpatient GC_ABELC_ Ethan_G PRIV PRIV [id number] [facility] 2021-12-19 00:00:00 2021-12-19 00:00:00 Outpatient Rafael Long [facility] [id number] 2021-12-19 00:00:00 2021-12-19 00:00:00 Rafael Long MD: [address], [address], [place] [address] , Ph. [facility] GC_SWCHEOMC_ [place] Office* [id number] [facility] 2021-12-03 05:54:00 2021-12-03 05:54:00 Outpatient GC_EANOMC_ Ethan_G PRIV PRIV [id number] [facility] 2021-11-15 10:04:00 2021-11-15 10:04:00 Outpatient GC_EANOMC_ Ethan_G PRIV PRIV [id number] [facility] 2021-11-08 03:09:00 2021-11-08 03:09:00 Outpatient GC_BOLAHAOMC_ Ethan_G PRIV PRIV [id number] [facility] 2021-11-07 10:30:00 2021-11-07 10:30:00 Outpatient GC_SWHAOMC_ Ethan_G [facility] [id number] [facility] 2021-10-19 07:29:00 2021-10-19 07:29:00 Outpatient SYLWIA_SWCHEOMBradley_ Ethan_Jahaira [facility] [id number] [facility] 2021-10-18 00:00:00 2021-10-18 00:00:00 Orders Only Doctor Unassigned, [place] [facility] 1.2840.114 350.1.13.10 4.2.7.2.686 [id number] [id number] [facility] 2021-09-17 10:30:00 2021-09-17 10:30:00 Outpatient P [facility] [id number] [facility] 2021-08-28 10:30:00 2021-08-28 10:30:00 Outpatient R FABI SUGGS [facility] [id number] [facility] 2021-08-09 00:00:00 2021-08-09 00:00:00 Telephone Ifeanyi Fabi [facility] 1.840.114 350.1.13.10 4.2.7.2.686 [id number] [facility] 2021-08-08 00:00:00 2021-08-08 00:00:00 Telephone Fabi Suggs [facility] 1.2840.114 350.1.13.10 4.2.7.2.686 [id number] [facility] 2021-08-02 00:00:00 2021-08-02 00:00:00 Telephone Fabi Suggs [facility] 1.2840.114 350.1.13.10 4.2.7.2.686 [id number] 134 [id number] [facility] 2021-08-01 00:00:00 2021-08-01 00:00:00 Telephone Ifeanyi Fabi [facility] 1.2840.114 350.1.13.10 4.2.7.2.686 [id number] [facility] 2021-07-31 12:47:20 2021-07-31 13:02:20 Publisher Assistant Visit Pob, Adc Lab Main Fabi Suggs [facility] nal Building 1.2840.114 350.1.13.10 4.2.7.2.686 [id number] [facility] 2021-07-31 12:47:20 2021-07-31 13:02:20 Publisher Assistant Visit Pob, [facility] Lab Main Ifeanyi Fabi [facility] Building 1.2840.114 350.1.13.10 4.2.7.2.686 [id number] [facility] 2021-07-31 11:22:15 2021-07-31 12:08:05 Routine Visit Fabi Suggs [facility] 1.2840.114 350.1.13.10 4.2.7.2.686 [id number] 134 [id number] [facility] 2021-07-31 11:15:00 2021-07-31 11:15:00 Outpatient FABI NATARAJAN [facility] [id number] [facility] 2021-07-31 00:00:00 2021-07-31 00:00:00 Orders Only Doctor Unassigned, [place] [facility] 1.2840.114 350.1.13.10 4.2.7.2.686 [id number] [id number] [facility] 2021-06-19 13:00:00 2021-06-19 13:00:00 Outpatient FABI NATARAJAN [facility] [id number] [facility] 2021-06-12 14:30:00 2021-06-12 14:30:00 Outpatient LALA NATARAJANN [facility] [id number] [facility] 2021-06-12 00:00:00 2021-06-12 00:00:00 Orders Only Doctor Unassigned, [place] [facility] 1.2840.114 350.1.13.10 4.2.7.2.686 [id number] [id number] 2021-06-12 00:00:00 2021-06-12 00:00:00 Orders Only Doctor Unassigned, [place] [facility] 1.2840.114 350.1.13.10 4.2.7.2.686 [id number] [id number] [facility] 2020-11-03 11:00:00 2020-11-07 05:36:37 Inpatient Alexandra Garcia [facility] [id number] [facility] 2020-10-19 15:07:00 2020-10-20 20:18:16 Inpatient Alexandra Garcia [facility] [id number] [facility] 2020-10-11 00:00:00 2020-10-11 00:00:00 Case Management Saida Oliveira [facility] 1.2840.114 350.1.13.10 4.2.7.2.686 [id number] 134 [id number] 2020-10-11 00:00:00 2020-10-11 00:00:00 Orders Only Doctor Unassigned, [place] [facility] 1.2840.114 350.1.13.10 4.2.7.2.686 [id number] 009 [id number] 2020-10-11 00:00:00 2020-10-11 00:00:00 Case Management Saida Oliveira [facility] 1.2840.114 350.1.13.10 4.2.7.2.686 [id number] 134 [id number] [facility] 2020-10-11 00:00:00 2020-10-11 00:00:00 Orders Only Doctor Unassigned, [place] [facility] 1.2840.114 350.1.13.10 4.2.7.2.686 [id number] [id number] [facility] 2020-09-15 15:00:00 2020-09-15 15:00:00 Outpatient P [facility] [id number] [facility] 2020-09-15 10:00:00 2020-09-15 10:00:00 Outpatient Alexandra Garcia [facility] [id number] [facility] 2020-09-13 00:00:00 2020-09-13 00:00:00 Orders Only Doctor Unassigned, [place] [facility] 1.2.840.114 350.1.13.10 4.2.7.2.686 [id number] [id number] 2020-09-13 00:00:00 2020-09-13 00:00:00 Orders Only Doctor Unassigned, [place] [facility] 1.2840.114 350.1.13.10 4.2.7.2.686 [id number] [facility] 2020-09-07 15:15:00 2020-09-07 15:15:00 [facility] [id number] [facility] 2020-09-01 08:45:00 2020-09-01 08:45:00 Outpatient R [facility] [id number] [facility] 2020-08-24 12:35:45 2020-08-24 13:50:15 Routine Visit Oliveira Saida [facility] 1.2840.114 350.1.13.10 4.2.7.2.686 [id number] 134 [id number] 2020-08-24 12:35:45 2020-08-24 13:50:15 Routine Visit Saida Oliveira [facility] 1.2840.114 350.1.13.10 4.2.7.2.686 [id number] 134 [id number] [facility] 2020-08-24 13:00:00 2020-08-24 13:00:00 Outpatient R OLIVEIRA SAIDA [facility] [id number] [facility] 2020-08-15 14:45:00 2020-08-15 14:45:00 Outpatient SAIDA FINLEY [facility] [id number] [facility] 2020-08-04 14:00:00 2020-08-04 14:00:00 Outpatient SAIDA FINLEY [facility] [id number] [facility] 2020-07-28 14:00:00 2020-07-28 14:00:00 Outpatient SAIDA FINLEY [facility] [id number] [facility] 2020-07-28 10:30:00 2020-07-28 10:30:00 Outpatient SAIDA FINLEY [facility] [id number] [facility] 2020-07-14 09:06:31 2020-07-14 10:21:31 Publisher Assistant [facility] 1.2.840.114 350.1.13.10 4.2.7.2.686 [id number] 2020-07-14 09:06:31 2020-07-14 10:21:31 Publisher Assistant Visit Ultrasound, [facility] Balbina Buckley [facility] DISPATCHER TOW TRUCK [facility] 1.2.840.114 350.1.13.10 4.2.7.2.686 [id number] [facility] 2020-07-14 09:15:00 2020-07-14 09:15:00 Outpatient P [facility] [id number] [facility] 2020-06-30 13:10:39 2020-06-30 14:01:12 Routine Visit Tee Saida [facility] 1.2.840.114 350.1.13.10 4.2.7.2.686 [id number] 134 [id number] 2020-06-30 13:10:39 2020-06-30 14:01:12 Routine Visit Tee Saida [facility] Building 1.2.840.114 350.1.13.10 4.2.7.2.686 [id number] [facility] 2020-06-30 13:15:00 2020-06-30 13:15:00 Outpatient R SAIDA OLIVEIRA [facility] [id number] [facility] 2020-06-29 00:00:00 2020-06-29 00:00:00 Telephone Saida Oliveira [facility] 1.2.840.114 350.1.13.10 4.2.7.2.686 [id number] 134 [id number] 2020-06-29 00:00:00 2020-06-29 00:00:00 Telephone Saida Oliveira [facility] 1.2.840.114 350.1.13.10 4.2.7.2.686 [id number] [facility] 2020-06-27 14:00:00 2020-06-27 14:00:00 Outpatient R SAIDA OLIVEIRA [facility] [id number] [facility] 2020-06-27 00:00:00 2020-06-27 00:00:00 Orders Only Doctor Unassigned, [place] [facility] 1.2.840.114 350.1.13.10 4.2.7.2.686 [id number] [id number] 2020-06-27 00:00:00 2020-06-27 00:00:00 Orders Only Doctor Unassigned, [place] [facility] 1.2.840.114 350.1.13.10 4.2.7.2.686 [id number] [id number] [facility] 2020-06-26 10:30:00 2020-06-26 10:30:00 Outpatient P [facility] [id number] [facility] 2020-06-20 13:45:00 2020-06-20 13:45:00 Outpatient R SAIDA OLIVEIRA [facility] [id number] [facility] 2020-06-19 11:00:00 2020-06-19 11:00:00 Outpatient R SAIDA OLIVEIRA [facility] [id number] [facility] 2020-06-15 00:00:00 2020-06-15 00:00:00 Case Management Saida Oliveira [facility] Building 1.2.840.114 350.1.13.10 4.2.7.2.686 [id number] 134 [id number] 2020-06-15 00:00:00 2020-06-15 00:00:00 Case Management Saida Oliveira [facility] Building 1.2.840.114 350.1.13.10 4.2.7.2.686 [id number] 134 [id number] [facility] 2020-06-13 00:00:00 2020-06-13 00:00:00 Orders Only Doctor Unassigned, [place] [facility] 1.2.840.114 350.1.13.10 4.2.7.2.686 [id number] [id number] 2020-06-13 00:00:00 2020-06-13 00:00:00 Orders Only Doctor Unassigned, [place] [facility] 1.2.840.114 350.1.13.10 4.2.7.2.686 [id number] [id number] [facility] 2020-05-31 00:00:00 2020-05-31 00:00:00 Case Management Saida Oliveira [facility] Building 1.2.840.114 350.1.13.10 4.2.7.2.686 [id number] 134 [id number] 2020-05-31 00:00:00 2020-05-31 00:00:00 Case Management Saida Oliveira [facility] Building 1.2.840.114 350.1.13.10 4.2.7.2.686 [id number] 134 [id number] 2020-05-31 00:00:2020-05-31 00:00:00 Orders Only Doctor Unassigned, [place] [facility] 1.2.840.114 350.1.13.10 4.2.7.2.686 [id number] [id number] 2020-05-31 00:00:00 2020-05-31 00:00:00 Case Management Saida Oliveira [facility] Building 1.2.840.114 350.1.13.10 4.2.7.2.686 [id number] 134 [id number] [facility] 2020-05-31 00:00:00 2020-05-31 00:00:00 Case Management Saida Oliveira [facility] Building 1.2.840.114 350.1.13.10 4.2.7.2.686 [id number] 134 [id number] [facility] 2020-05-31 00:00:00 2020-05-31 00:00:00 Orders Only Doctor Unassigned, [place] [facility] 1.2.840.114 350.1.13.10 4.2.7.2.686 [id number] [id number] [facility] 2020-05-25 00:00:00 2020-05-25 00:00:00 Case Management Karolina Burroughs [facility] Building 1.2.840.114 350.1.13.10 4.2.7.2.686 [id number] 134 [id number] 2020-05-25 00:00:00 2020-05-25 00:00:00 Case Management Karolina Burroughs [facility] Building 1.2.840.114 350.1.13.10 4.2.7.2.686 [id number] 134 [id number] [facility] 2020-05-23 00:00:00 2020-05-23 00:00:00 Case Management Karolina Burroughs [facility] Building 1.2.840.114 350.1.13.10 4.2.7.2.686 [id number] 134 [id number] 2020-05-23 00:00:00 2020-05-23 00:00:00 Case Management Karolina Burroughs [facility] 1.2.840.114 350.1.13.10 4.2.7.2.686 [id number] 134 [id number] [facility] 2020-05-22 10:37:27 2020-05-22 11:13:02 [facility] 1.2.840.114 350.1.13.10 4.2.7.2.686 [id number] 134 [id number] 2020-05-22 10:37:27 2020-05-22 11:13:02 [facility] 1.2.840.114 350.1.13.10 4.2.7.2.686 [id number] 134 [id number] [facility] 2020-05-22 10:30:00 2020-05-22 10:30:00 [facility] [id number] [facility] 2020-05-22 00:00:00 2020-05-22 00:00:00 Orders Only Doctor Unassigned, [place] [facility] 1.2.840.114 350.1.13.10 4.2.7.2.686 [id number] [id number] 2020-05-22 00:00:00 2020-05-22 00:00:00 Orders Only Doctor Unassigned, [place] [facility] 1.2.840.114 350.1.13.10 4.2.7.2.686 [id number] [id number] [facility] 2020-05-08 08:45:00 2020-05-08 08:45:00 Outpatient R [facility] [id number] [facility] 2020-05-08 00:00:00 2020-05-08 00:00:00 Telephone Saida Oliveira [facility] Building 1.2.840.114 350.1.13.10 4.2.7.2.686 [id number] 134 [id number] 2020-05-08 00:00:00 2020-05-08 00:00:00 Telephone Saida Oliveira [facility] Building 1.2.840.114 350.1.13.10 4.2.7.2.686 [id number] 134 [id number] [facility] 2020-05-05 00:00:00 2020-05-05 00:00:00 Telephone Saida Oliveira [facility] Building 1.2.840.114 350.1.13.10 4.2.7.2.686 [id number] 134 [id number] 2020-05-05 00:00:00 2020-05-05 00:00:00 Orders Only Doctor Unassigned, [place] [facility] 1.2.840.114 350.1.13.10 4.2.7.2.686 [id number] [id number] 2020-05-05 00:00:00 2020-05-05 00:00:00 Telephone Saida Oliveira [facility] 1.2.840.114 350.1.13.10 4.2.7.2.686 [id number] 134 [id number] [facility] 2020-05-05 00:00:00 2020-05-05 00:00:00 Orders Only Doctor Unassigned, [place] [facility] 1.2.840.114 350.1.13.10 4.2.7.2.686 [id number] [id number] [facility] 2020-05-03 00:00:00 2020-05-03 00:00:00 Telephone Saida Oliveira [facility] 1.2.840.114 350.1.13.10 4.2.7.2.686 [id number] 134 [id number] 2020-05-03 00:00:00 2020-05-03 00:00:00 Telephone Saida Oliveira [facility] Carmen Juan Downingio nal Building 1.2.840.114 350.1.13.10 4.2.7.2.686 [id number] 134 [id number] [facility] 2020-04-27 13:29:16 2020-04-27 13:44:16 Publisher Assistant Visit 2, Adc Lab [facility] Jacque Downingio nal Building 1.2.840.114 350.1.13.10 4.2.7.2.686 [id number] 2020-04-27 13:29:16 2020-04-27 13:44:16 Publisher Assistant Visit 2, Adc Lab Saida Oliveira [facility] Jacque Downingio nal Building 1.2.840.114 350.1.13.10 4.2.7.2.686 [id number] [facility] 2020-04-27 12:31:12 2020-04-27 13:22:57 Routine Visit Saida Oliveira [facility] Jacque Issaessio nal Building 1.2.840.114 350.1.13.10 4.2.7.2.686 [id number] 134 [id number] 2020-04-27 12:31:12 2020-04-27 13:22:57 Routine Visit Saida Oliveira [facility] Jacque Downingio nal Building 1.2.840.114 350.1.13.10 4.2.7.2.686 [id number] 134 [id number] [facility] 2020-04-27 13:00:00 2020-04-27 13:00:00 Outpatient R SAIDA OLIVEIRA [facility] [id number] [facility] 2020-04-18 13:00:00 2020-04-18 13:00:00 Outpatient R SAIDA OLIVEIRA [facility] [id number] [facility] 2020-04-18 08:10:01 2020-04-18 08:25:01 Telemedici ne Visit Saida Oliveira [facility] 1.2.840.114 350.1.13.10 4.2.7.2.686 [id number] 134 [id number] 2020-04-18 08:10:01 2020-04-18 08:25:01 Telemedici ne Visit Saida Oliveira [facility] Carmen Juan [facility] Building 1.2.840.114 350.1.13.10 4.2.7.2.686 [id number] 134 [id number] [facility] 2020-03-23 14:03:38 2020-03-23 15:16:55 Telemedici ne Visit Saida Oliveira [facility] Carmen Juan [facility] Building 1.2.840.114 350.1.13.10 4.2.7.2.686 [id number] 134 [id number] 2020-03-23 14:03:38 2020-03-23 15:16:55 Telemedici ne Visit Saida Oliveira [facility] Building 1.2.840.114 350.1.13.10 4.2.7.2.686 [id number] 134 [id number] [facility] 2020-03-23 14:15:00 2020-03-23 14:15:00 Outpatient R SAIDA OLIVEIRA [facility] [id number] [facility] 2020-03-21 00:00:00 2020-03-21 00:00:00 Telephone Saida Oliveira [facility] 1.2.840.114 350.1.13.10 4.2.7.2.686 [id number] 134 [id number] 2020-03-21 00:00:00 2020-03-21 00:00:00 Telephone Saida Oliveira [facility] 1.2.840.114 350.1.13.10 4.2.7.2.686 [id number] 134 [id number] [facility] 2020-03-14 00:00:00 2020-03-14 00:00:00 Telephone Oliveira, Saida Cam [facility] Building 1.2.840.114 350.1.13.10 4.2.7.2.686 [id number] 134 [id number] 2020-03-14 00:00:00 2020-03-14 00:00:00 Telephone Saida Oliveira [facility] Building 1.2.840.114 350.1.13.10 4.2.7.2.686 [id number] 134 [id number] [facility] 2020-03-07 14:30:00 2020-03-07 14:30:00 Outpatient R ALVINYUKIYUNIERAJIT [facility] [id number] [facility] 2020-03-06 11:40:07 2020-03-06 11:55:07 Publisher Assistant Visit 2, Adc Lab [facility] 1.2.840.114 350.1.13.10 4.2.7.2.686 [id number] 353 [id number] 2020-03-06 11:40:07 2020-03-06 11:55:07 Publisher Assistant Visit 2, Adc Lab Saida Oliveira [facility] Building 1.2.840.114 350.1.13.10 4.2.7.2.686 [id number] [facility] 2020-03-06 08:00:00 2020-03-06 08:00:00 Outpatient R SAIDA OLIVEIRA [facility] [id number] [facility] 2020-03-06 00:00:00 2020-03-06 00:00:00 Telephone Saida Oliveira [facility] Building 1.2.840.114 350.1.13.10 4.2.7.2.686 [id number] 134 [id number] 2020-03-06 00:00:00 2020-03-06 00:00:00 Telephone Saida Oliveira [facility] Building 1.2.840.114 350.1.13.10 4.2.7.2.686 [id number] 134 [id number] 2020-03-06 00:00:00 2020-03-06 00:00:00 Orders Only Doctor Unassigned, [place] [facility] 1.2.840.114 350.1.13.10 4.2.7.2.686 [id number] [id number] 2020-03-06 00:00:00 2020-03-06 00:00:00 Telephone Saida Oliveira [facility] Building 1.2840.114 350.1.13.10 4.2.7.2.686 [id number] 134 [id number] [facility] 2020-03-06 00:00:00 2020-03-06 00:00:00 Telephone Saida Oliveira [facility] Building 1.2840.114 350.1.13.10 4.2.7.2.686 [id number] 134 [id number] [facility] 2020-03-06 00:00:00 2020-03-06 00:00:00 Orders Only Doctor Unassigned, [place] [facility] 1.2840.114 350.1.13.10 4.2.7.2.686 [id number] 009 [id number] [facility] 2020-03-03 08:30:00 2020-03-03 08:30:00 Outpatient R [facility] [id number] [facility] 2020-03-03 00:00:00 2020-03-03 00:00:00 Telephone Saida Oliveira [facility] Building 1.2840.114 350.1.13.10 4.2.7.2.686 [id number] 134 [id number] 2020-03-03 00:00:00 2020-03-03 00:00:00 Telephone Saida Oliveira [facility] Building 1.2840.114 350.1.13.10 4.2.7.2.686 [id number] 134 [id number] [facility] 2020-03-02 15:37:16 2020-03-02 15:52:16 Publisher Assistant Visit 2, [facility] 1.2.840.114 350.1.13.10 4.2.7.2.686 [id number] 353 [id number] 2020-03-02 15:37:16 2020-03-02 15:52:16 Publisher Assistant Visit 2, [facility] Saida Oliveira [facility] 1.2.840.114 350.1.13.10 4.2.7.2.686 [id number] [facility] 2020-03-02 08:26:08 2020-03-02 09:50:37 Telemedici ne Visit Saida Oliveira [facility] 1.2.840.114 350.1.13.10 4.2.7.2.686 [id number] [facility] 2020-03-02 09:00:00 2020-03-02 09:00:00 Outpatient R SAIDA OLIVEIRA [facility] [id number] [facility] 2020-03-02 00:00:00 2020-03-02 00:00:00 Telephone Saida Oliveira [facility] 1.2.840.114 350.1.13.10 4.2.7.2.686 [id number] 134 [id number] 2020-03-02 00:00:00 2020-03-02 00:00:00 Telephone Saida Oliveira [facility] 1.2.840.114 350.1.13.10 4.2.7.2.686 [id number] 134 [id number] [facility] 2020-02-28 00:00:00 2020-02-28 00:00:00 Telephone Ajit Bob [facility] DISPATCHER TOW [facility] 1.2.840.114 350.1.13.10 4.2.7.2.686 [id number] [facility] Results Test Description Test Time Test Comments Results Result Co mments Source HGB [id number] 08:20:00* Test Item Value Reference Range Interpretation Comme nts HEMOGLOBIN (test code = HGB) 9.5 g/dL 10.1-13.8 L HEMATOCRIT (test code = HCT) 28.9 % 32.5-41.8 L AG HEPATITIS B [id number] 13:37:00* Test Item Value Reference Range Interpretation Comme nts AG HEPATITIS B SURFACE (test code = HBSAG) NONREACTIVE NONREACTIVE AB HEPATITIS C [id number] 13:37:00* Test Item Value Reference Range Interpretation Comme nts AB HEPATITIS C (test code = HCVAB) NONREACTIVE NONREACTIVE SIGNAL TO CUTOFF (test code = CUTOFF) 0.10 <0.80 N AB [id number] 13:37:00* Test Item Value Reference Range Interpretation Comme nts AB TREPONEMA (test code = TREPAB) NONREACTIVE NONREACTIVE AB HIV 1 13:37:00* Test Item Value Reference Range Interpretation Comme nts AB HIV 1 2 (test code = BBS18BR) NONREACTIVE NONREACTIVE Done by [employer] HIV Ag/Ab Combo Screen COVID 19 Asymptomatic IH [id number] 13:07:00* Test Item Value Reference Range Interpretation Comme nts COVID 19 Asymptomatic IH AG (test code = COVNONPUIAG) NEGATIVE NEGATIVE This test has be en authorized only for the detection ofproteins from SARS-CoV-2, not for any other viruses orpathogens. Negative results should be treated as presumptive andconfirmed with a molecular assay, if necessary for patientmanagement. Negative results do not rule out COVID-19 andshould not be used as the sole basis for treatment orpatient management decisions, including infection controldecisions. Negative results should be considered in thecontext of a patient's recent exposures, history and thepresence of clinical signs and symptoms consistent withCOVID-19. This test has not been FDA cleared or approved; the test hasbeen authorized by FDA under an Emergency Use Authorization(EUA) for use by laboratories certified under the CLIA thatmeet the requirements to perform moderate, high or waivedcomplexity tests. This test is authorized for use at thePoint of Care (POC), i.e., in patient care settingsoperating under a [place] Certificate of Waiver, Certificate ofCompliance, or Certificate of Accreditation. This test is only authorized for the duration of thedeclaration that circumstances exist justifying theauthorization of emergency use of in vitro diagnostic testsfor detection and/or diagnosis of COVID-19 under Bfsaerm802(b)(1) of the Act, 21 U.S.C. 360bbb-3(b)(1), unless theauthorization is terminated or revoked sooner. CBC W/AUTO [id number] 12:05:00* Test Item Value Reference Range Interpretation Comme nts WHITE BLOOD CELL (test code = WBC) 9.8 K/mm3 6.5-12.3 N RED BLOOD CELL (test code = RBC) 3.93 M/mm3 3.51-4.69 N HEMOGLOBIN (test code = HGB) 11.5 g/dL 10.1-13.8 N HEMATOCRIT (test code = HCT) 34.5 % 32.5-41.8 N MEAN CELL VOLUME (test code = MCV) 87.8 fL 84.6-96.6 N MEAN CELL HGB (test code = MCH) 29.3 pg 27.3-33.9 N MEAN CELL HGB CONCETRATION ( test code = MCHC) 33.3 gm/dL 32.0-34.2 N RED CELL DISTRIBUTION WIDTH (test code = RDW) 13.1 % 12.2-16.3 N PLATELET COUNT (test code = PLT) 225 K/mm3 134-363 N MEAN PLATELET VOLUME (test c ode = MPV) 10.6 fL 9.2-12.7 N NEUTROPHIL % (test code = NT%) 72.1 % 57.9-77.3 N LYMPHOCYTE % (test code = LY%) 21.8 % 14.5-29.7 N MONOCYTE % (test code = MO%) 4.4 % 3.6-10.2 N EOSINOPHIL % (test code = EO%) 1.1 % 0.0-3.0 N BASOPHIL % (test code = BA%) 0.3 % 0.1-0.9 N NEUTROPHIL # (test code = NT#) 7.1 K/mm3 LYMPHOCYTE # (test code = LY#) 2.1 K/mm3 MONOCYTE # (test code = MO#) 0.4 K/mm3 EOSINOPHIL # (test code = EO#) 0.11 K/mm3 BASOPHIL # (test code = BA#) 0.0 K/mm3 RBC MORPHOLOGY REQUIRED (jono t code = RBCM) NORMAL NORMAL PLATELET MORPHOLOGY REQUIRED (test code = PLTMR) NORMAL NORMAL Urinalysis macro (dipstick) panel - [id number] 09:46:33* Test Item Value Reference Range Interpretation Comme nts Protein (test code = Protein) Negative Glucose (test code = Glucose) Negative [facility]inal[facility] macro (dipstick) panel - [id number] 10:14:54* Test Item Value Reference Range Interpretation Comme nts Protein (test code = Protein) Negative Glucose (test code = Glucose) 100 [facility] Medical[facility]inalysis macro (dipstick) panel - [id number] 10:14:54* Test Item Value Reference Range Interpretation Comme nts Protein (test code = Protein) Negative Glucose (test code = Glucose) 100 [facility] MedicalUrinalysis macro (dipstick) panel - [id number] 12:23:00* Test Item Value Reference Range Interpretation Comme nts Protein (test code = Protein) Negative Glucose (test code = Glucose) Negative [facility] Medical[facility]inalysis macro (dipstick) panel - [id number] 12:23:00* Test Item Value Reference Range Interpretation Comme nts Protein (test code = Protein) Negative Glucose (test code = Glucose) Negative [facility] MedicalUrinalysis macro (dipstick) panel - [id number] 12:23:00* Test Item Value Reference Range Interpretation Comme nts Protein (test code = Protein) Negative Glucose (test code = Glucose) Negative [facility] MedicalUrinalysis macro (dipstick) panel - [id number] 13:57:27* Test Item Value Reference Range Interpretation Comme nts Protein (test code = Protein) Negative Glucose (test code = Glucose) Negative [facility]inalysis macro (dipstick) panel - [id number] 13:57:27* Test Item Value Reference Range Interpretation Comme nts Protein (test code = Protein) Negative Glucose (test code = Glucose) Negative [facility] MedicalUrinalysis macro (dipstick) panel - [id number] 13:57:27* Test Item Value Reference Range Interpretation Comme nts Protein (test code = Protein) Negative Glucose (test code = Glucose) Negative [facility] MedicalStreptococcus agalactiae [Presence] in Unspecified specimen by Organism specific [id number] 00:00:00* Test Item Value Reference Range Interpretation Comme nts culture, genital (strep B) ( test code = culture, genital (strep B)) negative negative [facility] MedicalStreptococcus agalactiae [Presence] in Specimen by Organism specific [id number] 00:00:00* Test Item Value Reference Range Interpretation Comme nts culture, genital (strep B) ( test code = culture, genital (strep B)) negative negative [facility] MedicalStreptococcus agalactiae [Presence] in Unspecified specimen by Organism specific [id number] 00:00:00* Test Item Value Reference Range Interpretation Comme nts culture, genital (strep B) ( test code = culture, genital (strep B)) negative negative [facility] MedicalURINALYSIS [id number] 19:20:00* Test Item Value Reference Range Interpretation Comme nts UA COLOR (test code = COLU) YELLOW YELLOW UA APPEARANCE (test code = APPU) HAZY CLEAR UA GLUCOSE DIPSTICK (test code = DGLUU) NEGATIVE NEGATIVE UA BILIRUBIN DIPSTICK (test code = BILU) NEGATIVE NEGATIVE UA KETONE DIPSTICK (test code = KETU) NEGATIVE NEGATIVE UA SPECIFIC GRAVITY (test code = SGU) >= 1.030 1.001-1.035 N UA BLOOD DIPSTICK (test code = BRODIE) NEG NEGATIVE UA PH DIPSTICK (test code = NANDINI) 6.5 5-9 UA PROTEIN DIPSTICK (test code = PROU) NEGATIVE NEGATIVE UA UROBILINIOGEN DIPSTICK (test code = URO) 2.0 EU/dL See_Comment A [Automated messa ge] The system which generated this result transmitted reference range: <=1.0. The reference range was not used to interpret this result as normal/abnormal. UA NITRITE DIPSTICK (test code = REBEL) NEGATIVE NEGATIVE UA LEUKOCYTE ESTERASE DIPSTICK (test code = LEUU) NEG NEGATIVE UA WBC (test code = WBCU) 0-2 #/hpf NONE SEEN UA EPITHELIAL CELLS (test code = EPIU) FEW #/HPF RARE-FEW UA RBC (test code = RBCU) 3-5 #/hpf NONE SEEN A UA MUCUS (test code = MUCU) 4+ NONE SEEN URINE SAMPLE: CLEAN CATCHRUPTURE OF [id number] 19:03:00* Test Item Value Reference Range Interpretation Comme nts RUPTURE OF MEMBRANES (test c ode = ROM) NON-RUPTURED Urinalysis macro (dipstick) panel - [id number] 09:18:30* Test Item Value Reference Range Interpretation Comme nts Protein (test code = Protein) Negative Glucose (test code = Glucose) 100 [facility]) panel - [id number] 09:18:30* Test Item Value Reference Range Interpretation Comme nts Protein (test code = Protein) Negative Glucose (test code = Glucose) 100 [facility] MedicalUrinalysis macro (dipstick) panel - [id number] 09:18:30* Test Item Value Reference Range Interpretation Comme nts Protein (test code = Protein) Negative Glucose (test code = Glucose) 100 [facility] URINALYSIS W/O SPECIFIC [id number] 16:40:00* Test Item Value Reference Range Interpretation Comme nts POCT PH U (test code = 3254) n/a 5-8 POCT U LEUK EST (test code = 3263) n/a Negative - Negative POCT U NIT (test code = 3262) n/a Negative - Negati ve POCT U PROT (test code = 3259) negative Negative - Negat tahir POCT U GLU (test code = 3256) negative Negative - Negati ve POCT U KETONE (test code = 3258) n/a Negative - Neg ative POCT U BLD (test code = 3257) n/a Negative - Negati ve [facility] URINALYSIS W/O SPECIFIC [id number] 16:40:00* Test Item Value Reference Range Interpretation Comme nts POCT PH U (test code = 3254) n/a 5-8 POCT U LEUK EST (test code = 3263) n/a Negative - Negative POCT U NIT (test code = 3262) n/a Negative - Negati ve POCT U PROT (test code = 3259) negative Negative - Negat tahir POCT U GLU (test code = 3256) negative Negative - Negati ve POCT U KETONE (test code = 3258) n/a Negative - Neg ative POCT U BLD (test code = 3257) n/a Negative - Negati ve [facility]/O SPECIFIC [id number] 16:40:00* Test Item Value Reference Range Interpretation Comme nts POCT PH U (test code = 3254) n/a 5-8 POCT U LEUK EST (test code = 3263) n/a Negative - Negative POCT U NIT (test code = 3262) n/a Negative - Negati ve POCT U PROT (test code = 3259) negative Negative - Negat tahir POCT U GLU (test code = 3256) negative Negative - Negati ve POCT U KETONE (test code = 3258) n/a Negative - Neg ative POCT U BLD (test code = 3257) n/a Negative - Negati ve [facility] [id number] 07:16:00* Test Item Value Reference Range Interpretation Comme nts HEMOGLOBIN (test code = HGB) 9.5 g/dL 10.7-13.9 L HEMATOCRIT (test code = HCT) 29.1 % 32.1-42.1 L [id number] 12:03:00* Test Item Value Reference Range Interpretation Comme nts GLUCOSE (test code = GLUCBG) 50 mg/dl 60-110 L COVID 19 Asymptomatic IH [id number] 15:24:00* Test Item Value Reference Range Interpretation Comme nts COVID 19 Asymptomatic IH AG (test code = COVNONPUIAG) NEGATIVE NEGATIVE This test has be en authorized only for the detection ofproteins from SARS-CoV-2, not for any other viruses orpathogens. Negative results should be treated as presumptive andconfirmed with a molecular assay, if necessary for patientmanagement. Negative results do not rule out COVID-19 andshould not be used as the sole basis for treatment orpatient management decisions, including infection controldecisions. Negative results should be considered in thecontext of a patient's recent exposures, history and thepresence of clinical signs and symptoms consistent withCOVID-19. This test has not been FDA cleared or approved; the test hasbeen authorized by FDA under an Emergency Use Authorization(EUA) for use by laboratories certified under the CLIA thatmeet the requirements to perform moderate, high or waivedcomplexity tests. This test is authorized for use at thePoint of Care (POC), i.e., in patient care settingsoperating under a CLIA Certificate of Waiver, Certificate ofCompliance, or Certificate of Accreditation. This test is only authorized for the duration of thedeclaration that circumstances exist justifying theauthorization of emergency use of in vitro diagnostic testsfor detection and/or diagnosis of COVID-19 under Npgfbng523(b)(1) of the Act, 21 U.S.C. 360bbb-3(b)(1), unless theauthorization is terminated or revoked sooner. AG HEPATITIS B [id number] 14:56:00* Test Item Value Reference Range Interpretation Comme nts AG HEPATITIS B SURFACE (test code = HBSAG) NONREACTIVE NONREACTIVE IS CONSENT FORM SIGNED FOR HIV TESTING? NAB HEPATITIS C [id number] 14:56:00* Test Item Value Reference Range Interpretation Comme nts AB HEPATITIS C (test code = HCVAB) NONREACTIVE NONREACTIVE SIGNAL TO CUTOFF (test code = CUTOFF) 0.08 <0.80 N IS CONSENT FORM SIGNED FOR HIV TESTING? NAB [id number] 14:56:00* Test Item Value Reference Range Interpretation Comme nts AB TREPONEMA (test code = TREPAB) NONREACTIVE NONREACTIVE IS CONSENT FORM SIGNED FOR HIV TESTING? NAB HIV 1 14:56:00* Test Item Value Reference Range Interpretation Comme nts AB HIV 1 2 (test code = WXQ33WT) NONREACTIVE NONREACTIVE Done by [employer] 4[employer] Gen HIV Ag/Ab Combo Screen IS CONSENT FORM SIGNED FOR HIV TESTING? NAG HEPATITIS B [id number] 14:23:00* Test Item Value Reference Range Interpretation Comme nts AG HEPATITIS B SURFACE (test code = HBSAG) NONREACTIVE NONREACTIVE IS CONSENT FORM SIGNED FOR HIV TESTING? NAB HEPATITIS C [id number] 14:23:00* Test Item Value Reference Range Interpretation Comme nts AB HEPATITIS C (test code = HCVAB) NONREACTIVE SIGNAL TO CUTOFF (test code = CUTOFF) <0.80 IS CONSENT FORM SIGNED FOR HIV TESTING? NAB [id number] 14:23:00* Test Item Value Reference Range Interpretation Comme nts AB TREPONEMA (test code = TREPAB) NONREACTIVE NONREACTIVE IS CONSENT FORM SIGNED FOR HIV TESTING? NAB HIV 1 14:23:00* Test Item Value Reference Range Interpretation Comme nts AB HIV 1 2 (test code = QWU00ET) NONREACTIVE IS CONSENT FORM SIGNED FOR HIV TESTING? NPROTHROMBIN [id number] 14:17:00* Test Item Value Reference Range Interpretation Comme nts PROTHROMBIN TIME PATIENT (te st code = PTP) 10.4 secs 10.4-12.4 N THROMBOPLASTIN TIME [id number] 14:17:00* Test Item Value Reference Range Interpretation Comme nts THROMBOPLASTIN TIME PARTIAL (test code = PTT) 26.1 secs 22-38 N [id number] 14:17:00* Test Item Value Reference Range Interpretation Comme nts FIBRINOGEN (test code = FIB) 641 mg/dL 309-518 H URINALYSIS W/O [id number] 13:49:00* Test Item Value Reference Range Interpretation Comme nts UA GLUCOSE DIPSTICK (test co de = DGLUU) NEGATIVE NEGATIVE UA KETONE DIPSTICK (test cod e = KETU) 1+ NEGATIVE UA PROTEIN DIPSTICK (test co de = PROU) NEGATIVE NEGATIVE IS NURSE PERFORMING TEST? NCBC W/AUTO [id number] 13:42:00* Test Item Value Reference Range Interpretation Comme nts WHITE BLOOD CELL (test code = WBC) [...] pg 27-35 N MEAN CELL HGB CONCETRATION ( test code = MCHC) 33.3 gm/dL 32.2-34.1 N RED CELL DISTRIBUTION WIDTH (test code = RDW) 12.7 % 12.4-16.5 N PLATELET COUNT (test code = PLT) 226 K/mm3 133-385 N MEAN PLATELET VOLUME (test c ode = MPV) 11.1 fl 9.1-12.7 N NEUTROPHIL % (test code = NT%) 66.6 [...] = BA#) 0.0 K/mm3 RBC MORPHOLOGY REQUIRED (jono t code = RBCM) NORMAL NORMAL PLATELET MORPHOLOGY REQUIRED (test code = PLTMR) NORMAL NORMAL URINALYSIS [id number] 18:12:00* Test Item Value Reference Range Interpretation Comme nts UA COLOR (test code = COLU) YELLOW YELLOW UA APPEARANCE (test code = APPU) CLEAR CLEAR UA GLUCOSE DIPSTICK (test code = DGLUU) NEGATIVE NEG UA BILIRUBIN DIPSTICK (test code = BILU) NEGATIVE NEG UA KETONE DIPSTICK (test cod e = KETU) 1+ NEG A UA SPECIFIC GRAVITY (test code = SGU) 1.016 1.001-1.035 N UA BLOOD DIPSTICK (test code = BRODIE) NEG NEG UA PH DIPSTICK (test code = NANDINI) 6.0 5-9 UA PROTEIN DIPSTICK (test code = PROU) NEGATIVE NEG UA UROBILINIOGEN DIPSTICK (test code = URO) NEGATIVE mg/dL NEG UA NITRITE DIPSTICK (test code = REBEL) NEG NEG UA LEUKOCYTE ESTERASE DIPSTICK (test code = LEUU) NEG NEG UA WBC (test code = WBCU) 0-2 #/hpf NONE SEEN UA RBC (test code = RBCU) NONE SEEN #/hpf NONE SEEN UA EPITHELIAL CELLS (test code = EPIU) RARE #/HPF RARE-FEW UA BACTERIA (test code = BACU) NEGATIVE /HPF RARE-FEW UA MUCUS (test code = MUCU) 1+ NONE SEEN URINE SAMPLE: CLEAN CATCH- US [facility] [id number] 10:58:00 [facility] 1995 Sex: F Patient Name: JENNA DUNLAP Unit No: [id number] EXAMS: CPT CODE: [id number] US [facility] [id number] [facility] [address], [place] [address] OBSTETRICAL ULTRASOUND REPORT ---- Pat. Name: JENNA DUNLAP Pat. No: [id number] Study Date: 09/15/2020 10:08am , Age: 04 1995, 25 Pregnancies: 4, Para 2 LMP: Unknown GA by US: 32w4d GA Selected: 32w2d (From Known E) MIGUEL: 11/08/2020 Referring MD: ALEXANDRA GARCIA [employer] Instructor: Dorothy Mariscal RDMS CPT4: USPREGFU Admitting MD: ALEXANDRA GARCIA Hist/Ind: GROWTH SCAN 1 MEASUREM ENTS AGE GROWTH EVALUATION Measurement GA Range Srce %for GA Ratios ----- ---- ------- BPD 8.0 cm 32w3d (92u5f-98l5l) Hadl BPD 53% FL/BPD 0.78 (0.71 - 0.87) HC 30.8 cm 33w6d (35c2u-56f9u) Hadl HC 74% FL/AC 0.22 (0.20 - 0.24) APD 8.6 cmAPD HC/AC 1.07 (0.95 - 1.14) TAD 9.7 cm TAD CI 0.75 (0.70 - 0.86) AC 28.8 cm 32w6d (29w6d- 35w6d) Hadl AC 59% FL 6.2 cm 31w6d (93v3e-45y7u) Hadl FL 43% HL 5.6 cm 32w4d (94m0s-19m8t) Alfredito HL 54% GA for sonogram 32w4d (25y1s-84t1z) Weight Estimate: based on (BPD,HC,AC,FL) Hadlock Weight: 2031 gm (9608-7473) Hadlo : 4lbs, 7oz Normal: 1867 gm (2985-5833) Brenn Wt% 60% for 32.3 wks Cervical Pooja th: 3.5 cm Heart Rate: 144 bpm Amniotic Fluid Index: 20.3cm (08.5-24.3) Q1: 4.8cm Q2: 6.9cm Q3: 3.6cm Q4: 5.0cm CLINICAL SUMMARY Type of Gestation: Marion Intrauterine in vertex presentation. size is appropriate for gestational age. growth: Consistent with normal growth motion and organs seen: heart motion seen body and limb movements observed tone noted Placental l ocation: Anterior Placental maturity : Grade 2 There is no evidence of placenta previa. [facility] NAME: [facility] Radiology Department PHYS: Alexandra Bazzi DO [address] : 1995 AGE: 25 SEX: F [place] [address] LOC: Gloria.RAD PHONE#: [phone] EXAM DATE: 09/15/2020 STATUS: REG CLI FAX #: [phone] RAD NO: Page 1 Signed Report (CONTINUED) Patient Name: JENNA DUNLAP Unit No: [id number] EXAMS: CPT CODE: [id number] [place] [id number] (Continued) Amniotic fluid volume is normal. Uterus and adnexa: No significant abnormality is seen. Thank you for allowing us to participate in the care of this patient. Enzo Carlson M.D. Electronic Signature 09/15/2020 10:58am at 1058 Reported and signed by: Enzo Carlson MD CC: Alexandra Garcia DO Technologist: Dorothy Mariscal RDMS Probe: Trnscrbd D/ (1058) Nyasia Sheikh D/T:S: 09/15/2020 (1117) [facility] NAME: [facility] Radiology Department PHYS: Alexandra Bazzi DO [address] : 1995 AGE: 25 SEX: F [place] [address] LOC: FrantzRAD PHONE #: [phone] EXAM DATE: 09/15/2020 STATUS: REG CLI FAX #: [phone] RAD NO: Page 2 Signed Report Patient Name: JENNA DUNLAP Unit No: [id number] EXAMS: CPTCODE: [id number] [place] [id number] (Continued) [facility] NAME: JENNA DUNLAP Radiology Department PHYS: Alexandra Bazzi DO [address] : 1995 AGE: 25 SEX: F [place], [place] [address] LOC: FrantzRAD PHONE #: [phone] EXAM DATE: 09/15/2020 STATUS: REG CLI FAX #: [phone] RAD NO: Page 3 Signed ReportPOCT URINALYSIS W/O SPECIFIC [id number] 18:01:00* Test Item Value Reference Range Interpretation Comme nts POCT PH U (test code = 3254) n/a 5-8 POCT U LEUK EST (test code = 3263) n/a Negative - N egative POCT U NIT (test code = 3262) n/a Negative - Negati ve POCT U PROT (test code = 3259) neg Negative - Negat tahir POCT U GLU (test code = 3256) neg Negative - Negati ve POCT U KETONE (test code = 3258) n/a Negative - Neg ative POCT U BLD (test code = 3257) n/a Negative - Negati ve Lab Interpretation (test cod e = 68969-5) Normal [facility] W/O SPECIFIC [id number] 15:55:00* Test Item Value Reference Range Interpretation Comme nts POCT PH U (test code = 3254) n/a 5-8 POCT U LEUK EST (test code = 3263) n/a Negative - N egative POCT U NIT (test code = 3262) n/a Negative - Negati ve POCT U PROT (test code = 3259) neg Negative - Negat tahir POCT U GLU (test code = 3256) neg Negative - Negati ve POCT U KETONE (test code = 3258) n/a Negative - Neg ative POCT U BLD (test code = 3257) n/a Negative - Negati ve [facility]<14 WEEKS US [id number] 19:54:31Limited USG for FHT: ?150 Saida Zackery Oliveira MD ?04/27/2020 ?2:54 [facility] W/O SPECIFIC [id number] 17:49:00* Test Item Value Reference Range Interpretation Comme nts POCT PH U (test code = 3254) n/a 5-8 POCT U LEUK EST (test code = 3263) n/a Negative - N egative POCT U NIT (test code = 3262) n/a Negative - Negati ve POCT U PROT (test code = 3259) neg Negative - Negat tahir POCT U GLU (test code = 3256) neg Negative - Negati ve POCT U KETONE (test code = 3258) n/a Negative - Neg ative POCT U BLD (test code = 3257) n/a Negative - Negati ve Lab Interpretation (test cod e = 33948-8) Normal [facility] Notes Date/Time Note Provider Source 2022-02-19 11:17:00 [id number]:17:57332 [address] [facility] [address] PATIENT NAME: JENNA DUNLAP ADMIT DATE: 01/25/22ACCOUNT NO: [id number] ROOM NO: .[facility] AGE: 26 SEX: F ADMITTING PHYSICIAN: Rafael Long MD ATTENDING PHYSICIAN: Rafael Long MD ADMISSION DATE: 2DISCHARGE DATE: 01/27/2022 ADMISSION DIAGNOSES:1. Term .2. Previous section x4.3. Desires permanent sterilization. PROCEDURE PERFORMED: Repeat and bilateral tubal sterilization. DISPOSITION: The patient discharged home in good condition. DISCHARGE MEDICATIONS: Include [place], Motrin, vitamin, and Tums. DISCHARGE EXAMINATION: Benign with incision noted to be clean, dry, and intact. SUMMARY OF HOSPITAL COURSE: The patient presented at 39 weeks' gestation forscheduled repeat and tubal sterilization as previously dictated. Postoperatively, the patient did well. She remained afebrile with stable vitalsigns throughout her hospital course. She tolerated regular diet, ambulatedwithout difficulty and was meeting all postoperative goals. By postoperativeday #2, she was discharged home in good condition. DISCHARGE INSTRUCTIONS: Discharge medications and wound care instructions werediscussed with the patient and family. She was scheduled for followup in theoffice in 2 weeks for incision check. Dictated By: Rafael Long MD WT: DS:FJESUS/CASSIDY/NTSDD: 02/19/2022 11:17:00DT: 02/19/2022 22:40:26Conf#: [id number]/DID#: [id number] Authenticated by Rafael Long MD On 02/21/2022 12:05:29 AM at 1205 PATIENT NAME: JENNA DUNLAP xctafmz0416-42-79H78:40:00F.[id number] ilable for patient gngpBMIZXOPWRNIRQA0276-21-72M39:06:15 [facility] 2022-01-27 10:55:00 [id number]/[id number] GG1RwLsZmg0iYIvdcqTQIIc+klw8075-56-62U88:55:00 [facility])OB Postpart Progr NoteREPORT#:[id number] REPORT STATUS: SignedDATE:01/27/22 TIME: 1055 PATIENT: JENNA DUNLAP UNIT #: [id number]#: [id number] ROOM/BED: [facility]-ADOB: [birth year] AGE: 26 SEX: F ATTEND: Rafael Long MDADM AUTHOR: Zaki Mohr MD * ALL edits or amendments must be made on the electronic/computer document * Subjective SubjectiveAdmission EGA: Weeks: 39 Days: 0Status/day: post operative (day 2)Patient reports: Patient reports: Yes: normal lochia, pain management effective, tolerating po well, voiding well, tolerating ambulation. No: complaints. Objective Nursing Documentation ReviewNursing data:The data set between the solid lines has been imported from nursing documentation. Any exceptions have been noted below under Provider comments. Feeding preference: Post hemorrhage risk score: Low Risk for Hemorrhage Provider comments on imported nursing data: [] GeneralVS:Vital Signs Date Temp Pulse Resp B/P B/P Mean Pulse Ox FiO2 01/26-01/27 97.7-98.3 66-81 18-20 111-140/72-82 99 Last Documented: Result Date Time Pulse Ox 99 01/27 830 B/P 117/76 01/27 830 Temp 97.9 01/27 0830 Pulse 81 01/27 0830 Resp 18 01/27 0830 B/P Mean 81.0 01/25 1200 PATIENT WEIGHT: Weight (lb): 260Weight (oz): 9.38Weight (kg): 118.200 Medications:Active Meds + DC'd Last 24 HrsAcetaminophen (ACETAMINOPHEN 325 MG TAB) 650 MG Q6H PRN PRN PO Ibuprofen (IBUPROFEN 600 MG TAB) 600 MG Q6H PRN PRN PO Rho Immune Globulin (RHOGAM PLUS) 300 MCG .STK-MED ONE IM (DC) Multivit/Folic Acid/Iron ( Vitamin Tablet) 1 TAB DAILY PO Oxycodone HCl (OXYIR 5MG TAB) 5 MG Q4H PRN PRN PO Oxycodone HCl (Oxycodone HCl 10 MG IR) 10 MG Q4H PRN PRN PO Docusate Sodium (DOCUSATE SODIUM 100 MG CAP) 200 MG BEDTIME PO Ondansetron HCl (ZOFRAN 2 MG/ML 4 MG SYR) 4 MG Q6H PRN PRN IV Ondansetron HCl (ZOFRAN 4 MG UD TAB) 4 MG Q6H PRN PRN PO Acetaminophen (ACETAMINOPHEN 325 MG TAB) 650 MG Q6H PO (DC) Ibuprofen (IBUPROFEN 600 MG TAB) 600 MG Q6H PO (DC) Al Hydrox/Mg Hydrox/Simethicone (MYLANTA 30 ML SUSP) 30 ML ASDIR PRN PO Dextrose/Lactated Ringer's (DEXTROSE 5% IN LACTATED RINGERS 1000 ML) 1,000 ML ASDIR IV (DC) Diphtheria/Pertussis/Tetanus Vacc (ADACEL VACCINE) 0.5 ML ASDIR IM Hydrocortisone (HYDROCORTISONE 1% TOP CREAM 30 GM) 1 APPL ASDIR PRN TOPICAL Hydrocortisone/Pramoxine (ANALPRAM HC 2.5% CRM SINGLES) 1 GM ASDIR PRN RECTAL (CKD) Hydroxyzine HCl (ATARAX) 25 MG Q6H PRN PRN PO Magnesium Hydroxide (MILK OF MAGNESIA 30 ML UD) 30 ML BID PRN PRN PO Measles/Mumps/Rubella Vaccine Live (M-M-R II VACCINE W DILUENT) 1 VIAL BEFORE DISCHG PRN SUBQ Methylergonovine Maleate (METHERGINE 0.2 MG/ML 1 ML AMP) 0.2 MG ASDIR PRN IM Nalbuphine HCl (NALBUPHINE HCL 10 MG/ML 1 ML AMP) 2 MG Q4H PRN PRN IV Nalbuphine HCl (NALBUPHINE HCL 10 MG/ML 1 ML AMP) 2 MG Q4H PRN PRN IM Nalbuphine HCl (NALBUPHINE HCL 10 MG/ML 1 ML AMP) 4 MG Q4H PRN PRN IV Nalbuphine HCl (NALBUPHINE HCL 10 MG/ML 1 ML AMP) 4 MG Q4H PRN PRN IM Naloxone HCl (NALOXONE HCL 0.4 MG/ML 1 ML VIAL) 0.4 MG ANES ASDIR PRN IV Polyethylene Glycol (POLYETHYLENE GLYCOL PKT) 17 GM DAILY PRN PRN PO Promethazine HCl (PROMETHAZINE HCL) 25 MG Q6H PRN PRN PO Simethicone (SIMETHICONE 80 MG TAB) 80 MG PC HS PRN PRN PO Tranexamic Acid (Tranexamic Acid) 1,000 MG ASDIR PRN IV Sodium Chloride (SODIUM CHLORIDE 0.9% 100 ML ADD-[place]) 100 MLHydroxyzine HCl (ATARAX) 25 MG PACU ASDIR PRN PRN IM Neomycin/Polymyxin/Bacitracin (TRIPLE ANTIBIOTIC 0.94 GM) 1 APPLIC BID PRN TOPICAL Physical ExamNeuro: Exam: alert, oriented c7Whykakp: soft, no abnormal tenderness, no guardingIncision site: dressing clean dryUterus: involution appropriate, non-tenderFundus: firm, at the umbilicus, non-tenderLower extremities: Edema: trace ResultsResults: labs reviewed, vital signs reviewed Blood LossBlood loss at delivery:Blood loss at delivery: <1K: no sx hypovol=no hem, no more than expected Cause of the bleeding: Management that was provided: QBL at delivery: EBL at delivery: 800 Diagnosis, Assessment Plan Diagnosis, Assessment PlanAssessment: nml progressPlan: routine care, discharge todayPlan discussed with: patient at 1056 RPT #:[id number] OF REPORT PRProgress nlxz1374-88-03P19:55:00F.BTZZ72048110-6379OIVzatr able for patient ryboBHCMOSLXZOEEFM2574-76-77S34:57:02 [facility] 2022-01-26 12:57:00 [id number] Q++CU48g7oE4NtVZWVGdxbocqh9ot KWX5LMsVf2ZQHzlM8ioNTwpu4nO7686-59-16W38:57:00 [facility])OB Postpart Progr NoteREPORT#:[id number] REPORT STATUS: SignedDATE:01/26/22 TIME: 1257 PATIENT: JENNA DUNLAP UNIT #: [id number]#: [id number] ROOM[facility]BED: [facility]-ADOB: [birth year] AGE: 26 SEX: F ATTEND: Rafael Long MDADM AUTHOR: Navi Hallman MD * ALL edits or amendments must be made on the electronic/computer document * See AddendumSubjective SubjectiveAdmission EGA: Weeks: 39 Days: 0Status/day: post operative (day 1)Patient reports: Patient reports: Yes: normal lochia, pain management effective, tolerating po well, voiding well, voiding without pain, tolerating ambulation. No: complaints. Objective Nursing Documentation ReviewNursing data:The data set between the solid lines has been imported from nursing documentation. Any exceptions have been noted below under Provider comments. Feeding preference: Post hemorrhage risk score: Low Risk for Hemorrhage Provider comments on imported nursing data: [] GeneralVS:Vital Signs Date Temp Pulse Resp B/P B/P Mean Pulse Ox FiO2 01/25 36.4-36.6 66-70 18 102-111/66-71 Last Documented: Result Date Time B/P /01/25 Temp 36.4 01/25 2001 Pulse 70 01/25 2001 Resp 18 01/25 2001 B/P Mean 81.0 01/25 1200 Pulse Ox 99 01/25 1200 PATIENT WEIGHT: Weight (lb): 260Weight (oz): 9.38Weight (kg): 118.200 Physical ExamNeuro: Exam: alert, oriented l5Tbbrfom: soft, no abnormal tenderness, no guardingIncision site: dressing clean dryFundus: firm, at the umbilicus, non-tenderLower extremities: Edema: trace ResultsFindings/data:Laboratory Tests: 01/26 0655 Hematology Hgb (10.1 - 13.8 g/dL) 9.5 L Hct (32.5 - 41.8 %) 28.9 L Diagnosis, Assessment Plan Diagnosis, Assessment PlanAssessment: nml progressPlan: routine care, discharge tomorrow at 1258 Addendum 1: 01/26/22 1258 by Navi Hallman MD Acute blood loss anemia, asymptomatic at 1258 RPT #:[id number] OF REPORT PRProgress abvi4541-97-89K75:57:00F.EZYO82380188-8184FRYaows able for patient ymebSZWRSRCFIQBSSR5265-15-40X63:58:27 [facility] 2022-01-25 10:02:00 [id number] O1mdZj7vCL2pVQVc7zeWMLVHSAwZZ 4x/pNd4HZBCi7JhVmORjLhgrmzn0410-68-89T47:02:21765 5-0125 [facility] [address] PATIENT NAME: JENNA DUNLAP ADMIT DATE: 01/25/22ACCOUNT NO: [id number] ROOM NO: .4600 AGE: 26 SEX: F ADMITTING PHYSICIAN: Rafael Long MD ATTENDING PHYSICIAN: Rafael Long MD OPERATION DATE: 01/25/2022 SURGEON: Rafael Long MD GREETER: Navi Hallman MD PROCEDURE PERFORMED:1. Repeat low transverse delivery.2. Bilateral salpingectomy for sterilization. PREOPERATIVE DIAGNOSES:1. A 39-week .2. Previous section x4.3. Obesity.4. Desires permanent sterilization. POSTOPERATIVE DIAGNOSES:1. A 39-week .2. Previous section x4.3. Obesity.4. Desires permanent sterilization. ESTIMATED BLOOD LOSS: 800 mL. ANESTHESIA: Combined spinal epidural. OPERATIVE FINDINGS:1. Normal-appearing uterus, ovaries, and tubes with adhesions of left fallopiantube to ovary.2. Cephalic female infant, Apgars 8 and 9, weight 7 pounds 4 ounces, to newbornnursery.3. Hemostatic.4. All counts correct. DISPOSITION: PACU in good condition. PATHOLOGY: Bilateral tube and tubal segments. STATEMENT OF MEDICAL NECESSITY: The patient presented at 39 plus weeks'gestation for scheduled repeat . Risks, benefits, alternatives, andindications of repeat were discussed with the patient and family andthey agreed to plan. She also desired permanent sterilization. Risks,benefits, alternatives, and indications of tubal sterilization were discussed PATIENT NAME: JENNA DUNLAP with the patient including alternative methods of control, failure rate,permanence of procedure, irreversibility of the procedure, and she affirmeddesire for permanent surgical sterilization. STATEMENT OF PROCEDURE: After informed consent was obtained, the patient wastaken to the operating room. Adequate spinal epidural anesthesia wasestablished. She was prepped and draped in usual sterile fashion. A transverseskin incision made through the previous scar. This was carried downto the fascia. Fascia was scored in midline. Fascial incision was extendedbilaterally. Muscles dissected off back of the fascia and in midline. Peritoneal cavity was bluntly entered. Bladder flap was created at the levelof the vesicouterine peritoneal reflection. Low transverse hysterotomy wasmade, this was bluntly extended bilaterally. Membranes were bluntly rupturedwith clear fluid return. head was brought to the hysterotomy. Withfundal pressure, head and body were delivered. Mouth and nares were bulbsuctioned. Cord was doubly clamped and cut and fetus passed off for evaluation. Placenta was delivered with fundal massage. Uterus was exteriorized, wrappedin moist laparotomy sponge and curettaged with dry laparotomy sponge. Hysterotomy was closed with #1 chromic suture in running-locked fashion. It wasirrigated and rendered hemostatic. Attention was directed to left fallopiantube. The distal tube was noted to be adhered to the ovary. Decision made toproceed with a midsegment salpingectomy. A clear area in the mid portion oftube was identified. This was punctured using a hemostat with mesosalpinx. Thetube was then doubly tied off and the midsection was sharply excised usingMetzenbaum scissors and sent for pathology. Attention was directed to the rightfallopian tube. A clear mid portion of the tube was identified and themesosalpinx was punctured using hemostat. The proximal tube was clamped acrossusing a hemostat and the distal mesosalpinx was clamped across using Kellyclamp. The tube was sharply excised. The distal pedicle was doubly ligatedfirst with a free tie and then with transfixion suture of 0 chromic suture. Proximal section was tied off with a free tie of 0 chromic suture. The uteruswas returned to abdominal cavity. Gutters were copiously irrigated andsuctioned dry. Hysterotomy again inspected and remained hemostatic as were thetubal pedicles. Peritoneum was reapproximated with 2-0 chromic suture. Muscleswere reapproximated with 2-0 chromic suture. Fascia was closed with 0 Vicrylfrom either side and tied in midline. Subcutaneous tissue was copiouslyirrigated and suctioned dry. It was reapproximated with plain gut suture. Skinwas closed with 3-0 Monocryl in a running subcuticular stitch. Wound wasdressed with Mastisol, Steri-Strips, and occlusive bandage. Blood and clot wereevacuated from the uterus and vagina. The patient was taken to recovery room ingood condition. There were no operative or anesthetic complications. Dictated By: Rafael Long MD WT: OP:F.HIM/SHEGR/NTSDD: 01/25/2022 10:02:40DT: 01/25/2022 12:03:00Conf#: [id number]/DID#: [id number] Authenticated by Rafael Long MD On 01/29/2022 09:49:15 PM PATIENT NAME: JENNA DUNLAP at 0949 PATIENT NAME: JENNA DUNLAP beipjn4374-18-98T51:03:00F.[id number] lable for patient hwknYWKINXUCPVMLCG1431-58-13G08:49:59 [facility] 2022-01-25 10:00:00 [id number] E0YCQRfrOxQFRnc7AN4ND7q6v9x3t 7ZpAe6n+odq4er53EBoRxlJwMvl7187-09-91I97:00:00 [facility] ([facility])OB Delivery NoteREPORT#:[id number] REPORT STATUS: SignedDATE:01/25/22 TIME: 1000 PATIENT: JENNA DUNLAP UNIT #: [id number]#: [id number] [address] [birth year] AGE: 26 SEX: F ATTEND: Rafael Long MDADM AUTHOR: Rafael Long MD * ALL edits or amendments must be made on the electronic/computer document * OB Delivery Nursing Documentation ReviewNursing data:The data set between the solid lines has been imported from nursing documentation. Any exceptions have been noted below under Provider comments. ROM date: ROM time: Membranes rupture method: AROMAmniotic fluid color: Amniotic fluid amount: Steroids prior to arrival: Antibiotic prophylaxis given: YesPost hemorrhage risk score: Medium Risk for Hemorrhage Delivery date infant A: Delivery time A: Birthweight (gm) A: Weight (lb) infant A: Weight (oz) A: Gender infant A: FemaleApgar 1 minute A: 5 minutes A: 10 minutes A: Cord pH obtained infant A: Vacuum time A: Vacuum # pulls infant A: Vacuum # popoffs infant A: QBL at delivery: Provider comments on imported nursing data: [] Pre-deliveryGBS status: GBS status: negativeAdmission EGA: Weeks: 39 Days: 0Admission indication:sched C/S Baby A InformationBaby A information Delivery date: 01/25/22 Delivery time: 928 status: live born Wt of baby (lbs/oz): 7/4 Gender: female 1 minute: 8 5 minutes: 9 Presentation: vertex DeliveryCesarean section indication: elective repeat Priority: scheduled : : contraindicated Antibiotic prior to incision: 1 dose )(SCDs applied activated: Yes Uterine incision: low transverse Uterine scar: intact Consent: indication discussed, questions answered, pt consent to op delivery Mother's condition: mother stable 's condition: stable in nursery Op/Inv Proc Note - Brief)( Procedure(s) performed: repeat low transverse c/s, bilateral tubal ligation)( Primary Surgeon:Jahaira Long)( Motion Picture Cameraman(s):Bradley Hallman)( Pre-procedure diagnosis:term preg, prev C/Sx4, desires sterilizatoin, obesity)( Post-procedure diagnosis:same)( Technique/Procedure:LTCS, L midsegment salpingectomy, R salpingectomy.Anesthesia: combined spinal/epidural)( Estimated blood loss (ml): 800)( Specimen removed/altered: L tubal segment, R distal tube)( Complications: none)( Finding(s):nl ut/ov/tubes. adhesions of L tube to ovary.hemostatic.counts correct.Condition: stable Blood Loss/DetailsBlood loss at delivery: <1K: no sx hypovol=no hem, no more than expectedEBL at delivery (ml's): 800 at 1004 [facility] #:[id number] OF REPORT CLClinical srhn9679-94-54M07:00:00F.WMPV35348864-0903JLBslny able for patient drlmAARSVLFSDFHSIO7962-28-83O86:04:48 [facility] 2022-01-25 08:22:00 [id number] DhRdFp6ahF2bqccDGsj9/FOSancM0 hrSv+CkrFUDJqcQsN1exvD3l3+P5377-87-16E26:22:00 [facility] PREPORT#:[id number] REPORT STATUS: SignedDATE:01/25/22 TIME: 821 PATIENT: JENNA DUNLAP UNIT #: [id number]#: [id number] [facility] AGE: 26 SEX: F ATTEND: Rafael Long MDADM AUTHOR: Rafael Long MD * ALL edits or amendments must be made on the electronic/computer document * OB HistoryChief complaint: scheduled C-SectionPregnancy history: : 6 Term: 4 Abortus: 1 Number of prev : 4Current : Admission EGA (weeks) 39 Admission EGA (days) 0Conditions of : previous uterine incision, obesityLabs: Blood type: A Rh: negative Rubella: immune Hepatitis B: negative HIV: negative STD: negative Syphilis: currently negative GBS: negative Past HistoryAdditional Medical History:deniesPast Surgical History:Reports: (x4). Alcohol Use Denies EtOH useDrug Use Denies recreational drugsSmoking status: Smoking status for patients 13 years old or older: Never SmokerAllergies:Coded Allergies:adhesive tape (Mild, RASH 01/25/22) Objective GeneralVS:Last Documented: Result Date Time B/P Mean 69.0 01/25 0756 B/P 94/57 01/25 0756 Temp 98.1 01/25 0756 Pulse 87 01/25 0756 Resp 20 01/25 0756 Vital Signs Date Temp Pulse Resp B/P B/P Mean Pulse Ox FiO2 01/25 98.1 87 20 94/57 69.0 PATIENT WEIGHT: Weight (lb): 260Weight (oz): Weight (kg): 117.944577 Physical ExamHEENT: normocephalic w/o injuryNeuro: Exam: alert, oriented t0Hoxevwl: gravid, soft, no abnormal tendernessUterine activity: Monitor: toco Frequency (description): noneMembranes: Membranes: IntactBaby A: Baby A baseline: 130 bpm Baby A variability: moderate 6-25 bpm Baby A accelerations: 15 X 15 Baby A decelerations: none Baby A FHR category: category 1 Diagnosis, Assessment Plan Diagnosis, Assessment PlanFree Text A P:39wks, prev C/S, desires sterilization.repeat C/S with BTL. at 0828 [facility] #:[id number] OF REPORT HPHistory and physical uwhbnvsshzi7153-13-51D19:22:00F.[id number] AVAvailable for patient qxtvYOBZZDCPIKVYRL6979-55-70C80:29:02 [facility] 2021-12-24 18:59:00 [id number] ddJN02zOnsFGyuC+Y3EGRoFrZCCqr FDTMOjQKX4a9w6QnXp4j0hVxtOY9225-28-52T29:59:00 [facility])DT History PhysicalREPORT#:[id number] REPORT STATUS: SignedDATE:12/24/21 TIME: 1858 PATIENT: JENNA DUNLAP UNIT #: [id number]#: [id number] ROOM/BED:: 94 AGE: 26 SEX: F ATTEND: Rafael Long [facility] AUTHOR: Reina Mitchell MD * ALL edits or amendments must be made on the electronic/computer document * History PhysicalHistory PhysicalOBED H P S: 26 yo P4014 at 35w2d who complains of pubic bone pain, back pain, and some increased clear discharge with urination the last 2 days. She reports having this pain similar to her prior pregnancies starting at 30 weeks, but "this one isn't going away as much. sometimes I'll have shooting pain down my vagina and it feels like my vagina is broken." Reports some pelvic pressure. +FM, - VB, - regular ctx. Preg c/b1. 4 prior c/section, desires BTL- signed paperwork at 28w.2. Obesity/BMI 483. Rh negative4. noncompliance in - yet to do 1hrgtt. 12 point ROS negativePMH: morbid obesity, RH negativePSH: C/Section 4Meds: PNV, PPIA: NoneFhx: noncontributoryS: no T/E/D O:VSSGen: NAD/AAOx3, morbid obesityHEENT: NC/ATChest: no increased wobAbd: soft, gravid, NT/NDExt: no TTPGU: cl/th/high. no vag bleeding/fluid. pain at the sypmphysis pubic bone- focalFHT: 135 bpm, mod variaility, +accels, no noticeable decels but difficult to monitor Labs:Laboratory Tests: 12/24 12/24 1754 1627 Other Body Source Membranes Rupture NON-RUPTURED Urines Urine Color (YELLOW) YELLOW Urine Appearance (CLEAR) HAZY Urine pH (5 - 9) 6.5 Ur Specific [place] (1.001 - 1.035) >= 1.030 Urine Protein (NEGATIVE) NEGATIVE Urine Glucose (UA) (NEGATIVE) NEGATIVE Urine Ketones (NEGATIVE) NEGATIVE Urine Blood (NEGATIVE) NEG Urine Nitrite (NEGATIVE) NEGATIVE Urine Bilirubin (NEGATIVE) NEGATIVE Urine Urobilinogen (<=1.0 EU/dL) 2.0 H Ur Leukocyte Esterase (NEGATIVE) NEG Urine RBC (NONE SEEN #/hpf) 3-5 H Urine WBC (NONE SEEN #/hpf) 0-2 Ur Epithelial Cells (RARE - FEW #/HPF) FEW Urine Mucus (NONE SEEN) 4+ A/P: 26 yo P4014 at 35w2d who complains of pubic bone pain, most likely with MSK pain/ symphysis pubis dysfunction - ROM plus negative- UA: no e/o infection- 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 Patient reports feeling improved from arrival time and wants to go home. DC home. at 1929 RPT #:[id number] OF REPORT HPHistory and physical rmcwmsqtjpu0134-72-84D06:59:00F.[id number] AVAvailable for patient ykneRLWGCXMMEKODLJ0028-30-00J60:29:50 [facility] 2020-11-05 08:46:00 PUxzgxbthsb10674707B 6iFM9NYZKJMnwL+ur7im4Vlm8iKk2 nlQ/VaaarqIm00IdOwPdzeU9P7EUU81Ii/9944-78-28B16:4 6:00 [facility] ([facility])OB Disch PostpartumREPORT#:[id number] REPORT STATUS: SignedDATE:11/05/20 TIME: 0846 PATIENT: JENNA DUNLAP UNIT #: [id number]#: [id number] ROOM/BED: 2069-ADOB: [birth year] AGE: 25 SEX: F ATTEND: Alexandra Garcia DOADM AUTHOR: Elizabeth Mancini MD * ALL edits or amendments must be made on the electronic/computer document * Subjective SubjectiveAdmission EGA: Weeks: 39 Days: 2EGA at delivery (wks/days): 39 weeks (2 days)Status/day: post operative (day 2)Patient reports: Patient reports: Yes: normal lochia, pain management effective, tolerating po well, voiding well. No: complaints. Comments:motivated for early discharge Objective GeneralVS:Vital Signs Date Temp Pulse Resp B/P B/P Mean Pulse Ox FiO2 11/04-11/05 97.5-98.1 80-102 18-20 116-134/75-83 Last Documented: Result Date Time B/P 11/05 041 Temp 98.1 11/05 041 Pulse 80 11/05 0413 Resp 18 11/05 0413 B/P Mean 90.0 11/04 0405 Pulse Ox 96 11/03 1245 PATIENT WEIGHT: Weight (lb): 278Weight (oz): Weight (kg): 126.099 Notes:resting comfortably in bed, no distress Physical ExamBreasts: Breasts: filling Flow: colostrum Nipples: normal, intact Feeding: breast and formula, pumping breastsLungs: unlabored breathingNeuro: Exam: alert, oriented x3, normal speech, CNII-XII grossly intactAbdomen: post gravid, soft, no abnormal tenderness, no guardingIncision site: well approximated edges, dressing clean dry, no drainage, no inflammationUterus: involution appropriate, non-tenderFundus: below the umbilicusLochia: normalLower extremities: Edema: 1+ pitting Calf tenderness: negative ResultsFindings/Data:Laboratory Tests: 11/04 11/03 0638 0929 Blood Gas Glucose (60 - 110 mg/dl) 50 L Hematology Hgb (10.7 - 13.9 g/dL) 9.5 L Hct (32.1 - 42.1 %) 29.1 L Results: labs reviewed, vital signs stable Discharge Summary GeneralFree Text A P:Jenna is doing well POD 3 s/p Repeat CD. She is meeting all surgical and post milestones, will dc home. Follow up, instructions and precautions d/w pt and her partnerDate of admission:Date of admission: 11/03/20 Admission diagnosis: previous uterine incision (39 2/7 WGA, for repeat cd)Hospital course: repeat admit, epidural anesthesia, nml postop/postpartcareProcedures: repeat CS deliveryDischarge condition: stableDischarge to: Home/Self CareDischarge diagnosis: full-term uncomp delivery, previous uterine incisionDischarge management: less than 30 minsTime spent: Time spent with patient (minutes): 15 >50% spent on counseling/coordination of care: yesBaby A: status: live born Gender: female 1 minute: 8 5 minutes: 9 Anomalies:none notedNursing data:The data set between the solid lines has been imported from nursing documentation. Any exceptions have been noted below under Provider comments. Delivery date infant A: 11/03/20 Delivery time A: 0802Birthweight (gm) A: 3810Feeding preference: Gender A: FemaleApgar 1 minute A: 5 minutes A: 10 minutes A: Provider comments on imported nursing data: [] Plan: routine care, discharge todayVaginal packing at delivery: No Discharge InstructionsInstructions: routine instr sheet given, instr and warnings rev'dDiet: RegularActivity: As Tolerated, No [place] for 6 WksAdditional discharge routines: Attending Follow-UpWeight Monitoring: Not RequiredNotify PCP of Signs/Symptoms:severe pain, heavy vaginal bleeding, post depression, fever> 100.4, woundconcerns Contraception discussed: abstinence for 4-6 weeks, will discuss at PP visitDischarge meds:Continue taking these medications:CALCIUM CARBONATE (TUMS) 200 MG CALCIUM (500 MG) TAB.CHEW 500 MILLIGRAM ORAL EVERY 2 HR NEEDED. as needed for ABDOMINAL CRAMPS PNV WITH FE FUMARATE/FA () 1 EACH TAB 1 TABLET ORAL DAILY. Qty = 90 This prescription has been renewed Start taking the following new medications:IBUPROFEN (MOTRIN) 600 MG TAB 600 MILLIGRAM ORAL EVERY 6 HOURS. as needed for pain Qty = 60 Refills = 1 DOCUSATE SODIUM (COLACE) 100 MG CAP 200 MILLIGRAM ORAL BEDTIME. as needed for constipation Qty = 60 Refills = 1 Prescriptions: e-prescribe Add'l Follow-up AppointmentsAttending Physician: Attending Physician: Alexandra Garcia DO Attending physician follow up timeframe: In 2-3 weeks at 0851 RPT #:[id number] OF REPORT OBObstetric esfa0781-24-45K38:46:00F.EWIL48168061-5964PGJbtxu able for patient mdecZUAMPSNYIEZLVV3406-57-68C61:51:46 [facility] 2020-11-04 09:46:00 AOqaeiswzab88557953v 4AK1aSQdqTRx5IX98nBWsWF0rIk6H rl3DUJwXD33YSP6v8ZY2k0HtD7nS5LIzLv0408-25-66H55:4 6:00 [facility] ([facility])OB Postpart Progr NoteREPORT#:[id number] REPORT STATUS: SignedDATE:11/04/20 TIME: 945 PATIENT: JENNA DUNLAP UNIT #: [id number]#: [id number] ROOM/BED: 2069-ADOB: [birth year] AGE: 25 SEX: F ATTEND: Alexandra Garcia DOADM AUTHOR: Elizabeth Mancini MD * ALL edits or amendments must be made on the electronic/computer document * Subjective SubjectiveAdmission EGA: Weeks: 39 Days: 2EGA at delivery (wks/days): 39 weeks (2 days)Status/day: post operative (day 1)Patient reports: Patient reports: Yes: normal lochia, pain management effective, tolerating po well, voiding well. No: complaints. Comments: doing well in NICU, radha stepping down to L1 well baby nursery today Objective Nursing Documentation ReviewNursing data:The data set between the solid lines has been imported from nursing documentation. Any exceptions have been noted below under Provider comments. Feeding preference: Provider comments on imported nursing data: [] GeneralVS:Vital SignsDate Temp Pulse Resp B/P B/P Mean Pulse Ox YdH030/04-11/04 97.5-98.6 62-73 14-20 108-160/58-84 77.0-106.0 95-99 Last Documented: Result Date Time B/P 120/75 11/04 0405 Temp 98.6 11/04 0405 Pulse 64 11/04 0405 Resp 18 11/04 0405 B/P Mean 90.0 11/04 0405 Pulse Ox 96 11/03 1245 PATIENT WEIGHT: Weight (lb): 278Weight (oz): Weight (kg): 126.099 Notes:ambulating, no distress Physical ExamLungs: unlabored breathingNeuro: Exam: alert, oriented x3, normal speech, CNII-XII grossly intactAbdomen: soft, no abnormal tenderness, no guarding, no rebound tendernessIncision site: well approximated edges, dressing clean dry, no drainage, no inflammationUterus: involution appropriate, non-tenderFundus: firm, at the umbilicusLochia: normalLower extremities: Edema: 1+ pitting Calf tenderness: negative ResultFindings/data:Laboratory Tests: 11/04 06 Hematology Hgb (10.7 - 13.9 g/dL) 9.5 L Hct (32.1 - 42.1 %) 29.1 L Diagnosis, Assessment Plan Diagnosis, Assessment PlanAssessment: nml progressPlan: routine care, discharge tomorrow (vs Friday) at 0948 [facility] #:[id number] OF REPORT PRProgress Ucry9555-76-78X52:46:00F.WMZM64858785-0570ZOWjczz able for patient jrzaNKUVTXCCAOQWYZ1195-05-39R23:48:44 [facility] 2020-11-03 10:16:00 DJclwwwjpyd56051005X ohq2PWjuTuhQ+l64stnD1M0falAyQ HVgp8O03jX2fPzS8N1RPZ2aKbSkF2oPmzy8350-10-77C18:1 6:[id number] [facility] [id number] PATIENT NAME: JENNA DUNLAP ADMIT DATE: 11/03/20ACCOUNT NO: [id number] ROOM NO: F.2070 AGE: 25 SEX: F ADMITTING PHYSICIAN: Alexandra Garcia DO ATTENDING PHYSICIAN: Alexandra Garcia DO OPERATION DATE: 11/03/2020 SURGEON: Alexandra Garcia DO. GREETER: Sasha Gibbons, licensed surgical services director. (An technical assistant was required in this by maintaining an unobstructed view, retracting the wound, maintaining hemostasis and suturing.) Of note, an technical assistant was required for this procedure for assistance withretraction, suture management hemostasis and visualization. PREOPERATIVE DIAGNOSES:1. Intrauterine at 39 weeks 2 days.2. History of previous section x3, contraindication to trial of laborafter . POSTOPERATIVE DIAGNOSES:1. Intrauterine at 39 weeks 2 days.2. History of previous section x3, contraindication to trial of laborafter . ANESTHESIA: Epidural. ESTIMATED BLOOD LOSS: 850 mL. FLUIDS IN: 1100 mL. URINE OUTPUT: 30 mL. COMPLICATIONS: None. INTRAOPERATIVE FINDINGS: Dense adhesions from the fascia to peritoneum andapproximately 10 minutes spent in lysis of adhesions, incidental window of thelower uterine segment. Live female with loose nuchal cord x1 and trueknot in the cord, vertex presentation, Apgars 8 and 9 at 1 and 5 minutes.Weight was 3810 grams or 8 pounds 6 ounces. Normal appearing uterus, bilateraltubes and ovaries. PROCEDURE IN DETAIL: After informed consent was obtained, the patient was takento the operating room where epidural anesthesia was administered withoutdifficulty. The patient was placed in the dorsal supine position in a leftwardlateral tilt and heart tones were noted to be in the 140s. After adequateanalgesia was confirmed and 3 g of Ancef were given for infection prophylaxis, PATIENT NAME: JENNA DUNLAP the Eason catheter was noted to be draining clear yellow urine. A Pfannenstielskin incision was made over the previous scar from her prior cesareans and thiswas carried down to the underlying layer of fascia using the scalpel and alsothe Bovie electrocautery. The fascia was identified in the midline and nickedon either side. This incision was extended laterally using the Chioma clamps andBovie electrocautery tenting upward. The fascia, taking care to avoid anyinjury to the underlying rectus muscles and anatomy. The fascia was denselyadhered to the rectus muscles and the rectus muscles were densely adhered to theperitoneum. Approximately 10 minutes of lysis of adhesions was required toenter the peritoneum at the superior most aspect. Once the peritoneum wasentered, using a finger with a lateral sweep of the digit it was confirmed thatthere was no injury to underlying anatomical structures. The rectus muscles andperitoneum were then dissected down inferiorly using the scalpel. The Balfourretractor was then placed to protect the bladder and the lower uterine segmentwas identified and noted to have adhesions from the bladder to the lower uterinesegment. The serosal aspect of the bladder was noted to be adhered to the loweruterine segment, which was dissected off sharply using the bladed scalpel andalso the Metzenbaum scissors. The Lianne was then replaced to protect thebladder and the lower uterine segment was then incised in a transverse fashion.There was a 2 to 3 cm incidental window noted left of the midline and uponentry, there was clear amniotic fluid noted and the infant's head was found handy in vertex presentation. The infant's head was elevated out of the pelviswithout difficulty. A loose nuchal cord was encountered and reduced withoutdifficulty and once the shoulders and body were delivered, the nose and mouthwere bulb suctioned. A vigorous spontaneous cry was noted. The cord was thenclamped and cut after approximately 30 seconds delay. Cord blood was collectedfor infant typing. The infant was handed off to the waiting nurse and theplacenta was then exteriorized after collection of cord blood was obtained Marco A Keane. Once the placenta was extracted, the uterus was then exteriorizedand wiped clean with a moist laparotomy sponge. The hysterotomy site was thenreapproximated in 2 layers in a continuous running interlocking fashion with asecond layer imbricating the first using 0 Vicryl suture. Excellent hemostasiswas obtained. A single ovkymz-yh-vabjf stitch was required in the midline for asmall amount of oozing along the uterine incision and this secured hemostasis.Upon inspection of the uterus, bilateral tubes and ovaries, everything appearedgrossly normal and the uterus was then returned to the abdominal cavity aftercopious irrigation and suction of the posterior cul-de-sac. The superior aspectof the fascia was elevated upwards with the Fabienne clamp and the peritoneum wasthen reapproximated using 2-0 Vicryl suture in a continuous running fashion.The rectus muscles were then reapproximated in a vertical mattress fashion using2-0 chromic suture. The fascia was then reapproximated in a continuous runningfashion starting from the corners imbricating the knots and meeting in themidline using #1 Vicryl. The subcutaneous fat was then copiously irrigated andno superficial vessels were identified to be bleeding. The subcutaneous fat wasthen reapproximated in a single layer using 2-0 plain suture in a continuousrunning fashion and the skin was then closed in a subcuticular fashion using 3-0Monocryl on a Yossi needle. Benzoin and Steri-Strips were then applied alongwith a pressure dressing. All instrument, lap, and sponge counts were correctx2. The infant was noted to require some oxygenation due to desaturation andtherefore was going to NICU per the team. Otherwise, was doing welland mother tolerated the procedure well and was taken to the recovery room instable condition. Dictated By: Alexandra Garcia DO PATIENT NAME: JENNA DUNLAP WT: OP:F.ALFREDA/BRENNEN/NTSDD: 11/03/2020 10:16:58DT: 11/03/2020 11:39:08Conf#: [id number]#: [id number] Authenticated and Edited by Alexandra Garcia On 11/10/20 4:11:53 PM at 1614 PATIENT NAME: JENNA DUNLAP [id number]:39:00F.[id number] lable for patient lttfTWJKPORUJOWNFM6362-10-71D08:14:31 [facility] 2020-11-03 09:56:00 [id number] FKLVYoYPbKcYpBDuEUq5RMpFizzJu tB/7Rg0ziENV5VerzP4cB2hmbNeUyM0fmn6256-93-01E28:5 6:00 [facility] ([facility])OB Delivery NoteREPORT#:[id number] REPORT STATUS: SignedDATE:11/03/20 TIME: 0956 PATIENT: JENNA DUNLAP UNIT #: [id number]#: [id number] [facility] AGE: 25 SEX: F ATTEND: Alexandra Garcia DOADM AUTHOR: Alexandra Garcia DO * ALL edits or amendments must be made on the electronic/computer document * OB Delivery Nursing Documentation ReviewNursing data:The data set between the solid lines has been imported from nursing documentation. Any exceptions have been noted below under Provider comments. ROM date: 11/03/20 ROM time: 0802Membranes rupture method: AROMAmniotic fluid color: ClearAmniotic fluid amount: Steroids prior to arrival: Antibiotic prophylaxis given: YesNewborn evaluation at delivery: Delivery date infant A: 11/03/20 Delivery time A: 0802Birthweight (gm) A: 3810Weight (lb) infant A: Weight (oz) A: Gender A: FemaleApgar 1 minute infant A: 5 minutes infant A: 10 minutes infant A: Cord pH obtained A: Vacuum time infant A: Vacuum # pulls A: Vacuum # popoffs infant A: QBL at delivery: Provider comments on imported nursing data: [] Pre-deliveryGBS status: GBS status: negativeNewborn evaluation at delivery: NRP certified personnel, teamAdmission EGA: Weeks: 39 Days: 2EGA at delivery (wks/days): 39 weeks (2 days) Steroids Prior to DeliverySteroids prior to delivery: no, delivery on arrival Baby A InformationBaby A information Delivery date: 11/03/20 Delivery time: 0802 status: live born Wt of baby (grams): 3810 Wt of baby (lbs/oz): 8lb 6oz Gender: female 1 minute: 8 5 minutes: 9 Presentation: vertex Anomalies:none notedABG details Baby A Cord blood gases: not collectedNuchal cord Baby A Nuchal cord: yes (loose and reduced) Anomalies:true knotAdditional comments:cord clamping delayed 30 secCord blood collected for donation to [facility] DeliveryCesarean section indication: elective repeat , previous Priority: scheduled : : contraindicated Antibiotic prior to incision: 1 dose )(SCDs applied activated: Yes Uterine incision: low transverse Uterine scar: incidental window Consent: indication discussed, questions answered, pt consent to op delivery Mother's condition: mother stable 's condition: infant to NICU (for Oxygen desaturation) Op/Inv Proc Note - Brief)(Start date: 11/03/2020)( Procedure(s) performed: repeat low transverse c/s)( Primary Surgeon:Alexandra Garcia DO)( Motion Picture Cameraman(s):JOSE Roland)( Pre-procedure diagnosis:1. SIUP @ 39.2 wks2. h/o previous C/section x3 )( Post-procedure diagnosis:same)( Technique/Procedure:Pfannenstiel skin incisionUterus closed in 2 layersSkin SQ, steristripsAnesthesia: epidural anesthesia)( Estimated blood loss (ml): 850)( Specimen removed/altered: placenta)( Complications: noneDrain(s): foleyTube(s): noneImplant(s): noneFluids: 1100 ccUrine output:30 cc)( Finding(s):Dense adhesions from fasica to peritoneum, 10 min spent in LOAIncidental window of lower uterine segmentLive female with loose nuchal cord x1 and true knot in cord, vertex presentationAPGARS 8/9, Wt 3810g / 7qd7bhBxwepf appearing uterus, B/L tubes and ovaries Condition: stableDictation number: #[id number] Blood Loss/DetailsBlood loss at delivery: <1000 mlEBL at delivery (ml's): 850 at 1018 RPT #:[id number] OF REPORT OBObstetric fqia5700-98-72C42:56:00F.[id number] able for patient yqgeMKQXRGLJIPLYCX4048-22-28R63:18:18 [facility] 2020-11-03 07:19:00 [id number] hLt+8l/up2kN+SiyfkWXE+ysJAXnd hqJWorRoZZbonZUU5q14CfdTJcgzr+BZh42782-40-32Z14:1 9:00 [facility])OB Admission / H PREPORT#:[id number] REPORT STATUS: SignedDATE:11/03/20 TIME: 718 PATIENT: JENNA DUNLAP UNIT #: [id number]#: [id number] [address] AGE: 25 SEX: F ATTEND: Alexandra Garcia DOADM AUTHOR: Alexandra Garcia DO * ALL edits or amendments must be made on the electronic/computer document * OB History Nursing Documentation ReviewNursing data:The data set between the solid lines has been imported from nursing documentation. Any exceptions have been noted below under Provider comments. Current dataSteroids prior to arrival: ROM date: ROM time: EDC date: 11/08/20 Prior historyGravida: 5 Para: 3 Term: : Abortions spontaneous: Abortions induced: Living children: Ectopic: Stillbirths: Live births: deaths: Number of previous C/S: Reported maternal labs/dataBlood type: ARh type: NegativeRubella: Hepatitis B: NegativeHIV exposure test: VDRL: Group B beta strep: NegativeRho(D) immune globulin this preg: Monitor mode - UA: Feeding preference: Provider comments on imported nursing data: [] Chief complaint: scheduled C-SectionHPI:25 y/o @ 39.2 wks presents for scheduled Rpt c/section due to contraindication for TOLAC w/ h/o previous C/section x3. She was late to care at18 wks and is dated by an 18 wk US not c/w LMP. history: : 5 Term: 3 : 01 Abortus: 3Current : Best EDC: 11/08/20 Admission EGA (weeks) 39 Admission EGA (days) 2 EDC based on: ultrasound, 2nd trimester Steroids prior to delivery: no, delivery on arrivalConditions of : breech presentationLabs: Blood type: A Rh: negative Rubella: immune Hepatitis B: negative HIV: negative STD: negative Syphilis: currently negative GBS: negativeProcedures: ultrasound, genetic testingGenetic testing: congenital heart defect, Down syndrome, Fragile X, sickle cell diseaseNotes:Karo NIPT 46,XX low riskCarrier screening negPast medical history: denies PMHPast surgical history: C-sectionSocial history: , no alcohol use, no tobacco use, no drug useFamily historyFamily history was reviewed; no changes noted.Medications:Home Medications:PNV WITH FE FUMARATE/FA () 1 TAB PO DAILY CALCIUM CARBONATE (TUMS) 500 MG PO Q2H PRN PRN ABDOMINAL CRAMPS AllergiesCoded Allergies:No Known Allergies (11/03/20) Review of SystemsAll systems rev neg: except as marked Objective GeneralVS:PATIENT WEIGHT: Weight (lb): 278Weight (oz): Weight (kg): 126.099 Physical ExamHEENT: normocephalic w/o injuryCardiac: no clinically sig murmurLungs: unlabored breathingBreasts: deferredNeuro: Exam: alert, oriented x3, normal speech, CNII-XII grossly intactAbdomen: gravid, soft, no abnormal tendernessMusculoskeletal: normal inspection, painless range of motionUterine activity: Monitor: toco Frequency (description): noneMembranes: Membranes: IntactBaby A: Baby A baseline: 150 bpm Baby A variability: moderate 6-25 bpm Baby A accelerations: 15 X 15 Baby A decelerations: none Baby A FHR category: category 1 ResultFindings/Data:Laboratory Tests Test Result Date Time Coagulation PT (10.4 - 12.4 secs) 10.4 12/ 1142 PTT (Coamo) (22 - 38 secs) 26.1 12/ 1142 Fibrinogen (309 - 518 mg/dL) 641 H 12/ 1142 Hematology WBC (6.6 - 12.1 K/mm3) 9.7 12/ 1142 RBC (3.45 - 5.01 M/mm3) 3.71 12/ 1142 Hgb (10.7 - 13.9 g/dL) 11.0 12/02 1142 Hct (32.1 - 42.1 %) 33.0 12/02 1142 MCV (84.1 - 94.8 fL) 89 12/02 1142 MCH (27 - 35 pg) 29.6 12/02 1142 MCHC (32.2 - 34.1 gm/dL) 33.3 12/02 1142 RDW (12.4 - 16.5 %) 12.7 12/ 1142 Plt Count (133 - 385 K/mm3) 226 12/02 1142 MPV (9.1 - 12.7 fl) 11.1 12/02 1142 Neut % (Auto) (56.5 - 79.4 %) 66.6 12/02 1142 Lymph % (Auto) (14.3 - 34.3 %) 26.6 12/ 1142 [place] % (Auto) (5.1 - 10.4 %) 5.3 12/ 1142 Eos % (Auto) (0.1 - 3.0 %) 0.8 12/ 1142 Baso % (Auto) (0.1 - 1.0 %) 0.3 12/ 1142 Neut # (Auto) (K/mm3) 6.5 12/ 1142 Lymph # (Auto) (K/mm3) 2.6 11/01 1142 [place] # (Auto) (K/mm3) 0.5 11/01 1142 Eos # (Auto) (K/mm3) 0.08 11/01 114 Baso # (Auto) (K/mm3) 0.0 11/01 114 Serology Treponema pallidum Ab (NONREACTIVE) NONREACTIVE 11/01 114 Hep Bs Antigen (NONREACTIVE) NONREACTIVE 11/01 114 Hepatitis C Antibody (NONREACTIVE) NONREACTIVE 11/01 114 Hep C Ab Signal/Cutoff (<0.80) 0.08 11/01 114 HIV 1 2 Antibody (NONREACTIVE) NONREACTIVE 11/01 114 SARS-CoV-2 Ag (Rapid) (NEGATIVE) NEGATIVE 11/01 114 Urines Urine Protein (NEGATIVE) NEGATIVE 11/01 1142 Urine Glucose (UA) (NEGATIVE) NEGATIVE 11/01 1142 Urine Ketones (NEGATIVE) 1+ 11/01 1142 Results: labs reviewed, vital signs stable Diagnosis, Assessment Plan Diagnosis, Assessment PlanAssessment/Impression: previous C/S, for repeatPlan: scheduled A-cqkkxfkAaorsu-iiawa C section: elective repeat , breech presentation, prior uterine surgeryPlan discussed with: patient, spouse/partner, nurseComments:R/B/A/C discussed in office and again today including but not limited to infection, hemorrhage, injury to surrounding anatomy i.e. bladder / bowel, postop hematoma / infection / VTE. Pt given opportunity to ask questions and hadnone. at 0726 [facility] #:[id number] OF REPORT HPHistory and physical whfhbwyrejc2482-56-31A60:19:00F.[id number] AVAvailable for patient gyamDGQQYASWXLRQQL9716-15-01T58:27:00 [facility]
[2024-06-04] MEDS ORDERED: NA CHLORIDE 0.9% 1,000 ML ONE (23:57)
[2024-06-05 00:11] LABS: Specific Gravity 1.035 (1.005-1.030)
[2024-06-05 00:26] LABS: ALT/SGPT 27 U/L (13-56); AST/SGOT 12 U/L (15-37); Albumin 3.7 g/dL (3.4-5.0); Albumin/Globulin Ratio 0.9 (1.1-1.8); Alkaline Phosphatase 67 U/L (45-117); Anion Gap 5.5 mEq/L (5.0-15.0); BUN Blood Urea Nitrogen 16 mg/dL (7-18); Bicarbonate 30 mEq/L (21-32); Bilirubin Total 0.3 mg/dL (0.2-1.0); Glomerular Filtration Rate 83 ml/min (=/>90); Glucose Level 119 mg/dL (74-106); Lipase 22 U/L (13-75); Potassium 3.5 mEq/L (3.5-5.1); Protein, Total 7.7 g/dL (6.4-8.2); Sodium Level 140 mEq/L (136-145)
[2024-06-05 00:34] LABS: Bilirubin Direct < 0.2 mg/dL (0-0.2); Bilirubin Indirect, Calculated 0.1 mg/dL (0.2-0.8)
[2024-06-05 00:37] LABS: Calcium Oxalate Crystals- Ur Few /HPF (None Seen); Specific Gravity > 1.030 (1.005-1.030); Sqamous Epithelial <5 /HPF (None Seen); Urine Bacteria <20 /HPF (<20); Urine Bilirubin NEGATIVE (Negative); Urine Blood 1+ (Negative); Urine Clarity Clear (Clear); Urine Color Yellow (Yellow); Urine Culture Reflex Order REFLEXED; Urine Glucose NEGATIVE (Negative); Urine Ketones NEGATIVE (Negative); Urine Microscopic Reflex YN ORDER UMIC; Urine Mucus Slight /HPF (None Seen); Urine Nitrite NEGATIVE (Negative); Urine Protein TRACE (Negative); Urine Urobilinogen Normal (Normal); Urine pH 5.5 (5.0-7.0)
[2024-06-05 01:07] LABS: Absolute Eosinophils 0.1 K/uL (0-0.5); Absolute Lymphocytes (CBC) 2.3 K/uL (0.7-4.9); Absolute Monocytes 0.3 K/uL (0.1-1.3); Absolute Neutrophil 3.5 K/uL (1.8-8.0); Basophils % 0.6 % (0-1.3); Eosinophils % 1.6 % (0-4.4); Lymphocytes % 37.1 % (15.3-44.8); MCH 29.1 pg (27.0-35.0); MCHC 34.3 g/dL (32.0-36.0); MCV 84.9 fL (80-100); MPV 8.2 fL (7.6-11.3); Monocytes % 5.3 % (3.3-12.3); Neutrophils % 55.4 % (41.7-73.7); Nucleated Red Blood Cells % 0.4 % (0-0); Platelets 329 thou/uL (152-406); RBC Red Blood Cell Count 4.47 M/uL (3.86-4.86); Red Cell Distribution Width 13.2 % (12.1-15.2)
[2024-06-05] MEDS ORDERED: FLUCONAZOLE 100 MG TAB ONE (02:50)
--- NOTE | 2024-06-05 02:52 | EDPHYS ---
Physician Documentation [facility] Name: Sis Arroyo Age: 29 yrs Sex: Female : 1995 Arrival Date: 06/04/2024 Time: 21:33 Bed DX3 Private MD: ED Physician Mariano Keane HPI: 06/05 02:42 This 29 yrs old Female presents to ER via Ambulatory with complaints of kalani Vaginal Pain - Upper abd cramping. 02:42 The patient presents with vaginal discharge, patient has had similar discharge in the kalani past. Onset: The symptoms/episode began/occurred 2 day(s) ago. Modifying factors: The symptoms are alleviated by nothing, the symptoms are aggravated by nothing. Associated signs and symptoms: The patient has no apparent associated signs or symptoms. Severity of symptoms: At their worst the symptoms were mild, moderate, in the emergency department the symptoms are unchanged, despite home interventions. The patient is sexually active, reportedly has a single partner. The patient has experienced similar episodes in the past, a few times. Historical: - Allergies: 06/04 22:03 PENICILLINS; al5 22:03 Tdap; al5 - Home Meds: 22:03 Promethazine Oral [Active]; al5 - PSHx: 22:03 section; al5 - Immunization history:: Adult Immunizations up to date. - Infectious Disease History:: Denies. - Social history:: Smoking status: Patient denies any tobacco usage or history of. - Family history:: not pertinent. ROS: 06/05 02:42 Constitutional: Negative for fever, chills, and weight loss, Eyes: Negative for injury, kalani pain, redness, and discharge, ENT: Negative for injury, pain, and discharge, Neck: Negative for injury, pain, and swelling, Cardiovascular: Negative for chest pain, palpitations, and edema, Respiratory: Negative for shortness of breath, cough, wheezing, and pleuritic chest pain, Back: Negative for injury and pain, MS/Extremity: Negative for injury and deformity, Skin: Negative for injury, rash, and discoloration, Neuro: Negative for headache, weakness, numbness, tingling, and seizure, Psych: Negative for depression, anxiety, suicide ideation, homicidal ideation, and hallucinations, Allergy/Immunology: Negative for hives, rash, and allergies, Endocrine: Negative for neck swelling, polydipsia, polyuria, polyphagia, and marked weight changes, Hematologic/Lymphatic: Negative for swollen nodes, abnormal bleeding, and unusual bruising, Abdomen/GI: Positive for abdominal pain, of the epigastric area, right upper quadrant and left upper quadrant, : Positive for vaginal discharge, vaginal itching, Exam: 02:42 Constitutional: This is a well developed, well nourished patient who is awake, alert, kalani and in no acute distress. Head/Face: Normocephalic, atraumatic. Eyes: Pupils equal round and reactive to light, extra-ocular motions intact. Lids and lashes normal. Conjunctiva and sclera are non-icteric and not injected. Cornea within normal limits. Periorbital areas with no swelling, redness, or edema. ENT: Nares patent. No nasal discharge, no septal abnormalities noted. Tympanic membranes are normal and external auditory canals are clear. Oropharynx with no redness, swelling, or masses, exudates, or evidence of obstruction, uvula midline. Mucous membranes moist. Neck: Trachea midline, no thyromegaly or masses palpated, and no cervical lymphadenopathy. Supple, full range of motion without nuchal rigidity, or vertebral point tenderness. No Meningismus. Chest/axilla: Normal chest wall appearance and motion. Nontender with no deformity. No lesions are appreciated. Cardiovascular: Regular rate and rhythm with a normal S1 and S2. No gallops, murmurs, or rubs. Normal PMI, no JVD. No pulse deficits. Respiratory: Lungs have equal breath sounds bilaterally, clear to auscultation and percussion. No rales, rhonchi or wheezes noted. No increased work of breathing, no retractions or nasal flaring. Back: No spinal tenderness. No costovertebral tenderness. Full range of motion. Skin: Warm, dry with normal turgor. Normal color with no rashes, no lesions, and no evidence of cellulitis. MS/ Extremity: Pulses equal, no cyanosis. Neurovascular intact. Full, normal range of motion. Neuro: Awake and alert, GCS 15, oriented to person, place, time, and situation. Cranial nerves II-XII grossly intact. Motor strength 5/5 in all extremities. Sensory grossly intact. Cerebellar exam normal. Normal gait. Psych: Awake, alert, with orientation to person, place and time. Behavior, mood, and affect are within normal limits. 02:42 Abdomen/GI: Inspection: distension, Bowel sounds: active, Liver: no appreciated palpable abnormalities, Hernia: not appreciated, Vital Signs: 06/04 21:59 BP 145 / 87; Pulse 84; Resp 16; Temp 97.7(TE); Pulse Ox 98% on R/A; Weight 123.8 kg; al5 Height 5 ft. 1 in. ; Pain 03/10; 06/05 03:16 BP 138 / 84; Pulse 80; Resp 16; Temp 98; Pulse Ox 99% ; vc1 06/04 21:59 Body Mass Index 51.57 (123.80 kg, 154.94 cm) al5 06/04 21:59 Pain Scale: Adult al5 MDM: 06/04 21:59 Patient medically screened. [facility] 06/05 02:48 Differential diagnosis: nonspecific abdominal pain, urinary tract infection. Data kalani reviewed: vital signs, nurses notes, lab test result(s), radiologic studies, ultrasound. Consideration of Admission/Observation Escalation of care including admission/observation considered. I considered the following discharge prescriptions or medication management in the emergency department Medications were administered in the Emergency Department. See MAR. Independent interpretation of the following test(s) in the Emergency Department Radiology Department Ultrasound: My interpretation is gb usg. Test considered but Not performed: CT: no ct ab/pel. Historians other than the Patient: pt well informed. Care significantly affected by the following chronic conditions: Obesity. 06/04 22:01 Order name: Basic Metabolic Panel; Complete Time: 02:40 [facility] 06/04 22:01 Order name: CBC with Diff; Complete Time: 02:40 [facility] 06/04 22:01 Order name: Test, Urine; Complete Time: 02:40 [facility] 06/04 22:01 Order name: Urinalysis w/ reflexes; Complete Time: 02:52 [facility] 06/04 22:01 Order name: LFT's; Complete Time: 02:40 [facility] 06/04 22:01 Order name: Lipase; Complete Time: 02:40 [facility] 06/05 02:54 Order name: Urine Culture EDMS 06/04 22:01 Order name: US Abdomen Limited [facility] 06/04 22:01 Order name: IV Saline Lock; Complete Time: 23:55 [facility] 06/04 22:01 Order name: Labs collected and sent; Complete Time: 23:56 kalani 06/04 22:01 Order name: NPO; Complete Time: 23:56 kalani Administered Medications: 00:04 Drug: NS 0.9% IV 1000 ml IV at 1 bolus Per protocol; 1000 mL bolus Route: IV; Rate: 1 al5 bolus; Site: right antecubital; 01:00 Follow up: IV Status: Completed infusion; IV Intake: 1000ml vc1 02:59 Drug: Fluconazole PO 200 mg PO once Route: PO; vc1 03:12 Follow up: Response: Medication administered at discharge. vc1 03:11 Drug: Rocephin IV 1 grams IV at per protocol once; Given slow IV push per pharmacy vc1 instructions Route: IV; Rate: per protocol; Site: right antecubital; 03:12 Follow up: IV Status: Completed infusion; IV Intake: 10ml vc1 03:11 Drug: AZITHromycin PO 1 grams PO once Route: PO; vc1 03:12 Follow up: Response: Medication administered at discharge. vc1 03:11 Drug: Ciprofloxacin PO 500 mg PO once Route: PO; vc1 03:12 Follow up: Response: Medication administered at discharge. vc1 Disposition Summary: 06/05/24 02:51 Discharge Ordered Notes: Location: Home kalani Problem: new kalani Symptoms: have improved kalani Condition: Stable kalani Diagnosis - Epigastric abdominal tenderness kalani - Candidiasis of vulva and vagina kalani - UTI/ Urinary tract infection, site not specified kalani Followup: kalani - With: Private Physician - When: 2 - 3 days - Reason: Recheck today's complaints, Re-evaluation by your physician Followup: kalani - With: Odalis Hicks MD - When: 2 - 3 days - Reason: Recheck today's complaints, Re-evaluation by your physician Discharge Instructions: - Discharge Summary Sheet kalani - Abdominal Pain, Adult kalani - Urinary Tract Infection, Adult kalani - Vaginal Yeast Infection, Adult kalani - Urinary Tract Infection, Adult, [id number] kalani - Abdominal Pain, Adult, [id number] kalani - Vaginitis kalani - Vaginitis, [id number] kalani Forms: - Medication Reconciliation Form kalani - Antibiotic Education kalani - Prescription Opioid Use kalani - Patient Portal Instructions kalani - Leadership Thank You Letter [facility] Prescriptions: - Cipro 250 mg Oral tablet - take 1 tablet ORAL route every 12 hours; 14 tablet; Refills: 0, Product kalani Selection Permitted - Fluconazole 200 mg Oral tablet - take 1 tablet ORAL route once daily; 3 tablet; Refills: 0, Product Selection kalani Permitted Signatures: Dispatcher [employer] Mariano Brown MD MD cha Calcote, Vanessa, RN RN vc1 Elicia Oleary RN RN al5 Corrections: (The following items were deleted from the chart) 06/04 22: 22:01 ABO/RH TYPING+BB.LAB.BRZ ordered. EDMS EDMS 22: 22:01 BASIC METABOLIC PANEL+C.LAB.BRZ ordered. EDMS EDMS 22: 22:01 CBC+H.LAB.BRZ ordered. EDMS EDMS 22: 22:01 Test, Urine+UC.LAB.BRZ ordered. EDMS EDMS 22: 22:01 Urinalysis+U.LAB.BRZ ordered. EDMS EDMS 22: 22:01 HEPATIC FUNCTION+C.LAB.BRZ ordered. EDMS EDMS 22: 22:01 LIPASE+C.LAB.BRZ ordered. EDMS EDMS 22: 22:01 Abdomen Limited+US.RAD.BRZ ordered. EDMS EDMS 22:04 22:03 PMHx: RH negative; al5 al5
--- NOTE | 2024-06-05 02:52 | ER ---
Nurse's Notes [facility] Name: Sis Arroyo Age: 29 yrs Sex: Female : 1995 Arrival Date: 06/04/2024 Time: 21:33 Bed DX3 Private MD: Diagnosis: Epigastric abdominal tenderness;Candidiasis of vulva and vagina;UTI/ Urinary tract infection, site not specified Presentation: 06/04 21:59 Chief complaint: Patient states: c/o abdominal pain, vaginal irritation, and vaginal al5 bleeding x3 days. small amount of bleeding, noticed when wiping. Used otc monistat and vagasil, but has not helped. Coronavirus screen: At this time, the client does not indicate any symptoms associated with coronavirus-19. Ebola Screen: No symptoms or risks identified at this time. Initial Sepsis Screen: Does the patient meet any 2 criteria? No. Patient's initial sepsis screen is negative. Does the patient have a suspected source of infection? No. Patient's initial sepsis screen is negative. Risk Assessment: Do you want to hurt yourself or someone else? Patient reports no desire to harm self or others. Onset of symptoms was June 01, 2024. 21:59 Method Of Arrival: Ambulatory al5 21:59 Acuity: FABRICIO 3 al5 Triage Assessment: 22:04 General: Appears in no apparent distress. Behavior is calm, cooperative. Pain: al5 Complains of pain in abdomen Pain currently is 4 out of 10 on a pain scale. Pain began 3 days ago Is continuous. EENT: No deficits noted. No signs and/or symptoms were reported regarding the EENT system. Neuro: No deficits noted. Level of Consciousness is awake, alert, obeys commands, Oriented to person, place, time, situation, Speech is normal, Facial symmetry appears normal. Cardiovascular: No deficits noted. Capillary refill < 3 seconds Patient's skin is warm and dry. Respiratory: No deficits noted. Airway is patent Trachea midline Respiratory effort is even, unlabored, Respiratory pattern is regular, symmetrical. GI: Abdomen is round non-distended. : Reports burning with urination, vaginal itching, x3 days vaginal bleeding that is notices when wiping. last menstrual period was last week. Derm: Skin is intact, Skin is dry, Skin is pink, warm \T\ dry. normal, Skin temperature is warm. Musculoskeletal: No deficits noted. No signs and/or symptoms reported regarding the musculoskeletal system. Historical: - Allergies: 22:03 PENICILLINS; al5 22:03 Tdap; al5 - Home Meds: 22:03 Promethazine Oral [Active]; al5 - PSHx: 22:03 section; al5 - Immunization history:: Adult Immunizations up to date. - Infectious Disease History:: Denies. - Social history:: Smoking status: Patient denies any tobacco usage or history of. - Family history:: not pertinent. Screenin:57 [facility] ED Fall Risk Assessment (Adult) History of falling in the last 3 months, cm10 including since admission No falls in past 3 months (0 pts) Confusion or Disorientation No (0 pts) Intoxicated or Sedated No (0 pts) Impaired Gait No (0 pts) Mobility Assist Device Used No (0 pt) Altered Elimination No (0 pt) Score/Fall Risk Level 0 - 2 = Low Risk Oriented to surroundings, Maintained a safe environment, Hourly rounding (assess needs \T\ fall precautionary measures) done. Abuse screen: Denies threats or abuse. Denies injuries from another. Nutritional screening: No deficits noted. Tuberculosis screening: No symptoms or risk factors identified. Assessment: 06/05 00:00 General: Appears in no apparent distress. uncomfortable, Behavior is calm, cooperative, vc1 appropriate for age. Pain: Complains of pain in groin. Neuro: Level of Consciousness is awake, alert, obeys commands, Oriented to person, place, time, situation, Appropriate for age. Cardiovascular: Heart tones S1 S2 Capillary refill < 3 seconds Patient's skin is warm and dry. Respiratory: Airway is patent Respiratory effort is even, unlabored, Respiratory pattern is regular, symmetrical, Breath sounds are clear bilaterally. GI: No deficits noted. No signs and/or symptoms were reported involving the gastrointestinal system. Abdomen is round non-distended. : Reports burning with urination, urinary frequency, vaginal itching, vaginal bleeding that is. EENT: No deficits noted. No signs and/or symptoms were reported regarding the EENT system. Derm: Skin is intact, is healthy with good turgor, Skin is dry, Skin is normal, Skin temperature is warm. 03:14 Reassessment: Patient and/or family updated on plan of care and expected duration. Pain vc1 level reassessed. Patient is alert, oriented x 3, equal unlabored respirations, skin warm/dry/pink. Patient states symptoms have improved. Vital Signs: 06/04 21:59 BP 145 / 87; Pulse 84; Resp 16; Temp 97.7(TE); Pulse Ox 98% on R/A; Weight 123.8 kg; al5 Height 5 ft. 1 in. ; Pain 4/10; 06/05 03:16 BP 138 / 84; Pulse 80; Resp 16; Temp 98; Pulse Ox 99% ; vc1 06/04 21:59 Body Mass Index 51.57 (123.80 kg, 154.94 cm) al5 06/04 21:59 Pain Scale: Adult al5 ED Course: 06/04 21:36 Patient arrived in ED. mg5 21:59 Mariano Keane MD is Attending Physician. kalani 22:03 Triage completed. al5 22:07 Arm band placed on right wrist. Patient placed in an exam room, on a stretcher. al5 22:28 Alejandra Viveros is Primary Nurse. cp4 22:44 US Abdomen Limited In Process Unspecified. EDMS 23:56 Abo/rh Typing Sent. cm10 23:56 Basic Metabolic Panel Sent. cm10 23:56 CBC with Diff Sent. cm10 23:56 Test, Urine Sent. cm10 23:56 Urinalysis w/ reflexes Sent. cm10 23:56 Lipase Sent. cm10 23:56 LFT's Sent. cm10 23:57 Provided Education on: ER Process and procedures.. cm10 23:57 Initial lab(s) drawn, by ks, sent to lab. Urine collected: clean catch specimen. cm10 Inserted saline lock: 20 gauge in right antecubital area, using aseptic technique. Blood collected. 23:57 No provider procedures requiring assistance completed. cm10 23:58 Patient has correct armband on for positive identification. cm10 06/05 02:51 Odalis Hicks MD is Referral Physician. kalani 03:14 IV discontinued, intact, bleeding controlled, No redness/swelling at site. Pressure vc1 dressing applied. Administered Medications: 00:04 Drug: NS 0.9% IV 1000 ml IV at 1 bolus Per protocol; 1000 mL bolus Route: IV; Rate: 1 al5 bolus; Site: right antecubital; 01:00 Follow up: IV Status: Completed infusion; IV Intake: 1000ml vc1 02:59 Drug: Fluconazole PO 200 mg PO once Route: PO; vc1 03:12 Follow up: Response: Medication administered at discharge. vc1 03:11 Drug: Rocephin IV 1 grams IV at per protocol once; Given slow IV push per pharmacy vc1 instructions Route: IV; Rate: per protocol; Site: right antecubital; 03:12 Follow up: IV Status: Completed infusion; IV Intake: 10ml vc1 03:11 Drug: AZITHromycin PO 1 grams PO once Route: PO; vc1 03:12 Follow up: Response: Medication administered at discharge. vc1 03:11 Drug: Ciprofloxacin PO 500 mg PO once Route: PO; vc1 03:12 Follow up: Response: Medication administered at discharge. vc1 Medication: 06/04 23:58 VIS not applicable for this client. cm10 Intake: 06/05 01:00 IV: 1000ml; Total: 1000ml. vc1 03:12 IV: 10ml; Total: 1010ml. vc1 Outcome: 02:51 Discharge ordered by . kalani 03:13 Discharged to home ambulatory, vc1 03:13 Condition: good 03:13 Discharge instructions given to patient, Instructed on discharge instructions, follow up and referral plans. medication usage, Demonstrated understanding of instructions, follow-up care, medications, Prescriptions given X 2, 03:16 Patient left the ED. vc1 Signatures: Dispatcher [employer] EDMT Mariano Keane MD MD cha Calcote, Vanessa, RN RN vc1 Mckenna Alicea RN RN 10 Michaela Merchant 5 Alejandra Viveros cp4 Elicia Oleary RN RN al5 Corrections: (The following items were deleted from the chart) 06/04 22:04 22:03 PMHx: RH negative; al5 al5 23:56 22:32 Patient's name was called from [facility]. No response. Unable to locate patient. cm10 Will disposition as left without being seen by a provider. vc1
[2024-06-05] MEDS ORDERED: CEFTRIAXONE 1000 MG/VIAL ONE (03:01)
[2024-06-05] MEDS ORDERED: AZITHROMYCIN 250 MG TAB ONE (03:02)
[2024-06-05] MEDS ORDERED: CIPROFLOXACIN HCL 500 MG TAB ONE (03:03)
[2024-06-05 03:30] VITALS: BP 138/84; TEMP 98; O2SAT 99
--- NOTE | 2024-06-06 16:49 | RAD REPORT ---
EXAM DESCRIPTION: Abdomen Exam Limited RadLex: US ABDOMEN LIMITED CLINICAL HISTORY: ABD PAIN. COMPARISON: None. TECHNIQUE: Ultrasound of the gallbladder with Doppler flow imaging was obtained. FINDINGS: Gallbladder: No cholelithiasis or gallbladder wall thickening. No pericholecystic fluid. N egative sonographic Castro's sign. Bile ducts: The common bile duct measures 0.5 cm in diameter at the attila hepatis. IMPRESSION: No cholelithiasis or acute findings. Electronically signed by: Dipti Kaiser MD 06/04/2024 10:54 PM CDT RP Due to temporary technical issues with the PACS/Fluency reporting system, reports are being signed by the in house radiologists without review as a courtesy to insure prompt reporting. The interpreting radiologist is fully responsible for the content of the report.
== END 2024-06-05 03:16 | disposition home or self-care (01) ==
LOC: ER 21:33
DX: B37.31 Acute candidiasis of vulva and vagina (principal); N39.0 Urinary tract infection, site not specified
CPT/HCPCS: 36415; 76705; 80048; 80076; 81001; 81025; 83690; 85025; 86900; 86901; 87086; 87088; 96361; 96374; 99284; J0696; J7030